=== PATIENT | male | born 1955 | race Caucasian/White ===

== ENCOUNTER → 2018-01-12 10:00 | Outpatient (CLI) | payer SELFPAY ==
--- NOTE | 2018-01-12 10:00 | DT_ITS ---
This patient was seen during an EMR downtime January 08, 2018 - January 15, 2018. This patient may have a combination of paper and electronic documentation or all paper documentation. All documentation is viewable within the e-chart portion of [employer] for each patient visit.
[2018-01-12 14:29] LABS: AST(SGOT) 22 U/L (15-37); Alanine Aminotransfer ALT/SGPT 31 U/L (16-61); Albumin, Serum 3.7 g/dL (3.2-5.0); Alkaline Phosphatase 56 U/L (45-117); Bilirubin, Direct 0.15 mg/dL (0.00-0.30); Cholesterol 136 mg/dL (200); Globulin 3.2 g/dL (2.2-4.2); High Density Lipoprotein 41 mg/dL; Protein, Total 6.9 g/dL (6.4-8.2); Triglycerides 69 mg/dL; Very Low Density Lipoprotein 14 mg/dL (5-40)
== END ==
PROVIDERS: Family Provider Family Medicine; PCP Family Medicine; Visit Provider Nurse Practitioner Family
DX: E78.5 Hyperlipidemia, unspecified (principal); Z79.899 Other long term (current) drug therapy
CPT/HCPCS: 36415; 80061; 80076

== ENCOUNTER → 2018-06-15 10:20 | Outpatient (CLI) | payer OTHER, SELFPAY ==
[2018-06-15 11:35] LABS: AST(SGOT) 24 U/L (15-37); Alanine Aminotransfer ALT/SGPT 34 U/L (16-61); Albumin, Serum 3.9 g/dL (3.2-5.0); Alkaline Phosphatase 57 U/L (45-117); Bilirubin, Direct 0.17 mg/dL (0.00-0.30); Cholesterol 148 mg/dL (200); Globulin 3.2 g/dL (2.2-4.2); High Density Lipoprotein 46 mg/dL; PSA,Total- Diagnostic < 0.01 ng/mL (0.0-4.0); Protein, Total 7.1 g/dL (6.4-8.2); Triglycerides 86 mg/dL; Very Low Density Lipoprotein 17 mg/dL (5-40)
== END ==
PROVIDERS: Physician Assistant Medical; Family Provider Family Medicine; PCP Family Medicine; Referring Provider Urology; Visit Provider Urology
DX: I25.10 Atherosclerotic heart disease of native coronary artery without angina pectoris (principal); E78.5 Hyperlipidemia, unspecified; C61 Malignant neoplasm of prostate
CPT/HCPCS: 36415; 80061; 80076; 84153

== ENCOUNTER → 2019-02-01 09:42 | Outpatient (CLI) | payer OTHER, SELFPAY ==
[2019-02-01 10:44] LABS: AST(SGOT) 27 U/L (15-37); Alanine Aminotransfer ALT/SGPT 39 U/L (16-61); Albumin, Serum 3.8 g/dL (3.2-5.0); Alkaline Phosphatase 58 U/L (45-117); Cholesterol 136 mg/dL (200); Globulin 2.9 g/dL (2.2-4.2); High Density Lipoprotein 41 mg/dL; Protein, Total 6.7 g/dL (6.4-8.2); Triglycerides 85 mg/dL; Very Low Density Lipoprotein 17 mg/dL (5-40)
== END ==
PROVIDERS: Family Provider Family Medicine; PCP Family Medicine; Referring Provider Physician Assistant Medical; Visit Provider Physician Assistant Medical
DX: E78.5 Hyperlipidemia, unspecified (principal)
CPT/HCPCS: 36415; 80061; 80076

== ENCOUNTER → 2019-06-20 14:30 | Outpatient (CLI) | payer OTHER, SELFPAY ==
[2019-02-11 15:11] VITALS: BMI 27.1
[2019-06-20 15:50] LABS: PSA,Total- Diagnostic < 0.01 ng/mL (0.0-4.0)
== END ==
PROVIDERS: Family Provider Family Medicine; PCP Family Medicine; Referring Provider Urology; Visit Provider Urology
DX: C61 Malignant neoplasm of prostate (principal)
CPT/HCPCS: 36415; 84153

== ENCOUNTER → 2019-07-24 10:02 | Outpatient (CLI) | payer OTHER, SELFPAY ==
[2019-07-24 11:55] LABS: AST(SGOT) 23 U/L (15-37); Alanine Aminotransfer ALT/SGPT 39 U/L (16-61); Albumin, Serum 3.9 g/dL (3.2-5.0); Alkaline Phosphatase 55 U/L (45-117); Bilirubin, Direct 0.19 mg/dL (0.00-0.30); Cholesterol 134 mg/dL (200); Globulin 2.9 g/dL (2.2-4.2); High Density Lipoprotein 41 mg/dL; Protein, Total 6.8 g/dL (6.4-8.2); Triglycerides 82 mg/dL; Very Low Density Lipoprotein 16 mg/dL (5-40)
== END ==
PROVIDERS: Family Provider Family Medicine; PCP Family Medicine; Referring Provider Physician Assistant Medical; Visit Provider Physician Assistant Medical
DX: E78.5 Hyperlipidemia, unspecified (principal)
CPT/HCPCS: 36415; 80061; 80076

== ENCOUNTER → 2020-01-14 15:41 | Outpatient (CLI) | payer OTHER, SELFPAY ==
[2019-08-22 15:47] VITALS: BMI 26.8
[2020-01-15 07:22] LABS: SARS-COV-2 TOTAL ABS Nonreactive (Nonreactive)
== END ==
PROVIDERS: PCP Family Medicine; Visit Provider Family Medicine
DX: Z20.828 Contact with and (suspected) exposure to other viral communicable diseases (principal)
CPT/HCPCS: 86769; G2023

== ENCOUNTER → 2020-02-10 10:39 | Outpatient (CLI) | payer OTHER, SELFPAY ==
[2019-08-22 15:47] VITALS: BMI 26.8
[2020-02-10 12:32] LABS: AST(SGOT) 20 U/L (15-37); Alanine Aminotransfer ALT/SGPT 28 U/L (16-61); Albumin, Serum 3.8 g/dL (3.2-5.0); Alkaline Phosphatase 58 U/L (45-117); Bilirubin, Direct 0.19 mg/dL (0.00-0.30); Cholesterol 132 mg/dL (200); Globulin 3.1 g/dL (2.2-4.2); High Density Lipoprotein 42 mg/dL; Protein, Total 6.9 g/dL (6.4-8.2); Triglycerides 81 mg/dL; Very Low Density Lipoprotein 16 mg/dL (5-40)
== END ==
PROVIDERS: PCP Family Medicine; Referring Provider Internal Medicine Cardiovascular Disease; Visit Provider Internal Medicine Cardiovascular Disease
DX: E78.00 Pure hypercholesterolemia, unspecified (principal); E78.5 Hyperlipidemia, unspecified
CPT/HCPCS: 36415; 80061; 80076

== ENCOUNTER 2020-02-20 08:39 | Day surgery (SDC) | payer OTHER, SELFPAY ==
--- NOTE | 2020-02-17 02:50 | HP_ITS ---
HPI HPI History of Present Illness Surgical H&P: Yes Details: OLESYA LANDON, is a 64 year old white male who presents to the office today for a cardiovascular follow-up with a history of coronary artery disease with a non-Q-wave myocardial infarction, s/p PCI (RCA), cardiomyopathy, VT, ICD placement, and hyperlipidemia. He does not have any chest discomfort/heaviness/tightness. His exercise tolerance is stable for his age. He does not have any worsening symptoms of shortness of breath. He denies any PND. He does not have any orthopnea. He does not have any symptoms of congestive heart failure. He does not have any palpitations that he is aware of. He does not have any lightheadedness or dizziness. He does not have any near-syncope or syncope. He does not have any lower extremity edema. He does not have any symptoms of claudication. He denies any ICD discharges. His ICD was interrogated today. He appears to now be in need of upcoming ICD generator change. Otherwise he had no VT or VF findings. His lipids were checked recently. His total cholesterol was 132 with an LDL of 74 and an HDL of 42. His triglycerides were 81. 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 Accompanied by: Self Allergies adhesive Allergy (Verified 02/17/20 14:13) Rash amoxicillin trihydrate [From Augmentin] Allergy (Verified 02/17/20 14:13) Hives potassium clavulanate [From Augmentin] Allergy (Verified 02/17/20 14:13) Hives sulfamethoxazole [From Bactrim] Allergy (Verified 02/17/20 14:13) Hives trimethoprim [From Bactrim] Allergy (Verified 02/17/20 14:13) Hives Medications Aspirin 325 mg PO QHS 07/18/13 [History Confirmed 02/17/20] Folic Acid 0.8 mg PO DAILY@0800 07/18/13 [History Confirmed 02/17/20] Lorazepam 1 mg PO QHS 05/14/14 [History Confirmed 02/17/20] boasajzj-tzt-vnneg acid 300 mcg-lycopene 600 mcg-lutein 300 mcg tablet tab PO 07/12/17 [History Confirmed 02/17/20] enalapril maleate 20 mg tablet 20 mg PO QHS #90 tab 05/23/19 [Rx Confirmed 02/17/20] metoprolol tartrate 50 mg tablet 50 mg PO BID #180 tab 06/25/19 [Rx Confirmed 02/17/20] nitroglycerin 0.4 mg sublingual tablet 0.4 mg SUBLINGUAL Q5M PRN #25 tab 06/28/19 [Rx Confirmed 02/17/20] pravastatin 40 mg tablet 40 mg PO DAILY #90 tab 06/28/19 [Rx Confirmed 02/17/20] verapamil 360 mg 24 hr capsule,extended release 360 mg PO DAILY #90 cap 07/12/19 [Rx Confirmed 02/17/20] citalopram 40 mg tablet 40 mg PO DAILY tab 08/22/19 [History Confirmed 02/17/20] [facility] Medical History Premature ventricular contraction (Acute) Essential hypertension (Chronic) Hyperlipidemia (Chronic) Subsequent ST elevation (STEMI) myocardial infarction of inferior wall (Chronic) Old myocardial infarction (Chronic) Atherosclerotic heart disease of [place] coronary artery without angina pectoris (Chronic) Ventricular tachycardia (Chronic) Palpitations (Chronic) Prostate cancer (Chronic) Surgical History History of coronary artery stent placement (Chronic ~12/2001) H/O cardiac radiofrequency ablation (Chronic ~04/2002) Presence of automatic (implantable) cardiac defibrillator (Chronic) Presence of coronary angioplasty implant and graft (Chronic) History of basal cell carcinoma excision (Resolved) History of hernia repair (Resolved) History of prostatectomy (Resolved) History of tonsillectomy (Resolved) Social History (Updated 02/17/20 @ 14:[address] Abdi Reyna MD) Smoking Status: Former smoker Electronic Cigarette Use: not used second hand exposure: No alcohol intake: current alcohol intake frequency: holidays/special occasions only Alcohol type: hard liquor substance use type: does not use what type of physical activity do you participate in: other details: [employer] frequency: 3-4 times per week duration: > 90 minutes/day seatbelt use: always do you feel safe at home: Yes ROS Const Const: Negative for fatigue, weakness, frequent falls, excessive sweating, weight gain or weight loss Eyes Eyes: Negative for transient loss of vision, blurry vision or change in vision ENT ENT: Negative for dizziness or balance problems Cardio Chest Pain: No Palpitations: Yes (occasional) feels like its: irregular Edema: None Muscle aches with walking: None Resp Respiratory: Negative for SOB with activity or SOB at rest GI GI: Negative vomiting or vomiting blood/hematemesis : Negative for hematuria Musc Musc: Negative for muscle aches/ myalgia, muscle weakness, joint pain or balance problems Skin Skin: Negative non-healing lesions or rash Neuro Neuro: Negative for dizziness, lightheadedness, orthostatic symptoms, frequent falls, weakness or blurry vision Fady Hematologic/Lymphatic: Negative for easy bleeding Endo Endo: Negative for fatigue or excessive sweating Psych Psych: Negative for anxiety or depression Allergy Allergy/Immunology: Negative for hives, Negative for rash Cardiology Exam Const Appearance: cooperative, healthy appearing, comfortable, no acute distress, well developed and well groomed Nutritional Appearance: average body habitus and well nourished Orientation: alert, awake and oriented x3 Head Head: normal to inspection, normocephalic and atraumatic Ears: hearing grossly normal bilaterally Nose: external nose normal Face and Sinus: face symmetric Eyes Eyelids: eyelids normal Conjunctivae: conjunctivae normal Pupils: PERRL EOM: EOM intact bilaterally Neck Neck: normal visual inspection, full ROM and no JVD Carotids: normal carotid upstroke; negative bruit Neck Mass: Negative Neck mass Chest Chest inspection: normal inspection of the chest, symmetric chest movement, Pacemaker/ICD Yes left pectoral incision and normal respiratory effort Auscultation: Bilateral: Clear to Auscultation Cardio Palpation: normal PMI Rate: regular rate Rhythm: regular rhythm Heart sounds: S1 normal, S2 normal and positive S4; negative rub, gallop or murmur GI GI: normal to inspection, soft and bowel sounds present; negative tender Neuro General: alert, awake, oriented x3 and moves all extremities Skin Skin: no rashes or lesions noted Extremities Pulses: Normal: Right Posterior Tibial Pulse, Left Posterior Tibial Pulse, Right Radial Pulse, Left Radial Pulse Lower Extremity Edema: None: Bilateral Psych Psychological: normal affect Assessment & Plan 1. Atherosclerosis of [place] coronary artery of [place] heart without angina pectoris I25.10 Plan At the present time he denies any ongoing symptoms of classic angina pectoris. He will continue medical management and follow-up. Orders Orders: 12 Lead EKG performed by [facility] Today 2. H/O heart artery stent Z95.5 PTCA/stent of the RCA Plan He does have a history of remote PCI. He has been doing well with no acute symptoms or adverse events. He will continue medical therapy and follow-up. Orders Orders: 12 Lead EKG performed by [facility] Today 3. Ventricular tachycardia I47.2 Plan He has not had any recurrent VT. He will continue medical management and follow-up. 4. History of cardiac radiofrequency ablation (RFA) Z98.890 Plan He has a history of previous RFA. Again he appears to be doing well with his rate and his rhythm. He will continue medical therapy and follow-up. 5. ICD (implantable cardioverter-defibrillator) in place Z95.810 Plan He has an ICD. Per his report today there was no VT or VF. However his ICD is now in need of generator change. Orders Orders: 12 Lead EKG performed by BMS Today 6. Hyperlipidemia, unspecified hyperlipidemia type E78.5 Plan His lipid labs were reviewed as noted above. He will continue medical management. 7. Essential hypertension I10 Plan His blood pressure appears to be well controlled. He will continue medical therapy. Plan Detail Other Orders Orders: 12 Lead EKG performed by [facility] Today I22.1 Additional Comments Thank you for allowing me to participate in the care of your patient. Please don't hesitate to call if any issues arise. This note was generated using a voice recognition system and there may be incorrect words, spelling or punctuation that were not noted when reviewing the office note prior to saving. Follow Up 6 Months (+/- with PFM) Coding Level of Care Code Off vis,est,level 4 Diagnoses Atherosclerosis of [place] coronary artery of [place] heart without angina pectoris I25.10 ??[place] vs. transplanted heart: [place] heart H/O heart artery stent Z95.5 Ventricular tachycardia I47.2 History of cardiac radiofrequency ablation (RFA) Z98.890 ICD (implantable cardioverter-defibrillator) in place Z95.810 Hyperlipidemia, unspecified hyperlipidemia type E78.5 ??Hyperlipidemia type: unspecified Essential hypertension I10 Coding Level of Care Code Off vis,est,level 4 Diagnoses Atherosclerosis of [place] coronary artery of [place] heart without angina pectoris I25.10 ??[place] vs. transplanted heart: [place] heart H/O heart artery stent Z95.5 Ventricular tachycardia I47.2 History of cardiac radiofrequency ablation (RFA) Z98.890 ICD (implantable cardioverter-defibrillator) in place Z95.810 Hyperlipidemia, unspecified hyperlipidemia type E78.5 ??Hyperlipidemia type: unspecified Essential hypertension I10 Supplemental Info Supplemental Information Transthoracic echocardiogram: 05/09/2014 Interpretation Summary The study was technically difficult. Mild segmental systolic dysfunction (see wall motion). The estimated ejection fraction is 45 %. Mild (1+) mitral valve insufficiency. Trivial tricuspid valve insufficiency. ICD or pacer leads identified within the right atrium ICD or pacer leads identified within the right ventricle. Labs LDL Cholesterol 74 mg/dL (0-130) 02/10/20 HDL Cholesterol 42 mg/dL (40-) 02/10/20 Triglycerides 81 mg/dL (-199) 02/10/20 VLDL Cholesterol 16 mg/dL (5-40) 02/10/20 Diagnostics Electrocardiogram 02/17/20 Echocardiogram 05/09/14 Pacemaker Check 08/22/19 Chest X-Ray 06/23/17 02/17/20 1451 <Electronically signed by Abdi hudson MD> Date _ Abdi Reyna MD Addendum: Date: 02-20-2020 The surgeon/proceduralist and patient have discussed in detail the risk of exposure to and/or potential harm posed by the COVID-19 virus with having a surgery/procedure at this time versus the risk of delaying the surgery/procedure. It is not possible to know either the risk of delaying the surgery or procedure or chance of getting an infection with perfect accuracy, but a joint decision was made between the patient and the surgeon/proceduralist to proceed at this time with the scheduled surgery/procedure as indicated on the consent form. I have re-examined the patient. There are no clinical changes since date of exam.
[2020-02-17 14:08] VITALS: BMI 26.3
[2020-02-18 10:43] LABS: Bacteria 0 SEEN /hpf (None Seen); Mucous, Urine 0 SEEN /hpf (<or=2+); White Blood Cells 0 SEEN /hpf (0-5)
[2020-02-18 11:06] LABS: Hematocrit 44.8 % (40-54); Mean Corp Hgb Conc 33.5 g/dL (32-36); Mean Corpuscular Hgb 30.5 pg (27.0-32.0); Mean Corpuscular Volume 91.1 fL (80-94); Mean Platelet Vol. 10.1 fl (6.2-12.0); Platelet Count 155 K/mm3 (150-450); RBC Distribution Width CV 12.4 % (11.6-14.6); RBC Distribution Width SD 41.3 fl (35.1-43.9); Red Blood Count 4.92 M/mm3 (4.6-6.2); White Blood Count 6.4 K/mm3 (4.4-11.0)
[2020-02-18 11:09] LABS: Color, Urine Yellow (Yellow); Glucose, Dipstick Normal (Normal); Ketone-Dipstick Negative (Negative); Leukocyte Esterase-Dipstick Negative /ul (Negative); Nitrite-Dipstick Negative (Negative); Occult Blood-Urine 10 /ul (Negative); Protein-Dipstick Negative (Negative); Urine Bilirubin Dipstick Negative (Negative); Urine Clarity Sl. Cloudy (Clear); Urine Urobilinogen Normal (Normal)
[2020-02-18 11:14] LABS: International Normalized Ratio 1.1; Prothrombin Time (Protime)PT. 13.4 SECONDS (11.7-14.9)
[2020-02-18 11:17] LABS: Red Blood Cells-Urine 0-5 SEEN /hpf (0-5); Squamous Epithelial Cells - UA 0-5 SEEN /hpf (0-5)
[2020-02-18 11:50] LABS: Anion Gap 4 (5-15); BUN 15 mg/dL (7-18); BUN/Creat Ratio 12.3 RATIO (10-20); Calcium,Total 8.6 mg/dL (8.5-10.1); Chloride 106 mmol/L (98-107); Creatinine, Serum 1.22 mg/dL (0.70-1.30); EST Glomerular Filtration Rate 63 mL/min (>60); Est Glom Filt Rate - Afr Amer 76 mL/min (>60); Glucose 123 mg/dL (74-106); Potassium 3.8 mmol/L (3.5-5.1); Sodium Level 141 mmol/L (136-145)
[2020-02-19 07:56] VITALS: BMI 26.3
--- NOTE | 2020-02-19 08:50 | HP.PCM_ITS ---
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 He has a history of coronary artery disease with a non-Q-wave myocardial infarction, s/p PCI (RCA), cardiomyopathy, VT, ICD placement, and hyperlipidemia. He does not have any chest discomfort/heaviness/tightness. His exercise tolerance is stable for his age. He does not have any worsening symptoms of shortness of breath. He denies any PND. He does not have any orthopnea. He does not have any symptoms of congestive heart failure. He does not have any palpitations that he is aware of. He does not have any lightheadedness or dizziness. He does not have any near-syncope or syncope. He does not have any lower extremity edema. He does not have any symptoms of claudication. He denies any ICD discharges. His ICD was interrogated on 02/17/2020. It showed he is in need of a ICD generator change. Otherwise he had no VT or VF findings. His lipids were checked recently. His total cholesterol was 132 with an LDL of 74 and an HDL of 42. His triglycerides were 81. 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 Accompanied by: Self Allergies adhesive Allergy (Verified 02/17/20 14:13) Rash amoxicillin trihydrate [From Augmentin] Allergy (Verified 02/17/20 14:13) Hives potassium clavulanate [From Augmentin] Allergy (Verified 02/17/20 14:13) Hives sulfamethoxazole [From Bactrim] Allergy (Verified 02/17/20 14:13) Hives trimethoprim [From Bactrim] Allergy (Verified 02/17/20 14:13) Hives Medications on 02/17/2020 Aspirin 325 mg PO QHS 07/18/13 [History Confirmed 02/17/20] Folic Acid 0.8 mg PO DAILY@0800 07/18/13 [History Confirmed 02/17/20] Lorazepam 1 mg PO QHS 05/14/14 [History Confirmed 02/17/20] nozjtspc-pic-ycckr acid 300 mcg-lycopene 600 mcg-lutein 300 mcg tablet tab PO 07/12/17 [History Confirmed 02/17/20] enalapril maleate 20 mg tablet 20 mg PO QHS #90 tab 05/23/19 [Rx Confirmed 02/17/20] metoprolol tartrate 50 mg tablet 50 mg PO BID #180 tab 06/25/19 [Rx Confirmed 02/17/20] nitroglycerin 0.4 mg sublingual tablet 0.4 mg SUBLINGUAL Q5M PRN #25 tab 06/28/19 [Rx Confirmed 02/17/20] pravastatin 40 mg tablet 40 mg PO DAILY #90 tab 06/28/19 [Rx Confirmed 02/17/20] verapamil 360 mg 24 hr capsule,extended release 360 mg PO DAILY #90 cap 07/12/19 [Rx Confirmed 02/17/20] citalopram 40 mg tablet 40 mg PO DAILY tab 08/22/19 [History Confirmed 02/17/20] [facility] Medical History Premature ventricular contraction (Acute) Essential hypertension (Chronic) Hyperlipidemia (Chronic) Subsequent ST elevation (STEMI) myocardial infarction of inferior wall (Chronic) Old myocardial infarction (Chronic) Atherosclerotic heart disease of [place] coronary artery without angina pectoris (Chronic) Ventricular tachycardia (Chronic) Palpitations (Chronic) Prostate cancer (Chronic) Surgical History History of coronary artery stent placement (Chronic ~12/2001) H/O cardiac radiofrequency ablation (Chronic ~04/2002) Presence of automatic (implantable) cardiac defibrillator (Chronic) Presence of coronary angioplasty implant and graft (Chronic) History of basal cell carcinoma excision (Resolved) History of hernia repair (Resolved) History of prostatectomy (Resolved) History of tonsillectomy (Resolved) Social History (Updated 02/17/20 @ 14:[address] 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 duration: > 90 minutes/day seatbelt use: always do you feel safe at home: Yes ROS Const Const: Negative for fatigue, weakness, frequent falls, excessive sweating, weight gain or weight loss Eyes Eyes: Negative for transient loss of vision, blurry vision or change in vision ENT ENT: Negative for dizziness or balance problems Cardio Chest Pain: No Palpitations: Yes (occasional) feels like its: irregular Edema: None Muscle aches with walking: None Resp Respiratory: Negative for SOB with activity or SOB at rest GI GI: Negative vomiting or vomiting blood/hematemesis : Negative for hematuria Musc Musc: Negative for muscle aches/ myalgia, muscle weakness, joint pain or balance problems Skin Skin: Negative non-healing lesions or rash Neuro Neuro: Negative for dizziness, lightheadedness, orthostatic symptoms, frequent falls, weakness or blurry vision Fady Hematologic/Lymphatic: Negative for easy bleeding Endo Endo: Negative for fatigue or excessive sweating Psych Psych: Negative for anxiety or depression Allergy Allergy/Immunology: Negative for hives, Negative for rash Cardiology Exam Const Appearance: cooperative, healthy appearing, comfortable, no acute distress, well developed and well groomed Nutritional Appearance: average body habitus and well nourished Orientation: alert, awake and oriented x3 Head Head: normal to inspection, normocephalic and atraumatic Ears: hearing grossly normal bilaterally Nose: external nose normal Face and Sinus: face symmetric Eyes Eyelids: eyelids normal Conjunctivae: conjunctivae normal Pupils: PERRL EOM: EOM intact bilaterally Neck Neck: normal visual inspection, full ROM and no JVD Carotids: normal carotid upstroke; negative bruit Neck Mass: Negative Neck mass Chest Chest inspection: normal inspection of the chest, symmetric chest movement, Pacemaker/ICD Yes left pectoral incision and normal respiratory effort Auscultation: Bilateral: Clear to Auscultation Cardio Palpation: normal PMI Rate: regular rate Rhythm: regular rhythm Heart sounds: S1 normal, S2 normal and positive S4; negative rub, gallop or murmur GI GI: normal to inspection, soft and bowel sounds present; negative tender Neuro General: alert, awake, oriented x3 and moves all extremities Skin Skin: no rashes or lesions noted Extremities Pulses: Normal: Right Posterior Tibial Pulse, Left Posterior Tibial Pulse, Right Radial Pulse, Left Radial Pulse Lower Extremity Edema: None: Bilateral Psych Psychological: normal affect Assessment & Plan 1. Atherosclerosis of [place] coronary artery of [place] heart without angina pectoris I25.10 Plan At the present time he denies any ongoing symptoms of classic angina pectoris. He will continue medical management and follow-up. 2. H/O heart artery stent Z95.5 PTCA/stent of the RCA Plan He does have a history of remote PCI. He has been doing well with no acute symptoms or adverse events. He will continue medical therapy and follow-up. 3. Ventricular tachycardia I47.2 Plan He has not had any recurrent VT. He will continue medical management and follow-up. 4. History of cardiac radiofrequency ablation (RFA) Z98.890 Plan He has a history of previous RFA. Again he appears to be doing well with his rate and his rhythm. He will continue medical therapy and follow-up. 5. ICD (implantable cardioverter-defibrillator) in place Z95.810 Plan He has an ICD. Per his report on 02/17/2020 there was no VT or VF. However his ICD is now in need of generator change. He will proceed with generator change 6. Hyperlipidemia, unspecified hyperlipidemia type E78.5 Plan His lipid labs were reviewed as noted above. He will continue medical management. 7. Essential hypertension I10 Plan His blood pressure appears to be well controlled. He will continue medical therapy. Plan Detail Additional Comments Thank you for allowing me to participate in the care of your patient. Please don't hesitate to call if any issues arise. This note was generated using a voice recognition system and there may be incorrect words, spelling or punctuation that were not noted when reviewing the office note prior to saving. Supplemental Info Supplemental Information Transthoracic echocardiogram: 05/09/2014 Interpretation Summary The study was technically difficult. Mild segmental systolic dysfunction (see wall motion). The estimated ejection fraction is 45 %. Mild (1+) mitral valve insufficiency. Trivial tricuspid valve insufficiency. ICD or pacer leads identified within the right atrium ICD or pacer leads identified within the right ventricle. Single-chamber ICD evaluation from 02/17/2020: Interrogation shows no VT/VF episodes since 08/22/2019. Interrogation shows battery performance notification on 02/17/2020. CT 9.8 seconds. Mckenna Rep, Chadwick Henriquez, notified and instructed to have generator change within 30-days of notification. Left pectoral pocket/incision without signs and symptoms of infection or erosion. Patient offers no cardiac complaints at present time. Presenting rhythm shows sinus bradycardia 55 bpm. Lead impedance, sensing, pacing/sensing threshold remained stable. No parameter changes made. Counters cleared. Patient scheduled for ICD generator change on 02/20/2020. Written and verbal instructions given including post implant wound check appointment. Patient has office visit today with Dr. Reyna for further cardiac evaluation. Patient's lab work will be done in a.m. Labs LDL Cholesterol 74 mg/dL (0-130) 02/10/20 HDL Cholesterol 42 mg/dL (40-) 02/10/20 Triglycerides 81 mg/dL (-199) 02/10/20 VLDL Cholesterol 16 mg/dL (5-40) 02/10/20 Diagnostics Electrocardiogram 02/17/20 Echocardiogram 05/09/14 Pacemaker Check 08/22/19 Chest X-Ray 06/23/17 Procedure Criteria Procedure Type: Elective COVID Risk Discussion: The surgeon/proceduralist and patient have discussed in detail the risk of exposure to and/or potential harm posed by the COVID-19 virus with having a surgery/procedure at this time versus the risk of delaying the surgery/procedure. It is not possible to know either the risk of delaying the surgery or procedure or chance of getting an infection with perfect accuracy, but a joint decision was made between the patient and the surgeon/proceduralist to proceed at this time with the scheduled surgery/procedure as indicated on the consent form.
--- NOTE | 2020-02-20 11:06 | OP.PCM_ITS ---
Report of Operation Date of Procedure: 02/20/20 Description of Surgical Findings:: Diagnosis: Cardiomyopathy with NYHA Class ii. ICD for SECONDARY prevention. Device generator replacement for normal battery depletion Preoperative diagnosis is device at end of life for normal battery depletion. Postoperative diagnosis same as above. After informed consent and IV antibiotics the patient was brought to the [facility] catheterization laboratory and the skin over the device was prepped and draped in the usual sterile manner. Intermittent boluses of Versed, and fentanyl were used for sedation and analgesia as well as 1% subcutaneous lidocaine. An incision was made over the pre-existing device. Using blunt and Bovie dissection the pocket was opened and the device was removed. Careful attention was paid not to injure the pre-existing leads. The leads were removed from the device header and they were interrogated. There is normal lead function. Hemostasis was obtained. The pocket was flushed with antibiotic solution. The sponge and needle count were correct. The new device was brought to the field. The leaD WAS placed in the appropriate position in the header and secured by the set screw. The lead and the device were then placed in the pocket. The pocket was closed with a deep layer of running 2-0 Vicryl, a superficial layer of running 4-0 Vicryl, skin with Steri-Strips which were covered with a rolled 4 x 4 and Tegaderm. Patient left the room with the device programmed to proper parameters and there were no complications. The device is a vvi chamber posey generator. All lead parameters were tested and found to be functionally normal. Lead and device serial and model numbers are available in the chart documents provided by the device company client service representative procedure summary.
== END 2020-02-20 12:50 | disposition home or self-care (01) ==
LOC: CLSP 08:39
PROVIDERS: Internal Medicine Cardiovascular Disease; PCP Family Medicine; Referring Provider Internal Medicine Cardiovascular Disease; Visit Provider Internal Medicine Cardiovascular Disease
DX: Z45.010 Encounter for checking and testing of cardiac pacemaker pulse generator [battery] (principal); I42.9 Cardiomyopathy, unspecified; I25.2 Old myocardial infarction; E78.5 Hyperlipidemia, unspecified; I25.10 Atherosclerotic heart disease of native coronary artery without angina pectoris; Z79.899 Other long term (current) drug therapy; Z79.82 Long term (current) use of aspirin; I47.2 Ventricular tachycardia; I10 Essential (primary) hypertension; Z87.891 Personal history of nicotine dependence
CPT/HCPCS: 33262; 36415; 80048; 81001; 85027; 85610; 87635; 93641; 99152; 99153; G2023; J7040; J7050; U0003

== ENCOUNTER → 2020-05-22 13:34 | Outpatient (CLI) | payer OTHER, SELFPAY ==
[2020-02-19 07:56] VITALS: BMI 26.3
[2020-05-22 15:53] LABS: PSA,Total- Diagnostic < 0.01 ng/mL (0.0-4.0)
== END ==
PROVIDERS: PCP Family Medicine; Referring Provider Urology; Visit Provider Urology
DX: C61 Malignant neoplasm of prostate (principal)
CPT/HCPCS: 36415; 84153

== ENCOUNTER → 2020-10-08 10:06 | Outpatient (CLI) | payer OTHER, SELFPAY ==
[2020-02-19 07:56] VITALS: BMI 26.3
[2020-10-08 11:05] LABS: AST(SGOT) 19 U/L (15-37); Alanine Aminotransfer ALT/SGPT 25 U/L (16-61); Albumin, Serum 3.8 g/dL (3.2-5.0); Alkaline Phosphatase 64 U/L (45-117); Bilirubin, Direct 0.17 mg/dL (0.00-0.30); Cholesterol 149 mg/dL (200); Globulin 2.9 g/dL (2.2-4.2); High Density Lipoprotein 47 mg/dL; Protein, Total 6.7 g/dL (6.4-8.2); Triglycerides 77 mg/dL; Very Low Density Lipoprotein 15 mg/dL (5-40)
== END ==
PROVIDERS: PCP Family Medicine; Referring Provider Internal Medicine Cardiovascular Disease; Visit Provider Internal Medicine Cardiovascular Disease
DX: E78.00 Pure hypercholesterolemia, unspecified (principal); E78.5 Hyperlipidemia, unspecified
CPT/HCPCS: 36415; 80061; 80076

== ENCOUNTER → 2021-04-08 10:31 | Outpatient (CLI) | payer OTHER, SELFPAY ==
[2021-04-08 11:54] LABS: AST(SGOT) 20 U/L (15-37); Alanine Aminotransfer ALT/SGPT 27 U/L (16-61); Albumin, Serum 3.9 g/dL (3.2-5.0); Alkaline Phosphatase 58 U/L (45-117); Bilirubin, Direct 0.16 mg/dL (0.00-0.30); Cholesterol 135 mg/dL (200); Globulin 3.1 g/dL (2.2-4.2); High Density Lipoprotein 44 mg/dL; Triglycerides 66 mg/dL; Very Low Density Lipoprotein 13 mg/dL (5-40)
== END ==
PROVIDERS: PCP Family Medicine; Referring Provider Internal Medicine Cardiovascular Disease; Visit Provider Internal Medicine Cardiovascular Disease
DX: E78.00 Pure hypercholesterolemia, unspecified (principal); E78.5 Hyperlipidemia, unspecified
CPT/HCPCS: 36415; 80061; 80076

== ENCOUNTER → 2021-06-03 16:31 | Outpatient (CLI) | payer OTHER, SELFPAY ==
[2020-10-12 14:43] VITALS: BMI 26.4
[2021-06-03 17:56] LABS: PSA,Total- Diagnostic < 0.01 ng/mL (0.0-4.0)
== END ==
PROVIDERS: PCP Family Medicine; Visit Provider Urology
DX: C61 Malignant neoplasm of prostate (principal)
CPT/HCPCS: 36415; 84153

== ENCOUNTER 2021-10-19 09:57 | Outpatient (CLI) | payer MEDICARE, OTHER, SELFPAY ==
[2021-10-19 11:55] LABS: AST(SGOT) 21 U/L (15-37); Alanine Aminotransfer ALT/SGPT 27 U/L (16-61); Albumin, Serum 3.8 g/dL (3.2-5.0); Alkaline Phosphatase 57 U/L (45-117); Bilirubin, Direct 0.11 mg/dL (0.00-0.30); Cholesterol 144 mg/dL (200); High Density Lipoprotein 45 mg/dL; Protein, Total 6.8 g/dL (6.4-8.2); Triglycerides 101 mg/dL; Very Low Density Lipoprotein 20 mg/dL (5-40)
== END 2021-10-19 23:59 | disposition home or self-care (01) ==
PROVIDERS: PCP Family Medicine; Referring Provider Internal Medicine Cardiovascular Disease; Visit Provider Internal Medicine Cardiovascular Disease
DX: E78.00 Pure hypercholesterolemia, unspecified (principal)
CPT/HCPCS: 36415; 80061; 80076

== ENCOUNTER → 2022-04-25 | Outpatient (CLI) | payer MEDICARE, OTHER, SELFPAY ==
[2022-04-25 12:54] LABS: AST(SGOT) 21 U/L (15-37); Alanine Aminotransfer ALT/SGPT 25 U/L (16-61); Albumin, Serum 3.8 g/dL (3.2-5.0); Alkaline Phosphatase 55 U/L (45-117); Bilirubin, Direct 0.14 mg/dL (0.00-0.30); Cholesterol 138 mg/dL (200); Globulin 3.1 g/dL (2.2-4.2); High Density Lipoprotein 41 mg/dL; Protein, Total 6.9 g/dL (6.4-8.2); Triglycerides 103 mg/dL; Very Low Density Lipoprotein 21 mg/dL (5-40)
== END | disposition home or self-care (01) ==
PROVIDERS: PCP Family Medicine; Visit Provider Internal Medicine Cardiovascular Disease
DX: E78.00 Pure hypercholesterolemia, unspecified (principal)
CPT/HCPCS: 36415; 80061; 80076

== ENCOUNTER → 2022-06-07 | Outpatient (CLI) | payer MEDICARE, OTHER, SELFPAY ==
[2022-06-07 17:42] LABS: PSA,Total- Diagnostic < 0.01 ng/mL (0.0-4.0)
== END | disposition home or self-care (01) ==
LOC: LAB 16:07
PROVIDERS: PCP Family Medicine; Visit Provider Urology
DX: C61 Malignant neoplasm of prostate (principal)
CPT/HCPCS: 36415; 84153

== ENCOUNTER → 2022-06-13 | Outpatient (CLI) | payer MEDICARE, OTHER, SELFPAY ==
--- NOTE | 2022-06-13 | CYSPIN_PTH ---
PATIENT: OLESYA LANDON LOC: [facility] U#:[id number] AGE/SX: 66/M ROOM: RE06/13/[address]: Dr. Corona Webstre MD : 1955 BED: DIS: 06/13/2022 SPEC #: [id number] RECD: 06/14/22 08:22 STATUS: STEPHANIE REAlissa #: [id number] DULCE: 06/13/22 00:[address]: Corona Webster DEPT: CYTOLOGY RECD BY: Blaine Nelson ENTERED: 06/14/22 08:25 SP TYPE: CYSPIN FL OTHR DR: Dr. 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, DO Tissues: Urine Procedures: Pap Stain (control) Special Stain Group II Cytospin Fluid HEADER OPERATION: Not noted PRE-OP DIAGNOSIS: Microscopic hematuria TISSUE SUBMITTED: Urine for cytology DIAGNOSIS CYTOLOGY Urine for cytology (cytospin): Atypical urothelial cells are present ([place] Category III). See comment. AM:janine 06/14/2022 COMMENT The [place] System for urine cytology diagnostic categorization was used in the evaluation of this case. CYTOLOGY STUDY Slides are reviewed. CYTOLOGY GROSS Received is 30 ml of yellow cloudy fluid labeled with the patient's name and and designated per the requisition as urine. Submitted for cytology preparation. / janine 06/13/2022 TC:? CPT: 87537
[2022-06-13 16:00] LABS: Cytology, Body Fluid / CSF SEE PATHOLOGY REPORT
== END | disposition home or self-care (01) ==
LOC: LABSPEC 15:36
PROVIDERS: PCP Family Medicine; Visit Provider Urology
DX: R31.29 Other microscopic hematuria (principal)
CPT/HCPCS: 88108; 88313

== ENCOUNTER → 2022-11-25 | Outpatient (CLI) | payer MEDICARE, OTHER, SELFPAY ==
[2022-11-25 11:11] LABS: AST(SGOT) 28 U/L (15-37); Alanine Aminotransfer ALT/SGPT 52 U/L (16-61); Albumin, Serum 3.7 g/dL (3.2-5.0); Alkaline Phosphatase 57 U/L (45-117); Bilirubin, Direct 0.16 mg/dL (0.00-0.30); Cholesterol 136 mg/dL (200); Globulin 3.1 g/dL (2.2-4.2); High Density Lipoprotein 43 mg/dL; Protein, Total 6.8 g/dL (6.4-8.2); Triglycerides 94 mg/dL; Very Low Density Lipoprotein 19 mg/dL (5-40)
== END | disposition home or self-care (01) ==
LOC: LAB 10:28
PROVIDERS: PCP Family Medicine; Referring Provider Nurse Practitioner Family; Visit Provider Nurse Practitioner Family
DX: E78.00 Pure hypercholesterolemia, unspecified (principal)
CPT/HCPCS: 36415; 80061; 80076

== ENCOUNTER → 2023-05-29 | Outpatient (CLI) | payer MEDICARE, OTHER, SELFPAY ==
[2023-05-29 11:34] LABS: AST(SGOT) 19 U/L (15-37); Alanine Aminotransfer ALT/SGPT 32 U/L (16-61); Albumin, Serum 3.6 g/dL (3.2-5.0); Alkaline Phosphatase 59 U/L (45-117); Bilirubin, Direct 0.13 mg/dL (0.00-0.30); Cholesterol 142 mg/dL (200); Globulin 3.4 g/dL (2.2-4.2); High Density Lipoprotein 38 mg/dL; Triglycerides 80 mg/dL; Very Low Density Lipoprotein 16 mg/dL (5-40)
== END | disposition home or self-care (01) ==
LOC: LAB 10:25
PROVIDERS: PCP Family Medicine; Referring Provider Nurse Practitioner Family; Visit Provider Nurse Practitioner Family
DX: E78.00 Pure hypercholesterolemia, unspecified (principal)
CPT/HCPCS: 36415; 80061; 80076

== ENCOUNTER → 2023-06-13 | Outpatient (CLI) | payer MEDICARE, OTHER, SELFPAY ==
[2023-06-13 16:50] LABS: PSA,Total- Diagnostic < 0.01 ng/mL (0.0-4.0)
== END | disposition home or self-care (01) ==
LOC: LAB 16:09
PROVIDERS: PCP Family Medicine; Referring Provider Urology; Visit Provider Urology
DX: R31.21 Asymptomatic microscopic hematuria (principal)
CPT/HCPCS: 36415; 84153

== ENCOUNTER → 2023-06-19 | Outpatient (CLI) | payer MEDICARE, OTHER, SELFPAY ==
[2023-06-19 16:35] LABS: Bacteria 0 SEEN /hpf (None Seen); Mucous, Urine 0 SEEN /hpf (<or=2+); Red Blood Cells-Urine 0 SEEN /hpf (0-5); Squamous Epithelial Cells - UA 0 SEEN /hpf (0-5); White Blood Cells 0 SEEN /hpf (0-5)
[2023-06-19 16:58] LABS: Color, Urine Yellow (Yellow); Glucose, Dipstick Normal (Normal); Ketone-Dipstick Negative (Negative); Leukocyte Esterase-Dipstick Negative /ul (Negative); Nitrite-Dipstick Negative (Negative); Occult Blood-Urine Negative /ul (Negative); Protein-Dipstick Negative (Negative); Specific Gravity, Urine 1.005 (1.002-1.030); Urine Bilirubin Dipstick Negative (Negative); Urine Clarity Clear (Clear); Urine Urobilinogen Normal (Normal); Urine pH 6.5 (5.0 - 8.0)
== END | disposition home or self-care (01) ==
LOC: LABSPEC 16:22
PROVIDERS: PCP Family Medicine; Visit Provider Urology
DX: R31.21 Asymptomatic microscopic hematuria (principal)
CPT/HCPCS: 81001

== ENCOUNTER → 2024-01-18 | Outpatient (CLI) | payer MEDICARE, OTHER, SELFPAY ==
[2024-01-18 17:28] LABS: AST(SGOT) 35 U/L (15-37); Alanine Aminotransfer ALT/SGPT 39 U/L (16-61); Albumin, Serum 3.8 g/dL (3.2-5.0); Alkaline Phosphatase 64 U/L (45-117); Bilirubin, Direct 0.16 mg/dL (0.00-0.30); Cholesterol 138 mg/dL (200); Globulin 3.4 g/dL (2.2-4.2); High Density Lipoprotein 46 mg/dL; Protein, Total 7.2 g/dL (6.4-8.2); Triglycerides 89 mg/dL; Very Low Density Lipoprotein 18 mg/dL (5-40)
== END | disposition home or self-care (01) ==
LOC: LAB 10:22
PROVIDERS: PCP Family Medicine; Referring Provider Nurse Practitioner Family; Visit Provider Nurse Practitioner Family
DX: E78.00 Pure hypercholesterolemia, unspecified (principal)
CPT/HCPCS: 36415; 80061; 80076

== ENCOUNTER → 2024-02-20 | Outpatient (CLI) | payer MEDICARE, OTHER, SELFPAY ==
--- NOTE | 2024-02-20 06:57 | ECHOCS_ITS ---
Reason For Study: ASHD/CAD Procedure This was a 2D Doppler, Color Flow transthoracic echocardiogram. The study was technically difficult. Contrast injection was performed. Exam performed in department. Left Ventricle Normal LV size. Left ventricular systolic function is normal. The left ventricular ejection fraction is 55 %. Stage 1 diastolic dysfunction. No regional wall motion abnormalities noted. Right Ventricle Normal right ventricle. Normal systolic function. Atria Normal left atrium. Normal right atrium. Mitral Valve Normal mitral valve. Tricuspid Valve Normal tricuspid valve. Aortic Valve The aortic valve is not well visualized. Pulmonic Valve The pulmonic valve is not well visualized. Great Vessels Normal aortic root. The pulmonary artery is normal size. Normal inferior vena cava. Pericardium/Pleural No pericardial effusion. Medication 22 gauge I.V. with prn adaptor inserted into right arm. Diluted definity 1.5ml given slow IV push to enhance endocardial definition. MMode/2D Measurements & Calculations LVIDd: 4.4 cm IVSd: 0.89 cm Ao root diam: 3.3 cm LVIDs: 3.4 cm LVPWd: 0.93 cm LA dimension: 3.4 cm RVDd: 3.3 cm FS: 22.9 % LAV(MOD-bp): 53.6 ml LVAd ap4: 25.6 cm2 SV(MOD-sp4): 38.4 ml LAV(MOD-bp) Indexed: 26.3 ml/m2 LVLd ap4: 6.8 cm LAV(MOD-sp2): 50.2 ml EDV(MOD-sp4): 77.3 ml LAV(MOD-sp4): 48.8 ml EDV(sp4-el): 81.8 ml LVAs ap4: 16.7 cm2 LVLs ap4: 6.0 cm ESV(MOD-sp4): 38.9 ml ESV(sp4-el): 39.5 ml EF(MOD-sp4): 49.7 % EF(sp4-el): 51.7 % SV(sp4-el): 42.3 ml LA A4 area: 18.2 cm2 RA A4 area: 15.6 cm2 Time Measurements MV dec time: 0.31 sec Doppler Measurements & Calculations MV E max dimitris: 69.3 cm/sec Lat Peak E' Dimitris: 6.9 cm/sec Med Peak E' Dimitris: 5.1 cm/sec MV A max dimitris: 83.1 cm/sec E/E' lat: 10.0 E/E' med: 13.6 MV E/A: 0.83 MV V2 max: 88.0 cm/sec MV P1/2t max dimitris: 68.9 cm/sec Ao V2 max: 108.7 cm/sec MV max P.1 mmHg MV P1/2t: 91.7 msec Ao max P.7 mmHg MV V2 mean: 44.6 cm/sec Ao V2 mean: 68.0 cm/sec MV mean P.96 mmHg MV dec slope: 219.9 cm/sec2 Ao mean P.2 mmHg MV V2 VTI: 26.4 cm MVA(P1/2t): 2.4 cm2 Ao V2 VTI: 23.2 cm AV (velocity ratio): 0.85 LV V1 max: 84.8 cm/sec PA V2 max: 69.1 cm/sec LV V1 max P.9 mmHg LV V1 mean P.5 mmHg LV V1 mean: 56.0 cm/sec LV V1 VTI: 19.6 cm ECHO/Echo Complete W/ Contrast Interpretation Summary Normal LV size. Left ventricular systolic function is normal. The left ventricular ejection fraction is 55 %. Stage 1 diastolic dysfunction. Contrast injection was performed. Ordering Physician: Vin Doe Referring Physician: 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 Performed By: Onesimo Munoz RCS
--- NOTE | 2024-02-20 13:56 | STRESSREP ---
Stress Test Report Pharmacologic myocardial perfusion stress test. 68-year-old man with a history of coronary disease Resting EKG demonstrates sinus rhythm with a rate of 70 bpm. Resting blood pressure is 126/88 mmHg. 0.4 mg of regadenoson was infused per usual protocol followed by rapid intravenous saline flush injection. Continuous EKG monitoring was performed. The maximum heart rate was 100 bpm which was 66% of max impacted heart rate the maximum workload was 1 metabolic equivalent. At rest there were no ST or T wave changes noted to suggest ischemia and at peak infusion nonspecific ST changes were noted which did not meet the criteria for ischemia. No clinical angina is noted. The final blood pressure was 148/90 mmHg. Myocardial perfusion protocol. 14.3 mCi of technetium 99m sestamibi was injected at rest. 0.4 mg of regadenoson was infused per usual protocol. At peak infusion 44.1 mCi of technetium 99m sestamibi was injected stress images were obtained stress and rest images were reconstructed and compared in the short axis vertical long and horizontal long axis. Gated images were also obtained. Perfusion SPECT analysis: Review of the stress images demonstrate normal uptake of tracer noted in all areas of the myocardium. The resting images similar demonstrated normal uptake of tracer noted in all areas of the myocardium. No areas of reversibility are noted to suggest ischemia and no previous infarct is noted. Gated SPECT analysis: The gated ejection fraction is 58%. Conclusion: Normal pharmacologic myocardial perfusion stress test. Preserved ejection fraction.
== END | disposition home or self-care (01) ==
LOC: CVS 06:57
PROVIDERS: PCP Family Medicine; Referring Provider Internal Medicine Cardiovascular Disease; Visit Provider Internal Medicine Cardiovascular Disease
DX: Z95.5 Presence of coronary angioplasty implant and graft (principal); I25.10 Atherosclerotic heart disease of native coronary artery without angina pectoris
CPT/HCPCS: 78452; 93017; 93306; A9500; Q9957; A4216; C8929; J2785

== ENCOUNTER → 2024-06-18 | Outpatient (CLI) | payer MEDICARE, OTHER, SELFPAY ==
[2024-06-18 14:10] LABS: PSA,Total- Diagnostic 0.02 ng/mL (0.0-4.0)
== END | disposition home or self-care (01) ==
LOC: LAB 13:24
PROVIDERS: PCP Family Medicine; Referring Provider Urology; Visit Provider Urology
DX: C61 Malignant neoplasm of prostate (principal)
CPT/HCPCS: 36415; 84153

== ENCOUNTER → 2024-07-12 | Outpatient (CLI) | payer MEDICARE, OTHER, SELFPAY ==
[2024-07-12 11:35] LABS: AST(SGOT) 31 U/L (15-37); Alanine Aminotransfer ALT/SGPT 43 U/L (16-61); Albumin, Serum 3.8 g/dL (3.2-5.0); Alkaline Phosphatase 75 U/L (45-117); Bilirubin, Direct 0.15 mg/dL (0.00-0.30); Cholesterol 157 mg/dL (200); High Density Lipoprotein 46 mg/dL; Protein, Total 6.8 g/dL (6.4-8.2); Triglycerides 123 mg/dL; Very Low Density Lipoprotein 25 mg/dL (5-40)
== END | disposition home or self-care (01) ==
LOC: LAB 09:37
PROVIDERS: PCP Family Medicine; Referring Provider Nurse Practitioner Family; Visit Provider Nurse Practitioner Family
DX: E78.00 Pure hypercholesterolemia, unspecified (principal)
CPT/HCPCS: 36415; 80061; 80076

== ENCOUNTER → 2024-07-16 | Outpatient (CLI) | payer MEDICARE, OTHER, SELFPAY ==
[2024-07-16 18:14] LABS: Absolute Lymphocyte Count 2.02 X10^3/uL (0.83-4.51); Absolute Neutrophil Count 3.7 X10^3/uL (2.0-7.7); Basophil# 0.07 X10^3/uL; Eosinophil# 0.18 X10^3/uL; Eosinophils% 2.6 % (0-5); Hematocrit 47.8 % (40-54); Hemoglobin 15.4 g/dL (13.0-16.5); Lymphocyte # 2.02 X10^3/ul (0.83-4.51); Mean Corp Hgb Conc 32.2 g/dL (32-36); Mean Corpuscular Hgb 29.6 pg (27.0-32.0); Mean Corpuscular Volume 91.9 fL (80-94); Mean Platelet Vol. 10.2 fl (6.2-12.0); Monocyte# 0.95 X10^3/uL; Monocyte% 13.6 % (0-10); NRBC Flagged by Analyzer 0 % (0-5); Neutrophil # 3.72 X10^3/uL (2.7-7.7); Neutrophil % 53.5 % (47-70); Platelet Count 192 K/mm3 (150-450); RBC Distribution Width SD 44.3 fl (35.1-43.9)
[2024-07-16 18:42] LABS: Color, Urine Yellow (Yellow); Glucose, Dipstick Normal (Normal); Ketone-Dipstick Negative (Negative); Leukocyte Esterase-Dipstick Negative /ul (Negative); Nitrite-Dipstick Negative (Negative); Occult Blood-Urine 25 /ul (Negative); Protein-Dipstick 15 mg/dl (Negative); Specific Gravity, Urine 1.025 (1.002-1.030); Urine Bilirubin Dipstick Negative (Negative); Urine Clarity Clear (Clear); Urine Urobilinogen Normal (Normal)
[2024-07-16 19:00] LABS: Anion Gap 3 (5-15); BUN 18 mg/dL (7-18); BUN/Creat Ratio 14.2 RATIO (10-20); Calcium,Total 9.4 mg/dL (8.5-10.1); Chloride 105 mmol/L (98-107); Creatinine, Serum 1.27 mg/dL (0.70-1.30); EST Glomerular Filtration Rate 60 mL/min (>60); Est Glom Filt Rate - Afr Amer 72 mL/min (>60); Glucose 93 mg/dL (74-106); PSA,Total- Diagnostic < 0.01 ng/mL (0.0-4.0); Sodium Level 139 mmol/L (136-145)
== END | disposition home or self-care (01) ==
LOC: BFHLAB 14:30
PROVIDERS: PCP Family Medicine; Referring Provider Family Medicine; Visit Provider Family Medicine
DX: R31.29 Other microscopic hematuria (principal); I10 Essential (primary) hypertension; Z85.46 Personal history of malignant neoplasm of prostate
CPT/HCPCS: 36415; 80048; 81002; 84153; 85025

== ENCOUNTER → 2025-01-13 | Outpatient (CLI) | payer MEDICARE, OTHER, SELFPAY ==
[2025-01-13 13:52] LABS: Cholesterol 146 mg/dL (<=200); High Density Lipoprotein 45 mg/dL; Low Density Lipoprotein Calc. 88 mg/dL; Triglycerides 66 mg/dL; Very Low Density Lipoprotein 13 mg/dL (5-40); cholesterol:hdl ratio screen 3.23
[2025-01-13 13:53] LABS: AST(SGOT) 37 U/L (<=37); Alanine Aminotransfer ALT/SGPT 39 U/L (<=46); Albumin, Serum 4.2 g/dL (3.4-4.8); Alkaline Phosphatase 77 U/L (40-129); Bilirubin, Direct 0.13 mg/dL (0.00-0.30); Globulin 2.6 g/dL (2.2-4.2); Protein, Total 6.8 g/dL (5.9-8.4); Total Bilirubin 0.36 mg/dL (0.00-1.30)
== END | disposition home or self-care (01) ==
LOC: LAB 10:24
PROVIDERS: PCP Family Medicine; Referring Provider Physician Assistant Medical; Visit Provider Physician Assistant Medical
DX: E78.00 Pure hypercholesterolemia, unspecified (principal)
CPT/HCPCS: 36415; 80061; 80076

== ENCOUNTER → 2025-02-17 | Outpatient (CLI) | payer MEDICARE, OTHER, SELFPAY ==
--- NOTE | 2025-02-17 16:44 | RAD_ITS ---
PROCEDURE: KNEE 4 OR MORE VIEWS 02/17/2025 REASON FOR EXAM: PAIN IN RIGHT KNEE TECHNIQUE: KNEE 4 OR MORE VIEWS COMPARISON: No FINDINGS: Tiny osteophytes. No significant osteoarthritis. No acute bone or soft tissue pathology. RAD/Knee 4 or More Views IMPRESSION: Near normal examination Reading Location: [place] [id number]
== END | disposition home or self-care (01) ==
LOC: RAD 16:36
PROVIDERS: PCP Family Medicine; Referring Provider Family Medicine; Visit Provider Family Medicine
DX: M25.561 Pain in right knee (principal)
CPT/HCPCS: 73564

== ENCOUNTER → 2025-06-16 | Outpatient (CLI) | payer MEDICARE, OTHER, SELFPAY ==
[2025-06-16 15:51] LABS: PSA,Total- Diagnostic < 0.02 ng/mL (0.00-4.00)
--- OUTSIDE RECORDS SUMMARY | 2025-06-16 18:18 | XMS RPT_ITS | CCD ---
Author Organization [facility] Care Team Providers Care Dogger Name Role Phone LESLEY Nur, Blanca Marrero Unavailable Unavailable DeFinis, Harumi Y Unavailable Unavailable Boom, RN, Blanca M Unavailable Unavailable Boom, RN, Blanca M Unavailable Unavailable Boom RN, Blanca M Unavailable Unavailable Abdi Reyna MD Unavailable DeFinis, Harumi Y Unavailable Unavailable LESLEY Nur, Blanca M Unavailable Unavailable Inocenciais, Harumi Y Unavailable Unavailable Dr. 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 Primary Care Provider [phone] Dr. 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 Referring Provider Nuris Nur Attending Provider Unavailable Dr. 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 Primary Care Provider [phone] Dr. 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 Referring Provider Roof POT OPERATOR, POT OPERATOR-C Tres Grimes Attending Provider Dr. 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 Primary Care Provider [phone] Dr. 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 Referring Provider Nuris Nur Attending Provider Unavailable Roof POT OPERATOR, POT OPERATOR-C Tres Grimes Attending Provider Dr. 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 DO Primary Care Provider Terri Moore Attending Provider [phone] Terri Moore Referring Provider [phone] Dr. 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 DO Referring Provider Nuris Nur Attending Provider Unavailable Roof POT OPERATOR-C, Tres Grimes Attending Provider [phone] Dr. Vin Doe MD Attending Provider [phone] Dr. Vin Doe MD Referring Provider Dr. 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 DO Referring Provider [phone] 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 DO Attending Provider [phone] Roof POT OPERATOR, Tres Grimes Attending Unavailable Gasper, Jackson Referring Unavailable Gasper, Jackson Primary Care Unavailable Gasper, Jackson Attending Unavailable Gasper, Jackson Referring Unavailable Gasepr, Jackson Primary Care Unavailable Darin, Corona Elmore Attending Unavailable Darin, Harvey Referring Unavailable Gasper, Jackson Primary Care Unavailable Gasper, Jackson Primary Care Unavailable Roof POT OPERATOR, Tres H Attending Unavailable Roof POT OPERATOR, Tres H Referring Unavailable Gasper, Jackson Primary Care Unavailable Gasper, Jackson Attending Unavailable Gasper, Jackson Referring Unavailable Gasper, Jackson Primary Care Unavailable Lowe PA, Terri M Attending Unavail able Lowe PA, Terri M Referring Unavail able Darin, Corona Elmore Attending Unavailable Gasper, Jackson Primary Care Unavailable Nader, Hodge Attending Unavailable Gasper, Jackson Primary Care Unavailable Gasper, Jackson Primary Care Unavailable Roof POT OPERATOR, Tres Grimes Attending Unavailable Gasper, Jackson Referring Unavailable Nader, Hodge Attending Unavailable Nader, Hodge Referring Unavailable Gasper, Jackson Primary Care Unavailable Gasper, Jackson Primary Care Unavailable Nader, Hodge Attending Unavailable Gasper, Jackson Primary Care Unavailable Nader, Hodge Referring Unavailable Nader, Hodge Attending Unavailable Allergies Allergy Classification Reported Allergen(s) Allergy Type Date of Onset Reaction(s) Facility (9 sources) Adhesive Tape; Translations: [ADHESIVE BANDAGES] allergy to substance 01-11-20 11 welts [place] [facility] Work Phone: (9 sources) amoxicillin / clavulanate drug allergy 03-14-20 12 hives all over (was taking bactrim DS Two tablets by mouth twice daily at the same time) [facility] behaview Work Phone: (9 sources) sulfamethoxazole / trimethoprim drug allergy 03-14-20 12 taking bactrim DS Two tablets by mouth twice daily, had severe hives all over. He was taking augementin 875 One tablet by mouth twice daily at the same time for MRSA infection per Dr. Mantilla, patient had no previous PCN allergy. [facility] Work Phone: (11 sources) Adhesive agent; Translations: [adhesive] Allergy to substance 04-28-20 [facility] (11 sources) Amoxicillin; Translations: [amoxicillin trihydrate] Drug Allergy 04-28-20 [facility] (10 sources) Sulfamethoxazole Drug Allergy 04-28-20 [facility] (10 sources) Trimethoprim Drug Allergy 04-28-20 [facility] (11 sources) potassium clavulanate; Translations: [potassium clavulanate] Allergy to substance 04-28-20 [facility] (1 source) Sulfamethoxazole Drug Allergy 01-16-20 [facility] (1 source) Trimethoprim Drug Allergy 01-16-20 [facility] Medications Current Medications Medication Drug Class(es) Dates Sig (Normalized) Sig (Original) aspirin 81 mg delayed release oral tablet (20 sources) Nonsteroidal Anti-inflammatory Drug Start: 07-17-2024 take 1 tablet by mouth once daily Aspirin (Adult Aspirin Regimen) 81 mg tablet,delayed release (DR/EC) Active 81 mg PO daily July 17, 2024 1:00am Start: 01-10-2011 End: 01-23-2024 take 1 tablet by mouth at bedtime Aspirin 325 MG tablet Discontinued 325 mg PO AT BEDTIME July 18, 2013 1:00am January 23, 2024 10:23am 24 hr dilTIAZem hydrochloride 360 mg extended release oral capsule (20 sources) Calcium Channel Mona Start: 08-28-2024 End: 10-18-2024 take 1 capsule by mouth once daily Diltiazem Hcl 360 mg capsule,extended release 24hr Active 360 mg PO DAILY 90 October 18, 2024 10:06am Start: 11-29-2022 End: 08-28-2024 take 1 capsule by mouth once daily Diltiazem Hcl 180 mg capsule,extended release 24hr Discontinued 360 mg PO DAILY 180 October 13, 2023 12:43pm August 28, 2024 2:40pm Start: 11-29-2022 take 360 mg by mouth once daily Diltiazem Hcl Active 360 MG PO DAILY 180 November 29, 2022 10:27am Start: 10-14-2022 End: 11-29-2022 take 1 capsule by mouth twice daily Diltiazem Hcl 180 mg capsule,extended release 24hr Discontinued 180 mg PO TWICE A DAY 180 3 October 14, 2022 1:00am November 29, 2022 11:28am med changed due to cost Start: 10-13-2022 End: 10-14-2022 take 1 capsule by mouth once daily Diltiazem Hcl 360 mg capsule,extended release 24hr Discontinued 360 mg PO DAILY 90 3 October 13, 2022 1:00am October 14, 2022 4:48pm folic acid 0.8 mg oral tablet (17 sources) Start: 07-18-2013 take 1 tablet by mouth once daily Folic Acid 0.8 MG tablet Active 0.8 mg PO DAILY@0800 July 18, 2013 1:00am Start: 01-10-2011 take 1 tablet by kinjal th once daily B-6 FOLIC ACID CAPS One tablet by mouth daily COBALAMIN COMBINATIONS CAPS [id number] Lacie Luque Start: 01-10-2011 take 1 tablet by kinjal th once daily B-6 FOLIC ACID CAPS One tablet by mouth daily COBALAMIN COMBINATIONS CAPS [id number] Lacie Luque LORazepam 2 mg oral tablet (20 sources) Benzodiazepine Start: 11-29-2022 take 1 tablet by mouth at bedtime Lorazepam 2 mg tablet Active 2 mg PO AT BEDTIME November 29, 2022 12:00am Start: 08-08-2013 End: 11-29-2022 take 1 tablet by mouth at bedtime Lorazepam 1 MG tablet Discontinued 1 mg PO AT BEDTIME May 14, 2014 12:00am November 29, 2022 11:04am Start: 01-31-2013 take 1 tablet by kinjal th once daily as needed LORAZEPAM 0.5 MG TABS One tablet by mouth daily every night as needed insomnia LORAZEPAM [id number] Tony Blandon MD metoprolol tartrate 25 mg oral tablet (20 sources) beta-Adrenergic Mona Start: 01-15-2025 take 1 tablet by mouth twice daily Metoprolol Tartrate 25 mg tablet Active 25 mg PO TWICE A DAY 180 January 15, 2025 11:39am Start: 01-10-2011 End: 01-15-2025 take 1 tablet by mouth twice daily Metoprolol Tartrate 50 mg tablet Discontinued 50 mg PO TWICE A DAY 180 3 June 14, 2023 9:03am January 23, 2024 10:09am Completed/Discontinued Medications Medication Drug Class(es) Dates Sig (Normalized) Sig (Original) azithromycin 250 mg oral tablet (18 sources) Macrolide Antimicrobial Start: 09-24-2014 End: 12-05-2014 take 2 tablets by mouth once daily, then take 1 tablet by mouth once daily, then take 2-5 tablets by mouth AZITHROMYCIN 250 MG TABS two tablets by mouth on day one, and one tablets daily one day 2-5 AZITHROMYCIN [id number] Tony Blandon MD benzonatate 100 mg oral capsule (10 sources) Non-narcotic Antitussive Start: 05-14-2017 End: 07-11-2017 take 2 capsules by mouth three times daily as needed for cough Benzonatate 100 MG capsule Discontinued 200 mg PO 3 TIMES DAILY NEEDED as needed for Cough May 14, 2017 12:00am July 11, 2017 7:18pm Start: 05-14-2017 End: 07-11-2017 take 200 mg by mouth three times daily as needed Benzonatate Discontinued 200 MG PO 3 TIMES DAILY NEEDED May 13, 2017 11:00pm July 11, 2017 6:18pm betaine hydrochloride 25 mg / folic acid 5 mg / mecobalamin 1 mg / pyridoxine 100 mg oral capsule (2 sources) Methylating Agent Start: 01-10-2011 take 1 tablet by mouth once daily B-6 FOLIC ACID CAPS One tablet by mouth daily COBALAMIN COMBINATIONS CAPS [id number] Lacie Luque citalopram 40 mg oral tablet (20 sources) Serotonin Reuptake Inhibitor Start: 01-10-2011 End: 08-22-2019 take 1 tablet by mouth at bedtime Citalopram 40 MG tablet Discontinued 40 mg PO AT BEDTIME July 18, 2013 1:00am August 22, 2019 4:50pm clonazePAM 2 mg oral tablet (20 sources) Benzodiazepine Start: 01-10-2011 End: 12-27-2012 take 1 tablet by mouth once daily at bedtime CLONAZEPAM 2 MG TABS One tablet by mouth daily at bedtime CLONAZEPAM [id number] Tony Blandon MD codeine / guaiFENesin (14 sources) Opioid Agonist Start: 09-24-2014 End: 12-05-2014 take 5 mL by mouth every four to six hours as needed for cough CHERATUSSIN AC 100-10 MG/5ML SOLN 5ml by mouth every 4-6 hr as needed cough, avoid driving or operating machine under the influence of medication. GUAIFENESIN-CODEI NE [id number] Abdi Reyna MD Start: 09-24-2014 take 5 mL by mouth e very four to six hours as needed for cough CHERATUSSIN AC 100-10 MG/5ML SOLN 5ml by mouth every 4-6 hr as needed cough, avoid driving or operating machine under the influence of medication. GUAIFENESIN-CODEINE [id number] Tony Blandon MD Start: 09-24-2014 take 5 mL by mouth e very four to six hours as needed for cough CHERATUSSIN AC 100-10 MG/5ML SOLN 5ml by mouth every 4-6 hr as needed cough, avoid driving or operating machine under the influence of medication. GUAIFENESIN-CODEINE [id number] Tony Blandon MD Start: 09-24-2014 End: 12-05-2014 take 5 mL by mouth every four to six hours as needed for cough CHERATUSSIN AC 100-10 MG/5ML SOLN 5ml by mouth every 4-6 hr as needed cough, avoid driving or operating machine under the influence of medication. GUAIFENESIN-CODEINE [id number] Abdi Reyna MD doxycycline hyclate 100 mg oral tablet (18 sources) Tetracycline-class Drug Start: 02-20-2012 End: 02-29-2012 take 1 tablet by mouth twice daily DOXYCYCLINE HYCLATE 100 MG TABS One tablet by mouth twice daily DOXYCYCLINE HYCLATE [id number] Suki Mantilla MD dutasteride 0.5 mg oral capsule (18 sources) 5-alpha Reductase Inhibitor Start: 08-08-2013 End: 12-05-2014 take 1 tablet by mouth once daily AVODART 0.5 MG CAPS One tablet by mouth daily DUTASTERIDE [id number] Abdi Reyna MD enalapril maleate 20 mg oral tablet (20 sources) Angiotensin Converting Enzyme Inhibitor Start: 01-10-2011 End: 01-24-2025 take 1 tablet by mouth at bedtime Enalapril Maleate 20 mg tablet Discontinued 20 mg PO AT BEDTIME 90 3 January 24, 2025 10:33am January 24, 2025 11:22am erythromycin 0.005 mg/mg ophthalmic ointment (18 sources) Macrolide, Macrolide Antimicrobial Start: 06-15-2011 End: 09-16-2011 ERYTHROMYCIN 5 MG/GM OINT apply to affected eye three times daily ERYTHROMYCIN [id number] Tony Blandon MD fish oil (20 sources) Start: 01-10-2011 End: 06-12-2015 take 1 tablet by mouth once daily FISH OIL 1200 MG CAPS One tablet by mouth daily OMEGA-3 FATTY ACIDS [id number] Abdi Reyna MD Start: 01-10-2011 take 1 tablet by kinjal th twice daily FISH OIL 1200 MG CAPS One tablet by mouth twice daily OMEGA-3 FATTY ACIDS [id number] Lacie Luque Start: 01-10-2011 take 1 tablet by kinjal th once daily FISH OIL 1200 MG CAPS One tablet by mouth daily OMEGA-3 FATTY ACIDS [id number] Abdi Reyna MD Start: 01-10-2011 End: 06-12-2015 take 1 tablet by mouth once daily FISH OIL 1200 MG CAPS One tablet by mouth daily OMEGA-3 FATTY ACIDS [id number] Abdi Reyna MD Start: 01-10-2011 take 1 tablet by kinjal th once daily FISH OIL 1200 MG CAPS One tablet by mouth daily OMEGA-3 FATTY ACIDS [id number] Abdi Reyna MD Start: 01-10-2011 take 1 tablet by kinjal th twice daily FISH OIL 1200 MG CAPS One tablet by mouth twice daily OMEGA-3 FATTY ACIDS [id number] Lacie Luque GUAIFENESIN-CODEINE (4 sources) Start: 09-24-2014 End: 12-05-2014 take 5 mL by mouth every four to six hours as needed for cough CHERATUSSIN AC 100-10 MG/5ML SOLN 5ml by mouth every 4-6 hr as needed cough, avoid driving or operating machine under the influence of medication. GUAIFENESIN-CODEINE [id number] Abdi Reyna MD Start: 09-24-2014 take 5 mL by mouth e very four to six hours as needed for cough CHERATUSSIN AC 100-10 MG/5ML SOLN 5ml by mouth every 4-6 hr as needed cough, avoid driving or operating machine under the influence of medication. GUAIFENESIN-CODEINE [id number] Tony Blandon MD levoFLOXacin 750 mg oral tablet (10 sources) Quinolone Antimicrobial Start: 05-14-2017 End: 07-11-2017 take 1 tablet by mouth once daily Levofloxacin 750 MG tablet Discontinued 750 mg PO DAILY May 14, 2017 12:00am July 11, 2017 7:18pm MULTIPLE VITAMINS-MINERALS (6 sources) Start: 01-10-2011 take 1 tablet by mouth once daily CENTRUM SILVER TABS One tablet by mouth daily MULTIPLE VITAMINS-MINERALS [id number] Lacie Luque MULTIPLE VITAMINS-MINERALS (1 source) Start: 01-10-2011 take 1 tablet by mouth once daily CENTRUM SILVER TABS One tablet by mouth daily MULTIPLE VITAMINS-MINERALS [id number] Lacie Luque MULTIPLE VITAMINS-MINERALS (2 sources) Start: 01-10-2011 take 1 tablet by mouth once daily CENTRUM SILVER TABS One tablet by mouth daily MULTIPLE VITAMINS-MINERALS [id number] Lacie Luque Fdhfbijl-Uns-Pc-Lyc open-Lutein (5 sources) Start: 05-14-2014 End: 07-11-2017 Fbimetqi-Gpf-Cw-Ly copen-Lutein Discontinued 1 EACH PO DAILY May 14, 2014 12:00am July 11, 2017 7:17pm Start: 05-14-2014 End: 07-11-2017 Tchclbzt-Bvu-Jr-Lycopen-Lute in Discontinued 1 EACH PO DAILY May 13, 2014 11:00pm July 11, 2017 6:17pm Xtfdnrxd-Kyc-Ed-Lycopen-Lute in (Centrum Silver Men) 300-600-300 mcg tablet (2 sources) Start: 07-12-2017 End: 04-28-2022 take 300-600 tablets by mouth once daily Alqdbknv-Qdh-Xq-Lycopen-Lutein (Centrum Silver Men) 300-600-300 mcg tablet Discontinued 1 TABLET PO DAILY July 12, 2017 1:00am April 28, 2022 4:13pm Start: 07-12-2017 End: 04-28-2022 take 300-600 tablets by mouth once daily Gnbbxwfe-Msh-Nd-Lycopen-Lutein (Centrum Silver Men) 300-600-300 mcg tablet Discontinued 1 TABLET PO DAILY July 12, 2017 12:00am April 28, 2022 3:13pm Wnklaskj-Lml-Tc-Lycopen-Lute in 1 EACH tablet (5 sources) Start: 05-14-2014 End: 07-11-2017 Vseoqozp-Gfk-Pw-Lycopen-Lute in 1 EACH tablet Discontinued 1 NMA PO DAILY May 14, 2014 12:00am July 11, 2017 7:17pm Mx-Sax-Dumyc-P3-Goniudl-Chyf in (Centrum Silver Men) 300-600-300 mcg tablet (8 sources) Start: 07-12-2017 End: 04-28-2022 Ez-Vaj-Nxcvj-V0-Voydqtd-Wutg in (Centrum Silver Men) 300-600-300 mcg tablet Discontinued 1 {tbl} PO DAILY 0 July 12, 2017 1:00am April 28, 2022 4:13pm Start: 07-12-2017 End: 04-28-2022 Vs-Dne-Oyfvp-U5-Yipbpbu-Yyty in (Centrum Silver Men) 300-600-300 mcg tablet Discontinued 1 {tbl} PO DAILY July 12, 2017 1:00am April 28, 2022 4:13pm Start: 07-12-2017 End: 04-28-2022 take 300-600 tablets by mouth once daily Qf-Mfn-Gvcgi-X6-Frioxrs-Avoqee (Centrum Silver Men) 300-600-300 mcg tablet Discontinued 1 TABLET PO DAILY July 12, 2017 12:00am April 28, 2022 3:13pm Start: 07-12-2017 End: 04-28-2022 take 300-600 tablets by mouth once daily Kr-Ygj-Sftme-I4-Irwttye-Ylxycc (Centrum Silver Men) 300-600-300 mcg tablet Discontinued 1 TABLET PO DAILY July 12, 2017 1:00am April 28, 2022 4:13pm nitroglycerin 0.4 mg sublingual tablet (20 sources) Nitrate Vasodilator Start: 05-14-2014 End: 01-15-2025 Nitroglycerin 0.4 mg tablet, sublingual Discontinued 0.4 mg SL Q5M as needed for Chest Pain 29 10December 24, 2020 8:08am January 15, 2025 11:39am Start: 05-14-2014 End: 12-24-2020 Nitroglycerin Discontinued 0 .4 MG SL Q5M June 28, 2019 1:42pm December 24, 2020 7:09am Start: 11-25-2011 NITROSTAT 0.4 MG SUBL 1 tablet under tongue every 5 min up to 3 X NITROGLYCERIN [id number] Abdi Reyna MD Start: 01-10-2011 take 1 tablet by kinjal th every hour as needed NITROGLYCERIN 0.4 MG/HR PT24 one tablet by mouth as needed NITROGLYCERIN [id number] Lacie Luque OMEGA-3 FATTY ACIDS (2 sources) Start: 01-10-2011 take 1 tablet by mouth twice daily FISH OIL 1200 MG CAPS One tablet by mouth twice daily OMEGA-3 FATTY ACIDS [id number] Lacie Luque OMEGA-3 FATTY ACIDS (4 sources) Start: 01-10-2011 End: 06-12-2015 take 1 tablet by mouth once daily FISH OIL 1200 MG CAPS One tablet by mouth daily OMEGA-3 FATTY ACIDS [id number] Abdi Reyna MD Start: 01-10-2011 take 1 tablet by kinjal th once daily FISH OIL 1200 MG CAPS One tablet by mouth daily OMEGA-3 FATTY ACIDS [id number] Abdi Reyna MD pravastatin sodium 40 mg oral tablet (20 sources) HMG-CoA Reductase Inhibitor Start: 07-05-2018 End: 07-17-2024 take 1 tablet by mouth once daily Pravastatin 40 mg tablet Discontinued 0 .ROUTE .COMPLEX 90 June 09, 2023 10:39am January 23, 2024 10:09am TAKE ONE TABLET BY MOUTH EVERY DAY Start: 07-18-2013 End: 07-05-2018 take 2 tablets by mouth at bedtime Pravastatin 20 MG tablet Discontinued 40 mg PO AT BEDTIME July 18, 2013 1:00am July 05, 2018 6:53pm Start: 07-18-2013 End: 07-05-2018 take 40 mg by mouth at bedtime Pravastatin Discontinue d 40 MG PO AT BEDTIME July 18, 2013 12:00am July 05, 2018 5:53pm Start: 06-05-2012 take 1 tablet by kinjal th at bedtime PRAVASTATIN SODIUM 40 MG TABS One tablet by mouth at bedtime. PRAVASTATIN SODIUM [id number] Abdi Reyna MD Start: 11-25-2011 take 1 tablet by kinjal th once daily at bedtime PRAVASTATIN SODIUM 20 MG TABS One tablet by mouth daily at bedtime PRAVASTATIN SODIUM [id number] Abdi Reyna MD simvastatin 20 mg oral tablet (9 sources) HMG-CoA Reductase Inhibitor Start: 01-10-2011 take 1 tablet by mouth once daily SIMVASTATIN 20 MG TABS One tablet by mouth daily SIMVASTATIN [id number] Lacie Luque tamsulosin hydrochloride 0.4 mg oral capsule (18 sources) alpha-Adrenergic Mona Start: 08-08-2013 End: 12-05-2014 take 2 tablets by mouth once daily FLOMAX 0.4 MG CAPS Two tablets by mouth daily TAMSULOSIN HCL [id number] Abdi Reyna MD 24 hr verapamil hydrochloride 360 mg extended release oral capsule (20 sources) Calcium Channel Mona Start: 07-05-2018 End: 10-13-2022 take 1 capsule by mouth once daily Verapamil 360 mg capsule,ext rel. pellets 24 hr Discontinued 360 mg PO DAILY July 04, 2022 9:31am October 13, 2022 10:46am Start: 07-18-2013 End: 07-05-2018 Verapamil 240 mg tablet exte nded release Discontinued 360 mg PO DAILY July 05, 2018 6:55pm July 05, 2018 6:56pm Start: 07-18-2013 End: 07-05-2018 take 360 mg by mouth once daily Verapamil Discontinued 360 MG PO DAILY July 05, 2018 5:55pm July 05, 2018 5:56pm Start: 01-10-2011 take 1 tablet by kinjal th once daily VERAPAMIL HCL ER 360 MG [id number] One tablet by mouth daily VERAPAMIL HCL [id number] Abdi Reyna MD Problems Active Problems Problem Classification Problem Date Documented Date Episodic/Chronic Acute myocardial infarction (19 sources) Subsequent ST elevation (STEMI) myocardial infarction of inferior wall; Translations: [Subsequent ST segment elevation myocardial infarction of inferior wall] Onset: 04-04-2011 04-04-2011 Chronic Anxiety disorders (15 sources) Posttraumatic stress disorder; Translations: [Mixed anxiety and depressive disorder] Resolved: 12-18-2014 01-10-2011 Chronic Cancer of prostate (2 sources) Malignant neoplasm of prostate; Translations: [Malignant neoplasm of prostate] Onset: 07-17-2024 Chronic Cardiac dysrhythmias (20 sources) Ventricular tachycardia; Translations: [Multiple premature ventricular complexes] Onset: 04-04-2011 04-04-2011 Chronic Cardiac dysrhythmias (19 sources) Palpitations; Translations: [Palpitations] Onset: 04-04-2011 04-04-2011 Episodic Conduction disorders (20 sources) Automatic implantable cardiac defibrillator in situ; Translations: [Presence of automatic (implantable) cardiac defibrillator] Onset: 01-31-2025 Chronic Coronary atherosclerosis and other heart disease (20 sources) Atherosclerotic heart disease 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 pectoris; Translations: [Coronary atherosclerosis] Onset: 01-10-2011 06-28-2016 Chronic Comment on above: PTCA/stent of the RC A 12/2001; Disorders of lipid metabolism (20 sources) Hyperlipidemia; Translations: [Hyperlipidemia, unspecified] Onset: 04-04-2011 04-04-2011 Chronic Essential hypertension (20 sources) Benign essential hypertension; Translations: [Hypertensive disorder] Onset: 01-10-2011 Resolved: 12-18-2014 01-10-2011 Chronic Hyperplasia of prostate (9 sources) Benign prostatic hypertrophy with outflow obstruction; Translations: [Benign prostatic hyperplasia with lower urinary tract symptoms] 08-08-2013 Chronic Malaise and fatigue (10 sources) Fatigue; Translations: [Other fatigue] 11-29-2022 Episodic Mood disorders (12 sources) Mixed anxiety and depressive disorder; Translations: [Other specified anxiety disorders] Resolved: 12-18-2014 01-10-2011 Chronic Other non-traumatic joint disorders (1 source) Pain in right knee; Translations: [Pain in right knee] Onset: 02-21-2025 Episodic Unclassified (7 sources) Implantation of automatic cardiac defibrillator ; Translations: [Presence of automatic (implantable) cardiac defibrillator] Onset: 04-04-2011 04-04-2011 Unclassified (3 sources) Long-term drug therapy; 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] Onset: 04-04-2011 04-04-2011 Viral infection (10 sources) Viral disease; Translations: [Viral infection, unspecified] 11-04-2014 Episodic Past or Other Problems Problem Classification Problem Date Documented Da te Episodic/Chronic Cancer of prostate (9 sources) History of malignant neoplasm of prostate; Translations: [Personal history of malignant neoplasm of prostate] Onset: 12-18-2014 12-18-2014 Episodic Conditions associated with dizziness or vertigo (18 sources) Dizziness; Translations: [Dizziness and giddiness] Onset: 01-31-2013 Resolved: 12-18-2014 12-18-2014 Episodic Coronary atherosclerosis and other heart disease (13 sources) Coronary angioplasty status; Translations: [History of myocardial infarction] Onset: 08-07-2001 04-04-2011 Episodic Genitourinary symptoms and ill-defined conditions (1 source) Other microscopic hematuria; Translations: [Other microscopic hematuria] Onset: 08-15-2024 Episodic Inflammation, infection of eye (18 sources) Acute conjunctivitis; Translations: [Unspecified acute conjunctivitis, unspecified eye] Onset: 06-15-2011 Resolved: 09-16-2011 09-16-2011 Episodic Neoplasms of unspecified nature or uncertain behavior (20 sources) Neoplasm of unspecified behavior of bone, soft tissue, and skin; Translations: [Neoplasm of uncertain behavior of skin] Onset: 01-31-2013 02-15-2013 Episodic Other aftercare (6 sources) Other senior living (current) drug therapy; Translations: [Other senior living (current) drug therapy] Onset: 04-04-2011 04-04-2011 Episodic Other circulatory disease (20 sources) Abnormal result of cardiovascular function study, unspecified; Translations: [History of myocardial infarction] Onset: 04-04-2011 Resolved: 07-22-2015 04-04-2011 Episodic Other gastrointestinal disorders (18 sources) Groin mass; Translations: [Other intra-abdominal and pelvic swelling, mass and lump] Onset: 01-16-2012 Resolved: 12-18-2014 01-16-2012 Episodic Other non-epithelial cancer of skin (9 sources) Personal history of other malignant neoplasm of skin; Translations: [Personal history of other malignant neoplasm of skin] Onset: 02-12-2013 02-15-2013 Episodic Other nutritional; endocrine; and metabolic disorders (9 sources) Body mass index (BMI) 28.0-28.9, adult; Translations: [Body mass index (BMI) 28.0-28.9, adult] Onset: 06-07-2013 06-07-2013 Episodic Other skin disorders (16 sources) Actinic keratosis; Translations: [Senile hyperkeratosis] Onset: 11-08-2013 11-08-2013 Episodic Other skin disorders (2 sources) Senile hyperkeratosis; Translations: [Other seborrheic keratosis] Onset: 07-22-2015 07-22-2015 Episodic Other upper respiratory disease (18 sources) Hoarse; Translations: [Dysphonia] Resolved: 12-18-2014 08-08-2013 Episodic Other upper respiratory infections (18 sources) Acute sinusitis; Translations: [Acute sinusitis, unspecified] Onset: 09-24-2014 Resolved: 12-18-2014 12-18-2014 Episodic Residual codes; unclassified (19 sources) History of radiofrequency ablation operation for arrhythmia; Translations: [Other specified postprocedural states] Onset: 08-07-2001 02-08-2019 Episodic Residual codes; unclassified (8 sources) Other specified postprocedural states; Translations: [Personal history of surgery to heart and great vessels, presenting hazards to health] Onset: 08-07-2001 Episodic Skin and subcutaneous tissue infections (20 sources) Cellulitis; Translations: [Abscess] Onset: 02-19-2012 Resolved: 08-08-2013 08-08-2013 Episodic Unclassified (9 sources) Insomnia; Translations: [Insomnia, unspecified] Onset: 01-31-2013 01-31-2013 Episodic Unclassified (7 sources) Adult health examination ; Translations: [Encounter for general adult medical examination without abnormal findings] Onset: 07-22-2015 Resolved: 07-25-2015 07-22-2015 Unclassified (14 sources) Screening for malignant neoplasm of colon ; Translations: [Encounter for screening for malignant neoplasm of colon] Onset: 09-25-2014 Resolved: 07-22-2015 07-22-2015 Unclassified (14 sources) Preoperative cardiovascular examination ; Translations: [Encounter for preprocedural cardiovascular examination] Onset: 05-07-2014 Resolved: 07-22-2015 07-22-2015 Results Test Name Value Interpretation Reference Range Facility Knee 4 or More Viewson 02-17 Knee 4 or More Views [facility] Imaging Services [address] [place] [address] Knee 4 or More Views MR#: [id number] Acct: [id number] Name: CASS LANDONN MATT Rep #: [id number] : 1955 M 69 From: Iain Byrne MD PCP: Dr. 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 DO Status: REG CLI Study: Knee 4 or More Views Date of Exam: 02/17/25 Exam# [id number] Ordering Dr: 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 DO PROCEDURE: KNEE 4 OR MORE VIEWS 02/17/2025 REASON FOR EXAM: PAIN IN RIGHT KNEE TECHNIQUE: KNEE 4 OR MORE VIEWS COMPARISON: No FINDINGS: Tiny osteophytes. No significant osteoarthritis. No acute bone or soft tissue pathology. RAD/Knee 4 or More Views IMPRESSION: Near normal examination Reading Location: [place] [address] CC: Dr. 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 [place] [address] OFFICE VISIT Date of Service: 01/15/25 MR#: [id number] Acct: [id number] Name: CASS LANDONN MATT Rep #: [id number] : 1955 Provider: OWEN vegas Age/Sex: 69/M Location: [facility] [place] Status: Signed HPI HPI History of Present Illness Details: This is a 69-year-old white male who presents today for outpatient cardiovascular follow-up of his history of CAD, non-ST segment elevation IN, status post RCA PCI-remote, cardiomyopathy, VT, status post EPS/RFA, status post ICD placement, and hyperlipidemia. He denies chest, arm, jaw, or neck discomfort. He states occasional palpitations. He denies bilateral lower extremity edema. He denies claudication. He denies shortness of breath with activity, shortness of breath at rest, orthopnea, or PND. He denies chronic cough. He denies significant, sudden weight gain. He states lightheadedness. He denies dizziness, near syncope, or syncope. He denies blood in urine, blood in stool, or epistaxis. He denies fever with chills. He denies myalgia. He denies fatigue. His exercise level has remained stable. He had his defibrillator interrogated today. Intake Vital Signs 07/17/24 11:47 01/15/25 11:01 Height 6 ft 6 ft Weight: 195 lb 192 lb BMI 26.4 26.0 BP 107/62 135/73 H Blood Pressure Location Lt brachial Lt brachial Position Sitting Sitting Respiration 16 16 Pulse 56 L 73 Pulse Source NIBP NIBP Intake Visit Reasons: 6 M FU/ Sees Blanca @ 11 Visual Journalist Required: No Is patient in pain?: No Allergies adhesive Allergy (Verified 01/15/25 11:14) Rash amoxicillin trihydrate (From Augmentin) Allergy (Verified 01/15/25 11:14) Hives potassium clavulanate (From Augmentin) Allergy (Verified 01/15/25 11:14) Hives sulfamethoxazole (From Bactrim) Allergy (Verified 01/15/25 11:14) Hives trimethoprim (From Bactrim) Allergy (Verified 01/15/25 11:14) Hives Medications ???Medication ???Instructions ???Recorded ???Confirmed ???Type folic acid 800 mcg tablet 0.8 mg PO DAILY@0800 07/18/1301/05 History citalopram 40 mg tablet 40 mg PO DAILY 08/22/19 01/15/25 H istory lorazepam 2 mg tablet 2 mg PO QHS 11/29/22 01/15/25 Hist ory enalapril maleate 20 mg tablet 20 mg PO QHS #90 tabs 01/23/2407/01 Rx aspirin 81 mg tablet,delayed 81 mg PO QDAY 12/11/24 06/11/25 Hi story release (Adult Aspirin Regimen) pravastatin 40 mg tablet 40 mg PO QDAY #90 tabs 07/17/24 Rx diltiazem HCl 360 mg 360 mg PO DAILY #90 caps 10/18/24 01/15/25 Rx capsule,extended release 24 hr metoprolol tartrate 25 mg tablet 25 mg PO BID #180 tabs 01/15/25 Rx nitroglycerin 0.4 mg sublingual 0.4 mg sublingual Q5M PRN Chest 01/15/25 Rx tablet Pain #25 tabs Ejection fraction %: 55 Have you fallen in the past year?: Yes Nurse's Note: Needs new Rx for nitroglycerin. PFSH Medical History Premature ventricular contraction Essential hypertension Hyperlipidemia Subsequent ST elevation (STEMI) myocardial infarction of inferior wall Old myocardial infarction Atherosclerotic heart disease 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 pectoris Ventricular tachycardia Palpitations Prostate cancer Surgical History Presence of coronary angioplasty implant and graft History of hernia repair History of basal cell carcinoma excision History of prostatectomy History of tonsillectomy H/O cardiac radiofrequency ablation ( 04/2002) History of coronary artery stent placement ( 12/2001) Presence of automatic (implantable) cardiac defibrillator Social History Smoking Status: Former smoker Electronic Cigarette Use: not used second hand exposure: No alcohol intake: current alcohol intake frequency: holidays/special occasions only Alcohol type: hard liquor substance use type: does not use what type of physical activity do you participate in: other details: [employer] arts frequency: 3-4 times per week duration: > 90 minutes/day seatbelt use: always do you feel safe at home: Yes ROS Const Const: Negative for fatigue or weakness Eyes Eyes: Negative for change in vision ENT ENT: Negative for dizziness or balance problems Cardio Chest Pain: No Palpitations: Yes (Occasionally-uncha nged from previous) feels like its: fast Edema: None Muscle aches with walking: None Resp Respiratory: Negative for SOB with activity, SOB at rest or SOB orthopnea SOB lying down GI GI: Negative nausea or heartburn : Negative for hematuria or frequent nighttime urination/ nocturia Musc Musc: Negative for balance problems (more content not included)... [facility] Pacemaker Checkon 01-15-2025 Pacemaker Check [facility] [address] [place] [address] Pacemaker Check Date of Service: 01/15/25 1458 MR#: [id number] Acct: [id number] Name: OLESYA LANDON Rep #: [id number] : 1955 From: Nuris Nur Age/Sex: 69/M Location: [facility] – [place] Status: Signed Billing Codes ICD Device Billin ICD Dev Prog Eval, Single Assessment and Plan Assessment and Plan (1) H/O cardiac radiofrequency ablation: Status: Chronic (2) Presence of automatic (implantable) cardiac defibrillator: Status: Chronic (3) Ventricular tachycardia: Status: Chronic 01/15/25 1502 Date Nuris Hatfieldignkorey Signature: Date (if applicable) CC: Normal [facility] Bilirubin directOrdered By: Terri Lowe on 01-13-2025 Bilirubin.direct [Mass/Vol] 0.13 mg/dL 0.00-0.30 [facility] Comment on above: Hemolysis present, R esults could be affected. Bilirubin, totalOrdered By: Terri Lowe on 01-13-2025 Bilirubin [Mass/Vol] 0.36 mg/dL 0.00-1.30 [facility] Calculated very low density lipoprotein (VLDL) cholesterol measurementOrdered By: Terri Lowe on 01-13-2025 Calculated very low density lipoprotein (VLDL) cholesterol measurement 13 mg/dL 5-40 [facility] LDL calc ser/plasOrdered By: Terri Lowe on 01-13-2025 Cholesterol in LDL [Mass/Vol] 88 mg/dL [facility] Comment on above: Kfffcdqdud=052-069 m g/dL & Higher Knrw=863 mg/dL or greater Laboratory - Chemistry and C hemistry - challengeOrdered By: Terri Lowe on 01-13-2025 AST [Catalytic activity/Vol] 37 U/L <38 [facility] Comment on above: Hemolysis present, R esults could be affected. Lipid Profileon 01-13-2025 CHOL:HDL 3.23 Normal [facility] Comment on above: Performed By: #### L 500.3400, L500.4100 #### [facility] [address] [place], [address] Cholesterol [Mass/Vol] 146 mg/dL Normal <=200 [facility] Comment on above: Result Comment: Chol esterol level, Desirable <200 mg/dL Borderline high cholesterol 200-239 mg/dL High cholesterol >=240 mg/dL Recommendations of the NCEP Adult Treatment Panel for the following risk-cutoff thresholds for the [place] population. Performed By: #### L 500.3400, L500.4100 #### [facility] [address] [place], [address] Cholesterol in HDL [Mass/Vol] 45 mg/dL Normal [facility] Comment on above: Result Comment: [place] onal Cholesterol Education Program (NCEP) guidelines: <40 mg/dL: Low HDL-cholesterol (major risk factor for CHD) >= 60 mg/dL: High HDL-cholesterol (negative risk factor for CHD) HDL-cholesterol is affected by a number of factors, e.g. smoking, exercise, hormones, sex and age. Performed By: #### L 500.3400, L500.4100 #### [facility] [address] [place], [address] Cholesterol in LDL [Mass/Vol] 88 mg/dL [facility] Comment on above: Result Comment: Bord uutcen=506-836 mg/dL Higher Itza=348 mg/dL or greater Performed By: #### L 500.3400, L500.4100 #### [facility] [address] [place], [address] Cholesterol in VLDL [Mass/Vol] 13 mg/dL Normal 5-40 [facility] Comment on above: Performed By: #### L 500.3400, L500.4100 #### [facility] [address] [place], [address] Triglyceride [Mass/Vol] 66 mg/dL Normal [facility] Comment on above: Result Comment: The drugs N-Acetylcysteine and Metamizole may falsely depress this assay. Normal range: <150 mg/dL Borderline High: 150-199 mg/dL High: 200-499 mg/dL Very High: >500 mg/dL Performed By: #### L 500.3400, L500.4100 #### [facility] [address] [place], [address] Liver Profileon 01-13-2025 Albumin [Mass/Vol] 4.2 g/dL Normal 3.4-4.8 [facility] Comment on above: Performed By: #### L 500.3400, L500.4100 #### [facility] [address] [place], [address] ALK PHOS 77 U/L Normal 40-129 [facility] Comment on above: Performed By: #### L 500.3400, L500.4100 #### [facility] [address] [place], [address] ALT [Catalytic activity/Vol] 39 U/L Normal <=46 [facility] Comment on above: Performed By: #### L 500.3400, L500.4100 #### [facility] [address] [place], [address] AST [Catalytic activity/Vol] 37 U/L Normal <=37 [facility] Comment on above: Result Comment: Hemo lysis present, Results??could be affected. ?? Performed By: #### L 500.3400, L500.4100 #### [facility] [address] [place], [address] Bilirubin [Mass/Vol] 0.36 mg/dL Normal 0.00-1.30 [facility] Comment on above: Performed By: #### L 500.3400, L500.4100 #### [facility] [address] [place], [address] Bilirubin.direct [Mass/Vol] 0.13 mg/dL Normal 0.00-0.30 [facility] Comment on above: Result Comment: Hemo lysis present, Results??could be affected. ?? Performed By: #### L 500.3400, L500.4100 #### [facility] [address] [place], [address] Globulin (S) [Mass/Vol] 2.6 g/dL Normal 2.2-4.2 [facility] Comment on above: Performed By: #### L 500.3400, L500.4100 #### [facility] [address] [place], [address] T PROT 6.8 g/dL Normal 5.9-8.4 [facility] Comment on above: Performed By: #### L 500.3400, L500.4100 #### [facility] [address] [place], [address] Screening total cholesterol/ high density lipoprotein (HDL) cholesterol ratioOrdered By: Terri Lowe on 01-13-2025 Cholesterol.total/Choles terol in HDL [Mass ratio] 3.23 {ratio} [facility] Serum globulin measurementOr dered By: Terri Lowe on 01-13-2025 Globulin (S) [Mass/Vol] 2.6 g/dL 2.2-4.2 [facility] Serum or plasma alanine lamar otransferase (ALT) measurementOrdered By: Terri Lowe on 01-13-2025 ALT [Catalytic activity/Vol] 39 U/L <47 [facility] Serum or plasma albumin ernesto urement (mass/volume)Ordered By: Terri Lowe on 01-13-2025 Albumin [Mass/Vol] 4.2 g/dL 3.4-4.8 [facility] Serum or plasma alkaline cassi sphatase measurementOrdered By: Terri Lowe on 01-13-2025 ALP [Catalytic activity/Vol] 77 U/L 40-129 [facility] Serum or plasma cholesterol in HDL measurement (mass/volume)Ordered By: Terri Lowe on 01-13-2025 Cholesterol in HDL [Mass/Vol] 45 mg/dL >40 [facility] Comment on above: National Cholesterol Education Program (NCEP) guidelines:<40 mg/dL: Low HDL-cholesterol (major risk factor for CHD)>= 60 mg/dL: High HDL-cholesterol (negative risk factor for CHD)HDL-cholesterol is affected by a number of factors, e.g. smoking, exercise, hormones, sex and age. Serum or plasma cholesterol measurement (mass/volume)Ordered By: Terri Lowe on 01-13-2025 Cholesterol [Mass/Vol] 146 mg/dL <201 [facility] Comment on above: Cholesterol level, D esirable <200 mg/dLBorderline high cholesterol 200-239 mg/dLHigh cholesterol >=240 mg/dLRecommendations of the NCEP Adult Treatment Panel for the following risk-cutoff thresholds for the [place] population. Total proteinOrdered By: Casey Lowe on 01-13-2025 Protein [Mass/Vol] 6.8 g/dL 5.9-8.4 [facility] Triglycerides measurementOrd ered By: Terri Lowe on 01-13-2025 Triglyceride [Mass/Vol] 66 mg/dL <199 [facility] Comment on above: The drugs N-Acetylcy steine and Metamizole may falsely depress this assay. Normal range: <150 mg/dLBorderline High: 150-199 mg/dLHigh: 200-499 mg/dLVery High: >500 mg/dL Cardiology Visit Reporton Cardiology Visit Report [facility] [address] [place] [address] OFFICE VISIT Date of Service: 07/17/24 MR#: [id number] Acct: [id number] Name: OLESYA LANDON Rep #: [id number] : 1955 Provider: OWEN vegas Age/Sex: 68/M Location: [facility] Status: Signed HPI HPI History of Present Illness Details: This is a 68-year-old white male who presents today for outpatient cardiovascular follow-up of his history of CAD, non-ST segment elevation IN, status post RCA PCI-remote, cardiomyopathy, VT, status post EPS/RFA, status post ICD placement, and hyperlipidemia. He denies chest, arm, jaw, or neck discomfort. He states palpitations. He denies bilateral lower extremity edema. He denies claudication. He denies shortness of breath with activity, shortness of breath at rest, orthopnea, or PND. He denies chronic cough. He denies significant, sudden weight gain. He states dizziness, lightheadedness, and near-syncope. He denies syncope. He denies blood in urine, blood in stool, or epistaxis. He denies fever with chills. He denies myalgia. He denies fatigue. His exercise level has remained stable. He had his defibrillator interrogated today. Intake Vital Signs 01/23/24 10:00 07/17/24 10:19 07/17/24 11:47 Height 6 ft 6 ft Weight: 195 lb BMI 26.4 BP 107/62 Blood Pressure Location Lt brachial Position Sitting Respiration 16 Pulse 56 L Pulse Source NIBP Intake Visit Reasons: 6 M FU/BLANCA @ 11 Visual Journalist Required: No Accompanied by: Self Is patient in pain?: No Allergies adhesive Allergy (Verified 07/17/24 11:18) Rash amoxicillin trihydrate (From Augmentin) Allergy (Verified 07/17/24 11:18) Hives potassium clavulanate (From Augmentin) Allergy (Verified 07/17/24 11:18) Hives sulfamethoxazole (From Bactrim) Allergy (Verified 07/17/24 11:18) Hives trimethoprim (From Bactrim) Allergy (Verified 07/17/24 11:18) Hives Medications ???Medication ???Instructions ???Recorded ???Confirmed ???Type folic acid 800 mcg tablet 0.8 mg PO DAILY@0800 07/18/13 07/17/24 History citalopram 40 mg tablet 40 mg PO DAILY 08/22/19 07/17/24 History nitroglycerin 0.4 mg sublingual 0.4 mg sublingual Q5M PRN Chest 12/24/20 07/17/24 Rx tablet Pain #25 tabs lorazepam 2 mg tablet 2 mg PO QHS 11/29/22 07/17/24 History diltiazem HCl 180 mg 360 mg (2 x 180 mg) PO DAILY #180 10/13/23 07/17/24 Rx capsule,extended release 24 hr caps enalapril maleate 20 mg tablet 20 mg PO QHS #90 tabs 01/23/24 07/17/24 Rx metoprolol tartrate 50 mg tablet 50 mg PO BID #180 tabs 01/23/24 07/17/24 Rx aspirin 81 mg tablet,delayed 81 mg PO QDAY 07/17/24 07/17/24 History release (Adult Aspirin Regimen) pravastatin 40 mg tablet 40 mg PO QDAY #90 tabs 07/17/24 07/17/24 Rx Ejection fraction %: 55 Have you fallen in the past year?: No PFSH Medical History Premature ventricular contraction Essential hypertension Hyperlipidemia Subsequent ST elevation (STEMI) myocardial infarction of inferior wall Old myocardial infarction Atherosclerotic heart disease 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 pectoris Ventricular tachycardia Palpitations Prostate cancer Surgical History Presence of coronary angioplasty implant and graft History of hernia repair History of basal cell carcinoma excision History of prostatectomy History of tonsillectomy H/O cardiac radiofrequency ablation ( 04/2002) History of coronary artery stent placement ( 12/2001) Presence of automatic (implantable) cardiac defibrillator Social History Smoking Status: Former smoker Electronic Cigarette Use: not used second hand exposure: No alcohol intake: current alcohol intake frequency: holidays/special occasions only Alcohol type: hard liquor substance use type: does not use what type of physical activity do you participate in: other details: [employer] frequency: 3-4 times per week duration: > 90 minutes/day seatbelt use: always do you feel safe at home: Yes ROS Const Const: Negative for fatigue, weakness, headache(s) or weight gain ENT ENT: Positive for dizziness and balance problems; Negative for headache(s) or Nosebleed/epistaxis Cardio Chest Pain: No Palpitations: Yes Edema: None Muscle aches with walking: None Resp Respiratory: Negative for SOB with activity, SOB at rest or SOB orthopnea SOB lying down GI GI: Positive for heartburn; Negative nausea or vomiting Musc Musc: Positive for balance problems; Negative for muscle aches/ myalgia, muscle weakness or joint pain Neuro Neuro: Positive for dizziness, lightheadedness and near syncope; Negative for syncope, headache(s (more content not included)... Normal [facility] Pacemaker Checkon 07-17-2024 Pacemaker Check [facility] [address] [place] [address] Pacemaker Check Date of Service: 07/17/24 1400 MR#: [id number] Acct: [id number] Name: BARBIOLESYAAlysa GUTIERREZ Rep #: [id number] : 1955 From: Nuris Nur Age/Sex: 68/M Location: [facility] – [place] Status: Signed Billing Codes ICD Device Billin ICD Dev Prog Eval, Single Assessment and Plan Assessment and Plan (1) Presence of automatic (implantable) cardiac defibrillator: Status: Chronic (2) Ventricular tachycardia: Status: Chronic (3) H/O cardiac radiofrequency ablation: Status: Chronic (4) Premature ventricular contraction: Status: Acute 07/17/24 1401 Date Nuris Fitzpatrick Signature: Date (if applicable) CC: Normal [facility] Basic Metabolic Profile (BMP )on 07-16-2024 BUN/CRE 14.2 RATIO Normal 10-20 [facility] Comment on above: Performed By: #### L 100.0100, L500.2499, , L501.9940 ####[facility] [address] [place], [address] CA,Total 9.4 mg/dL Normal 8.5-10.1 [facility] Comment on above: Performed By: #### L 100.0100, L500.2499, , L501.9940 ####[facility] [address] [place], [address] Chloride [Moles/Vol] 105 mmol/L Normal 98-107 [facility] Comment on above: Performed By: #### L 100.0100, L500.2499, , L501.9940 ####[facility] [address] [place], [address] CO2 [Moles/Vol] 31.0 mmol/L Normal 21.0-32.0 [facility] Comment on above: Performed By: #### L 100.0100, L500.2499, , L501.9940 ####[facility] [address] [place], [address] Creatinine [Mass/Vol] 1.27 mg/dL Normal 0.70-1.30 [facility] Comment on above: Result Comment: The validity of the calculated GFR GFRAA in patients over 70 years has not been determined. Clinical correlation is essential. Performed By: #### L 100.0100, L500.2499, L4, L501.9940 ####[facility] [address] [place], [address] EST GFR - AA 72 mL/min Normal >60 [facility] Comment on above: Result Comment: Afri can [place] GFR Calc Performed By: #### L 100.0100, L500.2499, , L501.9940 ####[facility] [address] [place], [address] GAP 3 Low 5-15 [facility] Comment on above: Performed By: #### L 100.0100, L500.2500, , L501.9940 ####[facility] [address] [place], [address] GFR/1.73 sq M.predicted among non-blacks MDRD (S/P/Bld) [Vol rate/Area] 60 mL/min/{1.73_m2} Normal >60 [facility] Comment on above: Result Comment: Non- GFR Calc Performed By: #### L 100.0100, L500.2499, , L501.9940 ####[facility] [address] [place], [address] Glucose [Mass/Vol] 93 mg/dL Normal 74-106 [facility] Comment on above: Performed By: #### L 100.0100, L500.2499, , L501.9940 ####[facility] [address] [place], [address] Potassium [Moles/Vol] 5.0 mmol/L Normal 3.5-5.1 [facility] Comment on above: Performed By: #### L 100.0100, L500.2499, , L501.9940 ####[facility] [address] [place], [address] Sodium [Moles/Vol] 139 mmol/L Normal 136-145 [facility] Comment on above: Performed By: #### L 100.0100, L500.2500, , L501.9940 ####[facility] [address] [place], [address] Urea nitrogen [Mass/Vol] 18 mg/dL Normal 7-18 [facility] Comment on above: Performed By: #### L 100.0100, L500.2500, L4, L501.9940 ####[facility] [address] [place], [address] CBC W/Diff, Automatedon 12-1 0-2024 Absolute Lymph 2.02 X10 3/uL Normal 0.83-4.51 [facility] Comment on above: Performed By: #### L 100.0100, L500.2500, L4.2010, L501.9940 #### [facility] [address] [place], [address] Absolute Neut 3.7 X10 3/uL Normal 2.0-7.7 [facility] Comment on above: Performed By: #### L 100.0100, L500.2500, L4, L501.9940 #### [facility] [address] [place], [address] Basophils/100 WBC (Bld) 1.0 % Normal 0-1 [facility] Comment on above: Performed By: #### L 100.0100, L500.2500, L4, L501.9940 #### [facility] [address] [place], [address] Eosinophils/100 WBC (Bld) 2.6 % Normal 0-5 [facility] Comment on above: Performed By: #### L 100.0100, L500.2500, L4.2010, L501.9940 #### [facility] [address] [place], [address] Erythrocyte distribution width (RBC) [Ratio] 13.0 % Normal 11.6-14.6 [facility] Comment on above: Performed By: #### L 100.0100, L500.2500, L4, L501.9940 #### [facility] [address] [place], [address] Hematocrit (Bld) [Volume fraction] 47.8 % Normal 40-54 [facility] Comment on above: Performed By: #### L 100.0100, L500.2500, L4, L501.9940 #### [facility] [address] [place], [address] Hemoglobin (Bld) [Mass/Vol] 15.4 g/dL Normal 13.0-16.5 [facility] Comment on above: Performed By: #### L 100.0100, L500.2500, L4, L501.9940 #### [facility] [address] [place], [address] IG% 0.300 Normal 0.0-0.9 [facility] Comment on above: Result Comment: IG% - Immature Granulocytes (promyelocytes, myelocytes and metamyelocytes) > 1% indicates that a LEFT SHIFT is Present. Performed By: #### L 100.0100, L500.2500, L4, L501.9940 #### [facility] [address] [place], [address] Lymphocytes/100 WBC (Bld) 29.0 % Normal 19-41 [facility] Comment on above: Performed By: #### L 100.0100, L500.2500, L4, L501.9940 #### [facility] [address] [place], [address] MCH (RBC) [Entitic mass] 29.6 pg Normal 27.0-32.0 [facility] Comment on above: Performed By: #### L 100.0100, L500.2500, L4, L501.9940 #### [facility] [address] [place], [address] MCHC (RBC) [Mass/Vol] 32.2 g/dL Normal 32-36 [facility] Comment on above: Performed By: #### L 100.0100, L500.2500, L4, L501.9940 #### [facility] [address] [place], [address] MCV (RBC) [Entitic vol] 91.9 fL Normal 80-94 [facility] Comment on above: Performed By: #### L 100.0100, L500.2500, L4, L501.9940 #### [facility] [address] [place], [address] Monocytes/100 WBC (Bld) 13.6 % High 0-10 [facility] Comment on above: Performed By: #### L 100.0100, L500.2499, L4, L501.9940 #### [facility] [address] [place], [address] Neutrophils/100 WBC (Bld) 53.5 % Normal 47-70 [facility] Comment on above: Performed By: #### L 100.0100, L500.2500, L4, L501.9940 #### [facility] [address] [place], [address] Nucleated RBC (Bld) [#/Vol] 0 10*3/uL Normal 0-5 [facility] Comment on above: Performed By: #### L 100.0100, L500.2499, L4, L501.9940 #### [facility] [address] [place], [address] Platelet mean volume (Bld) [Entitic vol] 10.2 fL Normal 6.2-12.0 [facility] Comment on above: Performed By: #### L 100.0100, L500.2500, L4, L501.9940 #### [facility] [address] [place], [address] Platelets (Bld) [#/Vol] 192 10*3/uL Normal 150-450 [facility] Comment on above: Performed By: #### L 100.0100, L500.2500, L4, L501.9940 #### [facility] [address] [place], [address] RBC (Bld) [#/Vol] 5.20 10*6/uL Normal 4.6-6.2 [facility] Comment on above: Performed By: #### L 100.0100, L500.2500, L4, L501.9940 #### [facility] [address] [place], [address] RDW SD 44.3 fl High 35.1-43.9 [facility] Comment on above: Performed By: #### L 100.0100, L500.2500, L4, L501.9940 #### [facility] [address] [place], [address] WBC (Bld) [#/Vol] 7.0 10*3/uL Normal 4.4-11.0 [facility] Comment on above: Performed By: #### L 100.0100, L500.2499, L4, L501.9940 #### [facility] [address] [place], [address] PSA,Total- Diagnosticon 12-1 0-2023 PSA, DIAGNOSTIC < 0.01 Normal 0.0-4.0 [facility] Comment on above: Result Comment: This test was performed using the TPSA assay method for the [employer] chemistry system. Values obtained with different assay methods cannot be used interchangably. When changing PSA assays in the course of monitoring a patient, additional sequential testing should be carried out to confirm baseline values. Performed By: #### L 100.0100, L500.2500, L4, L501.9940 ####[facility] [address] [place], [address] Urinalysis, Routine (Dipstic k)on 07-16-2024 BILIRUBIN URINE Negative Normal Negative [facility] Comment on above: Order Comment: Urine , Random Performed By: #### L 100.0100, L500.2499, L4.2010, L501.9940 #### [facility] [address] [place], [address] Clarity (U) Clear Normal Clear [facility] Comment on above: Order Comment: Urine , Random Performed By: #### L 100.0100, L500.2499, L4, L501.9940 #### [facility] [address] [place], [address] Color (U) Yellow Normal Yellow [facility] Comment on above: Order Comment: Urine , Random Performed By: #### L 100.0100, L500.2499, L4, L501.9940 #### [facility] [address] [place], [address] GLUCOSE, UR Normal Normal Normal [facility] Comment on above: Order Comment: Urine , Random Performed By: #### L 100.0100, L500.2499, L4.2010, L501.9940 #### [facility] [address] [place], [address] KETONE UR Negative Normal Negative [facility] Comment on above: Order Comment: Urine , Random Performed By: #### L 100.0100, L500.2499, L4.2010, L501.9940 #### [facility] [address] [place], [address] LEUK ESTERASE Negative Normal Negative [facility] Comment on above: Order Comment: Urine , Random Performed By: #### L 100.0100, L500.2500, L4.2010, L501.9940 #### [facility] [address] [place], [address] Nitrite Ql (U) Negative Normal Negative [facility] Comment on above: Order Comment: Urine , Random Performed By: #### L 100.0100, L500.2500, L4, L501.9940 #### [facility] [address] [place], [address] OCCULT BLOOD-UR 25 /ul Abnormal Negative [facility] Comment on above: Order Comment: Urine , Random Performed By: #### L 100.0100, L500.2499, L4, L501.9940 #### [facility] [address] [place], [address] pH UR 5.0 Normal 5.0 - 8.0 [facility] Comment on above: Order Comment: Urine , Random Performed By: #### L 100.0100, L500.2500, L4, L501.9940 #### [facility] [address] [place], [address] PROT DIPSTX 15 mg/dl Abnormal Negative [facility] Comment on above: Order Comment: Urine , Random Performed By: #### L 100.0100, L500.2499, L4, L501.9940 #### [facility] [address] [place], [address] SP.GR. DIPSTX 1.025 Normal 1.002-1.030 [facility] Comment on above: Order Comment: Urine , Random Performed By: #### L 100.0100, L500.2499, L4, L501.9940 #### [facility] [address] [place], [address] UROBILI Normal Normal Normal [facility] Comment on above: Order Comment: Urine , Random Performed By: #### L 100.0100, L500.2500, L4, L501.9940 #### [facility] [address] [place], [address] Lipid Profileon 07-12-2024 Cholesterol [Mass/Vol] 157 mg/dL Normal 200 [facility] Comment on above: Result Comment: <200 mg/dL Desirable 200-240 mg/dL Borderline >240 mg/dL High Risk Performed By: #### L 500.3400, L500.4100 #### [facility] [address] [place], [address] Cholesterol in HDL [Mass/Vol] 46 mg/dL Normal [facility] Comment on above: Result Comment: The drugs N-Acetylcysteine and Metamizole may falsely depress this assay. Reference Range HDL <40 mg/dL Low HDL Cholesterol HDL >or= 60 mg/dL High HDL Cholesterol Performed By: #### L 500.3400, L500.4100 #### [facility] [address] [place], [address] Cholesterol in LDL [Mass/Vol] 86 mg/dL Normal 0-130 [facility] Comment on above: Performed By: #### L 500.3400, L500.4100 #### [facility] [address] [place], [address] Cholesterol in VLDL [Mass/Vol] 25 mg/dL Normal 5-40 [facility] Comment on above: Performed By: #### L 500.3400, L500.4100 #### [facility] [address] [place], [address] Triglyceride [Mass/Vol] 123 mg/dL Normal [facility] Comment on above: Result Comment: The drugs N-Acetylcysteine and Metamizole may falsely depress this assay. Serum Triglycerides Reference Interval Normal <150 mg/dL Borderline high 150 - 199 mg/dL High 200 - 499 mg/dL Very High > or = 500 mg/dL Performed By: #### L 500.3400, L500.4100 #### [facility] [address] [place], [address] Liver Profileon 07-12-2024 Albumin [Mass/Vol] 3.8 g/dL Normal 3.2-5.0 [facility] Comment on above: Performed By: #### L 500.3400, L500.4100 #### [facility] [address] [place], [address] ALK P 75 U/L Normal 45-117 [facility] Comment on above: Performed By: #### L 500.3400, L500.4100 #### [facility] [address] [place], [address] ALT [Catalytic activity/Vol] 43 U/L Normal 16-61 [facility] Comment on above: Performed By: #### L 500.3400, L500.4100 #### [facility] [address] [place], [address] AST [Catalytic activity/Vol] 31 U/L Normal 15-37 [facility] Comment on above: Performed By: #### L 500.3400, L500.4100 #### [facility] [address] [place], [address] Bilirubin [Mass/Vol] 0.50 mg/dL Normal 0.20-1.00 [facility] Comment on above: Result Comment: For patients on eltrombopag therapy, use of Dimension [place]eller TBIL is not recommended. Performed By: #### L 500.3400, L500.4100 #### [facility] [address] [place], [address] Bilirubin.direct [Mass/Vol] 0.15 mg/dL Normal 0.00-0.30 [facility] Comment on above: Performed By: #### L 500.3400, L500.4100 #### [facility] [address] [place], [address] Globulin (S) [Mass/Vol] 3.0 g/dL Normal 2.2-4.2 [facility] Comment on above: Performed By: #### L 500.3400, L500.4100 #### [facility] [address] [place], [place], [address] T PROT 6.8 g/dL Normal 6.4-8.2 [facility] Comment on above: Performed By: #### L 500.3400, L500.4100 #### [facility] [address] [place], [address] PSA,Total- Diagnosticon 06-07 PSA, DIAGNOSTIC 0.02 ng/mL Normal 0.0-4.0 [facility] Comment on above: Result Comment: This test was performed using the TPSA assay method for the [employer] chemistry system. Values obtained with different assay methods cannot be used interchangably. When changing PSA assays in the course of monitoring a patient, additional sequential testing should be carried out to confirm baseline values. Performed By: #### L 501.9940 ####[facility] [address] [place], [place], [address] Basophil percentageOrdered B y: Corona Webster on 06-19-2023 Basophil percentage 0 SEEN /hpf 0-5 [facility] Bilirubin Test strip Ql (U)O rdered By: Corona Webster on 06-19-2023 Bilirubin Ql (U) Negative Negative [facility] Ketones Test strip Ql (U)Ord ered By: Corona Webster on 06-19-2023 Ketones Ql (U) Negative Negative [facility] Mucus LM Ql (Urine sed)Order ed By: Corona Webster on 06-19-2023 Mucus Ql (Urine sed) 0 SEEN /hpf [facility] Nitrite Test strip Ql (U)Ord ered By: Corona Webster on 06-19-2023 Nitrite Ql (U) Negative Negative [facility] Protein Test strip Ql (U)Ord ered By: Corona Webster on 06-19-2023 Protein Ql (U) Negative Negative [facility] Squamous epithelial cells de tection in urine sediment by light microscopyOrdered By: Corona Webster on 06-19-2023 Epithelial cells.squamous LM Ql (Urine sed) 0 SEEN /hpf 0-5 [facility] Urine blood detectionOrdered By: Corona Webster on 06-19-2023 RBC Ql (U) Negative Negative [facility] RBC Ql (U) 0 SEEN /hpf 0-5 [facility] Urine clarityOrdered By: Freddy [place] on 06-19-2023 Clarity (U) Clear Clear [facility] Urine color determinationOrd ered By: Corona Webster on 06-19-2023 Color (U) Yellow Yellow [facility] Urine glucose detectionOrder ed By: Corona Webster on 06-19-2023 Glucose Ql (U) Normal mg/dl Normal [facility] Urine leukocyte esterase det ection by dipstickOrdered By: Corona Webster on 06-19-2023 Leukocyte esterase Test strip Ql (U) Negative Negative [facility] Urine pHOrdered By: Corona mckeon on 06-19-2023 pH (U) 6.5 [pH] 5.0 - 8.0 [facility] Urine sediment bacteria coun t by microscopy (number/high power field)Ordered By: Corona Webster on 06-19-2023 Bacteria LM.HPF (Urine sed) [#/Area] 0 /[HPF] None Seen [facility] Urine specific gravity measu rementOrdered By: Corona Webster on 06-19-2023 Specific gravity (U) [Rel density] 1.005 1.002-1.030 [facility] Urobilinogen Auto test strip Ql (U)Ordered By: Corona Webster on 06-19-2023 Urobilinogen Ql (U) Normal mg/dl Normal [facility] No Panel InformationOrdered By: Corona Webster on 06-13-2023 Prostate Specific Antigen Total < 0.01 ng/mL 0.0-4.0 [facility] Comment on above: This test was perfor med using the TPSA assay method for theDimension chemistry system. Values obtained with differentassay methods cannot be used interchangably.When changing PSA assays in the course of monitoring apatient, additional sequential testing should be carriedout to confirm baseline values. Basophil percentageOrdered B y: Tres Anayeli on 05-29-2023 Bilirubin [Mass/Vol] 0.50 mg/dL 0.20-1.00 [facility] Comment on above: For patients on eltr ombopag therapy, use of Dimension [place] TBIL is not recommended. Cholesterol [Mass/Vol] 142 mg/dL <200 [facility] Comment on above: <200 mg/dL Desirable 200-240 mg/dL Borderline >240 mg/dL High Risk Protein [Mass/Vol] 7.0 g/dL 6.4-8.2 [facility] Triglyceride [Mass/Vol] 80 mg/dL <199 [facility] Comment on above: The drugs N-Acetylcy steine and Metamizole may falsely depress this assay.Serum Triglycerides Reference Interval Normal <150 mg/dL Borderline high 150 - 199 mg/dL High 200 - 499 mg/dL Very High > or = 500 mg/dL Direct bilirubinOrdered By: Tres Guadalupe on 05-29-2023 Bilirubin.direct [Mass/Vol] 0.13 mg/dL 0.00-0.30 [facility] - Chemistry and C hemistry - challengeOrdered By: Tres Guadalupe on 05-29-2023 ALP [Catalytic activity/Vol] 59 U/L 45-117 [facility] ALT [Catalytic activity/Vol] 32 U/L 16-61 [facility] Globulin (S) [Mass/Vol] 3.4 g/dL 2.2-4.2 [facility] Serum or plasma albumin ernesto urement (mass/volume)Ordered By: Tres Guadalupe on 05-29-2023 Albumin [Mass/Vol] 3.6 g/dL 3.2-5.0 [facility] Serum or plasma cholesterol in HDL measurement (mass/volume)Ordered By: Tres Guadalupe on 05-29-2023 Cholesterol in HDL [Mass/Vol] 38 mg/dL >40 [facility] Comment on above: The drugs N-Acetylcy steine and Metamizole may falsely depress this assay. Reference Range HDL <40 mg/dL Low HDL Cholesterol HDL >or= 60 mg/dL High HDL Cholesterol Serum or plasma cholesterol in VLDL measurement (mass/volume)Ordered By: Tres Guadalupe on 05-29-2023 Cholesterol in VLDL [Mass/Vol] 16 mg/dL 5-40 [facility] Serum or plasma low density lipoprotein (LDL) cholesterol measurement (mass/volume)Ordered By: Tres Guadalupe on 05-29-2023 Cholesterol in LDL [Mass/Vol] 88 mg/dL 0-130 [facility] Thin prep Papanicolaou smear with manual screeningOrdered By: Tres Guadalupe on 05-29-2023 Thin prep Papanicolaou smear with manual screening 19 U/L 15-37 [facility] Basophil percentageOrdered B y: Tres Guadalupe on 11-25-2022 Bilirubin [Mass/Vol] 0.40 mg/dL 0.20-1.00 [facility] Comment on above: For patients on eltr ombopag therapy, use of Dimension [place]eller TBIL is not recommended. Cholesterol [Mass/Vol] 136 mg/dL <200 [facility] Comment on above: <200 mg/dL Desirable 200-240 mg/dL Borderline >240 mg/dL High Risk Protein [Mass/Vol] 6.8 g/dL 6.4-8.2 [facility] Triglyceride [Mass/Vol] 94 mg/dL <199 [facility] Comment on above: The drugs N-Acetylcy steine and Metamizole may falsely depress this assay.Serum Triglycerides Reference Interval Normal <150 mg/dL Borderline high 150 - 199 mg/dL High 200 - 499 mg/dL Very High > or = 500 mg/dL Direct bilirubinOrdered By: Tres Guadalupe on 11-25-2022 Bilirubin.direct [Mass/Vol] 0.16 mg/dL 0.00-0.30 [facility] - Chemistry and C hemistry - challengeOrdered By: Tres Guadalupe on 11-25-2022 ALP [Catalytic activity/Vol] 57 U/L 45-117 [facility] ALT [Catalytic activity/Vol] 52 U/L 16-61 [facility] Globulin (S) [Mass/Vol] 3.1 g/dL 2.2-4.2 [facility] Serum or plasma albumin ernesto urement (mass/volume)Ordered By: Tres Guadalupe on 11-25-2022 Albumin [Mass/Vol] 3.7 g/dL 3.2-5.0 [facility] Serum or plasma cholesterol in HDL measurement (mass/volume)Ordered By: Tres Guadalupe on 11-25-2022 Cholesterol in HDL [Mass/Vol] 43 mg/dL >40 [facility] Comment on above: The drugs N-Acetylcy steine and Metamizole may falsely depress this assay. Reference Range HDL <40 mg/dL Low HDL Cholesterol HDL >or= 60 mg/dL High HDL Cholesterol Serum or plasma cholesterol in VLDL measurement (mass/volume)Ordered By: Tres Guadalupe on 11-25-2022 Cholesterol in VLDL [Mass/Vol] 19 mg/dL 5-40 [facility] Serum or plasma low density lipoprotein (LDL) cholesterol measurement (mass/volume)Ordered By: Tres Guadalupe on 11-25-2022 Cholesterol in LDL [Mass/Vol] 74 mg/dL 0-130 [facility] Thin prep Papanicolaou smear with manual screeningOrdered By: Tres Guadalupe on 11-25-2022 Thin prep Papanicolaou smear with manual screening 28 U/L 15-37 [facility] Cytology report of Body flui d Cyto stainon 06-13-2022 Cytology report Cyto stain Doc (Body fld) SEE PATHOLOGY REPORT [facility] Work Phone: Comment on above: Specimen submitted t o Anatomical Pathology Department for testing. No Panel Informationon 06-07 Prostate Specific Antigen Total < 0.01 ng/mL 0.0-4.0 [facility] Work Phone: Comment on above: This test was perfor med using the TPSA assay method for the[employer] chemistry system. Values obtained with differentassay methods cannot be used interchangably.When changing PSA assays in the course of monitoring apatient, additional sequential testing should be carriedout to confirm baseline values. Basophil percentageon 2021 Bilirubin [Mass/Vol] 0.60 mg/dL 0.20-1.00 [facility] Work Phone: Comment on above: For patients on eltr ombopag therapy, use of Dimension [place]eller TBIL is not recommended. Cholesterol [Mass/Vol] 138 mg/dL <200 [facility] Work Phone: Comment on above: <200 mg/dL Desirable 200-240 mg/dL Borderline >240 mg/dL High Risk Protein [Mass/Vol] 6.9 g/dL 6.4-8.2 [facility] Work Phone: Triglyceride [Mass/Vol] 103 mg/dL <199 [facility] Work Phone: Comment on above: The drugs N-Acetylcy steine and Metamizole may falsely depress this assay.Serum Triglycerides Reference Interval Normal <150 mg/dL Borderline high 150 - 199 mg/dL High 200 - 499 mg/dL Very High > or = 500 mg/dL Direct bilirubinon Bilirubin.direct [Mass/Vol] 0.14 mg/dL 0.00-0.30 [facility] Work Phone: Laboratory - Chemistry and C hemistry - challengeon 04-25-2022 ALP [Catalytic activity/Vol] 55 U/L 45-117 [facility] Work Phone: ALT [Catalytic activity/Vol] 25 U/L 16-61 [facility] Work Phone: Globulin (S) [Mass/Vol] 3.1 g/dL 2.2-4.2 [facility] Work Phone: Serum or plasma albumin ernesto urement (mass/volume)on 04-25-2022 Albumin [Mass/Vol] 3.8 g/dL 3.2-5.0 [facility] Work Phone: Serum or plasma cholesterol in HDL measurement (mass/volume)on 04-25-2022 Cholesterol in HDL [Mass/Vol] 41 mg/dL >40 [facility] Work Phone: Comment on above: The drugs N-Acetylcy steine and Metamizole may falsely depress this assay. Reference Range HDL <40 mg/dL Low HDL Cholesterol HDL >or= 60 mg/dL High HDL Cholesterol Serum or plasma cholesterol in VLDL measurement (mass/volume)on 04-25-2022 Cholesterol in VLDL [Mass/Vol] 21 mg/dL 5-40 [facility] Work Phone: Serum or plasma low density lipoprotein (LDL) cholesterol measurement (mass/volume)on 04-25-2022 Cholesterol in LDL [Mass/Vol] 76 mg/dL 0-130 [facility] Work Phone: Thin prep Papanicolaou smear with manual screeningon 04-25-2022 Thin prep Papanicolaou smear with manual screening 21 U/L 15-37 [facility] Work Phone: Lab Report: Lipid Profileon 06-23-2017 Cholesterol 147 mg/dL Invalid Interpretation Code 200 [facility] Work Phone: [phone] HDL Cholesterol 47 mg/dL Invalid Interpretation Code [facility] Work Phone: [phone] LDL Cholesterol 83 mg/dL Invalid Interpretation Code 0-130 [facility] Work Phone: [phone] Triglyceride 87 mg/dL Invalid Interpretation Code [facility] [employer] Work Phone: [phone] very low density lipoproteins 17 mg/dL Invalid Interpretation Code 5-40 [facility] Work Phone: [phone] Lab Report: Liver Profileon 06-23-2017 Alanine aminotransferase (ALT) 37 U/L Invalid Interpretation Code 12-78 [facility] Work Phone: [phone] Albumin 3.8 g/dL Invalid Interpretation Code 3.4-5.0 [facility] Work Phone: [phone] Alkaline phosphatase (ALP) 57 U/L Invalid Interpretation Code 45-117 [facility] Work Phone: [phone] Aspartate aminotransferase (AST) 26 U/L Invalid Interpretation Code 15-37 [facility] [employer] Work Phone: [phone] Bilirubin (direct) 0.17 mg/dL Invalid Interpretation Code 0.00-0.30 [employer] Phone: [phone] Bilirubin (total) 0.60 mg/dL Invalid Interpretation Code 0.20-1.00 [facility] [employer] Work Phone: [phone] Globulin 3.4 g/dL Invalid Interpretation Code 2.2-4.2 [facility] Work Phone: [phone] Protein 7.2 g/dL Invalid Interpretation Code 6.4-8.2 [employer] Phone: [phone] Office Visiton 01-05-2017 Dietary management education, guidance, and counseling (procedure) yes Invalid Interpretation Code [employer] Phone: [phone] Documentation of current medications (procedure) Done Invalid Interpretation Code [employer] Phone: [phone] Protein mass conc Done [employer] [facility] Work Phone: [phone]) Pacemaker: Pacemaker/ICD [facility]kon 01-05-2017 lead advisory Device Advisory for premature battery depletion. Make sure vibratory notifier is on for AMBAR and see if can do remote checks utilizing direct alerts feature, Advise pt if receives vebratory notivication to contact offfice promptly. Invalid Interpretation Code [facility] Work Phone: [phone] Lab Report: Lipid Profileon 12-26-2016 Cholesterol 145 mg/dL 200 [place] [facility] Work Phone: [phone] HDL Cholesterol 41 mg/dL [facility] [employer] Work Phone: [phone] LDL Cholesterol 83 mg/dL 0-130 [place] [employer] Work Phone: [phone] Triglyceride 107 mg/dL [facility] Work Phone: [phone] very low density lipoproteins 21 mg/dL 5-40 [facility] [employer] Work Phone: [phone] Lab Report: Liver Profileon 12-26-2016 Alanine aminotransferase (ALT) 30 U/L 12-78 [facility] Work Phone: [phone] Albumin 3.7 g/dL 3.4-5.0 [place] [employer] Work Phone: [phone] Alkaline phosphatase (ALP) 58 U/L Invalid Interpretation Code 45-117 [place] [facility] Work Phone: [phone] ALP (Bld) [Catalytic activity/Vol] 58 U/L 45-117 [place] [facility] Work Phone: [phone] Aspartate aminotransferase (AST) 21 U/L 15-37 [place] [facility] Work Phone: [phone] Bilirubin (direct) 0.12 mg/dL 0.00-0.30 [facility] Work Phone: [phone] Bilirubin (total) 0.50 mg/dL 0.20-1.00 [place] [facility] Work Phone: [phone] Globulin 3.2 g/dL Invalid Interpretation Code 2.3-3.5 [place] [facility] Work Phone: [phone] Globulin (S) [Mass/Vol] 3.2 g/dL 2.3-3.5 [facility] Work Phone: [phone] Protein 6.9 g/dL 6.4-8.2 [employer] Phone: [phone] Office Visiton 07-04-2016 Dietary management education, guidance, and counseling (procedure) yes Invalid Interpretation Code [employer] Phone: [phone] Documentation of current medications (procedure) Done Invalid Interpretation Code [employer] Phone: [phone] [facility] lead advisory Device Advisory for premature battery depletion. Make sure vibratory notifier is on for [facility] and see if can do remote checks utilizing direct alerts feature, Advise pt if receives vebratory notivication to contact offfice promptly. 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 Left ventricular Ejection fraction 45 % Invalid Interpretation Code [employer] Phone: [phone]) Lab Report: PSA,Total- Diagn osticon 11-20-2015 prostate specific antigen, total < 0.01 ng/mL Invalid Interpretation Code 0.0-4.0 [facility] Phone: [phone] Protein mass conc < 0.01 ng/mL 0.0-4.0 [facility] Work Phone: [phone] PSA, DIAGNOSTIC < 0.01 ng/mL Invalid Interpretation Code 0.0-4.0 [facility] Phone: [phone] Office Visit: 6 month routin e F/Uon 07-22-2015 Tobacco smoking status NHIS Former smoker [employer] Work Phone: [phone] Tobacco use CPHS Former smoker Invalid Interpretation Code [facility] Phone: [phone] Office Visiton 12-05-2014 cardiac risk group C Invalid Interpretation Code [facility] Phone: [phone] General cardiovascular disease 10Y risk [#] [place] N/A Invalid Interpretation Code [facility] Phone: [phone] Lab Report: PSA,Total- Diagn osticon 11-10-2014 GE use only - for [employer] import when terms are not otherwise specified < 0.01 ng/ml Invalid Interpretation Code 0.0-4.0 [facility] Work Phone: [phone] PSA, DIAGNOSTIC < 0.01 ng/ml Invalid Interpretation Code 0.0-4.0 [facility] Work Phone: [phone] Lab Report: Aaron 05-14-2014 Anion gap 4 mmol/L Low 5-15 [facility] Work Phone: [phone] Anion gap [Moles/Vol] 4 mmol/L Low 5-15 [facility] Work Phone: [phone] BUN/Creatinine Ratio 14.2 RATIO Normal 10-[address] [facility] Work Phone: [phone] Calcium 9.0 mg/dL Normal 8.5-10.1 [facility] Work Phone: [phone] Chloride 104 mmol/L Normal 98-107 [facility] Work Phone: [phone] CO2 29.0 mmol/L Normal 21.0-32.0 [facility] Work Phone: [phone] CO2 (BldV) [Partial pressure] 29.0 mmol/L Normal 21.0-32.0 [facility] Work Phone: [phone] Creatinine 1.2 mg/dL Normal 0.8-1.3 [facility] Work Phone: [phone] eGFR (non-black) 66 mL/min/{1.73_m2} Normal >60 [facility] Work Phone: [phone] eGFR (non-black) 80 mL/min/{1.73_m2} Normal >60 [facility] Work Phone: [phone] GFR/1.73 sq M.predicted MDRD (S/P/Bld) [Vol rate/Area] 66 mL/min/{1.73_m2} Normal >60 [facility] Work Phone: [phone] GFRAA 80 mL/min Normal >60 [facility] Work Phone: [phone] Glucose 81 mg/dL Normal 70-110 [facility] Work Phone: [phone] Glucose [Mass/Vol] 81 mg/dL Normal 70-110 [facility] Work Phone: [phone] Potassium 4.3 mmol/L Normal 3.5-5.1 [facility] Work Phone: [phone] Sodium 137 mmol/L Normal 136-145 [facility] Work Phone: [phone] Urea nitrogen 17 mg/dL Normal 7-18 [facility] Work Phone: [phone] Lab Report: CBCDon 4 Absolute Neutrophil count 3.4 X10 3/UL Normal 2.0-7.7 [facility] Work Phone: [phone] ANC 3.4 X10 3/UL Normal 2.0-7.7 [facility] Work Phone: [phone] Basophils/100 leukocytes 0.6 % Normal 0-1 [facility] Work Phone: [phone] Basophils/100 WBC (Bld) 0.6 % Normal 0-1 [facility] Work Phone: [phone] Eosinophils/100 leukocytes 2.8 % Normal 0-5 [facility] Work Phone: [phone] Eosinophils/100 WBC (Bld) 2.8 % Normal 0-5 [facility] Work Phone: [phone] Erythrocytes (RBC) 4.79 10*6/uL Normal 4.6-6.[address] [facility] [address] [facility] Work Phone: [phone] Hematocrit (Bld) [Volume fraction] 42.3 % Normal 40-54 [facility] Work Phone: [phone] Hematocrit (HCT) 42.3 % Normal 40-54 [facility] Work Phone: [phone] Hemoglobin (HGB) 14.5 g/dL Normal 13.0-16.5 [facility] Work Phone: [phone] Lymphocytes/100 leukocytes 35.6 % Normal 19-41 [facility] Work Phone: [phone] Lymphocytes/100 WBC (Bld) 35.6 % Normal 19-41 [facility] Work Phone: [phone] MCH 30.3 pg Normal 27.0-32.0 [facility] Work Phone: MCH (RBC) [Entitic mass] 30.3 pg Normal 27.0-32.0 [facility] Work Phone: [phone] MCHC 34.3 G/GL Normal 32-36 [facility] Work Phone: [phone] MCHC (RBC) [Mass/Vol] 34.3 G/GL Normal 32-36 [facility] Work Phone: [phone] MCV 88.3 fL Normal 80-94 [facility] Work Phone: [phone] MCV (RBC) [Entitic vol] 88.3 fL Normal 80-94 [facility] Work Phone: [phone] Monocytes/100 leukocytes 13.6 % High 0-10 [facility] Work Phone: [phone] Monocytes/100 WBC (Bld) 13.6 % High 0-10 [facility] Work Phone: [phone] Neutrophils/100 leukocytes 47.1 % Normal 47-70 [facility] Work Phone: [phone] Neutrophils/100 WBC (Bld) 47.1 % Normal 47-70 [facility] Work Phone: [phone] Platelet mean volume (Bld) [Entitic vol] 9.9 fL Normal 6.2-12.0 [facility] Work Phone: [phone] Platelets 179 10*3/mm3 Normal 150-450 [facility] Work Phone: [phone] Platelets (Bld) [#/Vol] 179 10*3/mm3 Normal 150-450 [facility] Work Phone: [phone] PMV by Awa 9.9 fL Normal 6.2-12.0 [facility] Work Phone: [phone] RBC (Bld) [#/Vol] 4.79 10*6/uL Normal 4.6-6.2 [facility] Work Phone: [phone] WBC (Bld) [#/Vol] 7.3 10*3/uL Normal 4.4-11.0 [facility] Work Phone: [phone] WBC (Leukocytes) 7.3 10*3/uL Normal 4.4-11.0 [facility] Work Phone: Replaced Document: Maurice Edgeon 05-07-2014 EKG QRS axis 38 deg Invalid Interpretation Code [facility] Work Phone: electrocardiogram interpretation Sinus Bradycardia WITHIN NORMAL LIMITS Invalid Interpretation Code [employer] [facility] Work Phone: Interpretation Sinus Bradycardia WITHIN NORMAL LIMITS Invalid Interpretation Code [employer] [facility] Work Phone: P [place] 40 deg Invalid Interpretation Code [employer] [facility] Work Phone: P wave axis, electrocardiogram 40 deg Invalid Interpretation Code [employer] [facility] Work Phone: MI Interval 174 ms Invalid Interpretation Code [employer] [facility] Work Phone: MI interval, electrocardiogram 174 ms Invalid Interpretation Code [employer] [facility] Work Phone: Pulse (Heart Rate) 53 /min Invalid Interpretation Code [employer] [facility] Work Phone: Pulse (Heart Rate) 436 ms Invalid Interpretation Code [employer] [facility] Work Phone: QRS axis, electrocardiogram 38 deg Invalid Interpretation Code [employer] [facility] Work Phone: QRS Duration 100 ms Invalid Interpretation Code [employer] [facility] Work Phone: QRS duration, electrocardiogram 100 ms Invalid Interpretation Code [employer] [facility] Work Phone: QT Interval new path ms Invalid Interpretation Code [employer] [facility] Work Phone: QT interval, electrocardiogram new path ms Invalid Interpretation Code [employer] [facility] Work Phone: T [place] 44 deg Invalid Interpretation Code [employer] [facility] Work Phone: T wave axis, electrocardiogram 44 deg Invalid Interpretation Code [employer] [facility] Work Phone: Lab Report: TSHon 01-31-2013 Thyroid stimulating hormone (TSH) 0.69 u[iU]/mL Normal 0.358-3.74 [employer] [facility] Work Phone: Lab Report: T4on 12-19-2011 Thyroxine (T4) 8.5 ug/dL Normal 4.5-12.1 [facility] Work Phone: Vital Signs Date Time Vital Sign Value Performing Clinician Gage tate 01-15-2025 11:01-0400 Body height 182.[address] 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 DO Work Phone: [facility] 01-15-2025 11:01-0400 Body mass index (BMI) [Ratio] 26 kg/m2 Dr. 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 DO Work Phone: [facility] 01-15-2025 11:01-0400 Body weight 87.[address] Jackosn Jackman DO Work Phone: [facility] 01-15-2025 11:01-0400 Diastolic blood pressure 73 mm[Hg] Dr. 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 DO Work Phone: [facility] 01-15-2025 11:01-0400 Heart rate 73 /min Dr. 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 DO Work Phone: [facility] 01-15-2025 11:01-0400 Respiratory rate 16 /min Dr. 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 DO Work Phone: [facility] 01-15-2025 11:01-0400 Systolic blood pressure 135 mm[Hg] Dr. 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 DO Work Phone: [facility] 06-05-2023 09:57-0400 Body height 182.[address] 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 Work Phone: [facility] 06-05-2023 09:57-0400 Body mass index (BMI) [Ratio] 26.3 kg/m2 Dr. 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 Work Phone: [facility] 06-05-2023 09:57-0400 Body weight 87.[address] 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 Work Phone: [facility] 06-05-2023 09:57-0400 Diastolic blood pressure 81 mm[Hg] Dr. 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 Work Phone: [facility] 06-05-2023 09:57-0400 Heart rate 53 /min Dr. 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 Work Phone: [facility] 06-05-2023 09:57-0400 Respiratory rate 16 /min Dr. 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 Work Phone: [facility] 06-05-2023 09:57-0400 Systolic blood pressure 134 mm[Hg] Dr. 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 Work Phone: [facility] 11-29-2022 11:03-0400 Body height 182.[address] 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 Work Phone: [facility] 11-29-2022 11:03-0400 Body mass index (BMI) [Ratio] 26.4 kg/m2 Dr. 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 Work Phone: [facility] 11-29-2022 11:03-0400 Body weight 88.[address] 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 Work Phone: [facility] 11-29-2022 11:03-0400 Diastolic blood pressure 75 mm[Hg] Dr. 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 Work Phone: [facility] 11-29-2022 11:03-0400 Heart rate 53 /min Dr. 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 Work Phone: [facility] 11-29-2022 11:03-0400 Respiratory rate 16 /min Dr. 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 Work Phone: [facility] 11-29-2022 11:03-0400 Systolic blood pressure 132 mm[Hg] Dr. 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 Work Phone: [facility] 04-28-2022 16:12-0400 Body height 182.[address] 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 Work Phone: [facility] Work Phone: 04-28-2022 16:12-0400 Body mass index (BMI) [Ratio] 26 kg/m2 Dr. 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 Work Phone: [facility] Work Phone: 04-28-2022 16:12-0400 Body weight 87.[address] 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 Work Phone: [facility] Work Phone: 04-28-2022 16:12-0400 Diastolic blood pressure 64 mm[Hg] Dr. 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 Work Phone: [facility] Work Phone: 04-28-2022 16:12-0400 Heart rate 52 /min Dr. 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 Work Phone: [facility] Work Phone: 04-28-2022 16:12-0400 Respiratory rate 16 /min Dr. 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 Work Phone: [facility] Work Phone: 04-28-2022 16:12-0400 Systolic blood pressure 108 mm[Hg] Dr. 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 Work Phone: [facility] Work Phone: 01-05-2017 10:28-0400 BMI (Body Mass Index) 27.94 kg/m2 [facility] Work Phone: 01-05-2017 10:28-0400 BP Diastolic 64 mm[Hg] [facility] Work Phone: 01-05-2017 10:28-0400 BP Systolic 128 mm[Hg] [facility] Work Phone: 01-05-2017 10:28-0400 Pulse (Heart Rate) 60 /min [facility] Work Phone: 01-05-2017 10:28-0400 Respiratory Rate 16 /min [facility] Work Phone: 01-05-2017 10:28-0400 Weight 93.44 kg [facility] Work Phone: 07-04-2016 15:04-0500 BMI (Body Mass Index) 28.48 kg/m2 Abdi Reyna MD [facility] Work Phone: 07-04-2016 15:04-0500 Body weight 95.26 kg Harumi DeFinis [facility] Work Phone: 07-04-2016 15:04-0500 BP Diastolic 74 mm[Hg] Abdi Reyna MD [facility] Work Phone: 07-04-2016 15:04-0500 BP Systolic 108 mm[Hg] Abdi Reyna MD [facility] Work Phone: 07-04-2016 15:04-0500 BSA (Body Surface Area) 2.18 m2 Abdi Reyna MD [facility] Work Phone: 07-04-2016 15:04-0500 Pulse (Heart Rate) 60 /min [facility] Work Phone: 07-04-2016 15:04-0500 Respiratory Rate 16 /min Abdi Reyna MD [facility] Work Phone: 07-04-2016 15:04-0500 Weight 95.26 kg Abdi Reyna MD [facility] Work Phone: 07-22-2015 10:45-0500 Body Temperature 98.1 [degF] Abdi Reyna MD [facility] Work Phone: 07-22-2015 10:45-0500 Pulse Oximetry 97 % Abdi Reyna MD [facility] Work Phone: 05-07-2014 15:37-0400 Heart rate 53 /min Harumi DeFinis [facility] Work Phone: 05-07-2014 15:37-0400 Heart rate 436 ms Harumi DeFinis [facility] Work Phone: 06-07-2013 13:49-0400 Height 182.88 cm Abdi Reyna MD [facility] Work Phone: Encounters Encounter Date Encounter Type Care Provider Facility Start: 05-21-2025 ambulatory Corona Webster Faci lity:[facility] Start: 02-17-2025 End: 02-17-[address] 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 DO Work Phone: -Radiology [facility] Start: 02-17-2025 End: 02-17-[address] 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 DO -Radiology [facility] Work Phone: Start: 02-17-2025 End: 02-17-2025 ambulatory 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 Facility:[facility] Start: 01-15-2025 End: 01-15-[address] 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 DO Work Phone: [facility] Work Phone: Start: 01-15-2025 End: 01-15-2025 Patient encounter procedure Tres WEAVER -[facility] Work Phone: Start: 01-13-2025 End: 01-13-[address] 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 DO Work Phone: [facility] Work Phone: Start: 01-13-2025 End: 01-13-2025 Patient encounter procedure Terri Lowe PA -Laboratory Work Phone: Start: 01-13-2025 End: 01-13-2025 ambulatory 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 Facility:[facility] Start: 07-17-2024 End: 07-17-2024 ambulatory Vin Doe Facility:[facility] Start: 07-16-2024 End: 07-16-2024 ambulatory 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 Facility:[facility] Start: 07-12-2024 End: 07-12-2024 ambulatory 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 Facility:[facility] Start: 06-18-2024 End: 06-18-2024 ambulatory Corona Webster Facility:[facility] Start: 06-19-2023 End: 06-19-[address] 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 Work Phone: [facility] Work Phone: Start: 06-19-2023 End: 06-19-[address] 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 Work [facility]: Start: 06-13-2023 End: 06-13-[address] 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 Work Phone: [facility] Work Phone: Start: 06-13-2023 End: 06-13-[address] 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 Start: 06-05-2023 End: 06-05-[address] 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 Work Phone: [facility] Work Phone: Start: 05-29-2023 End: 05-29-2023 ambulatory [facility] Work Phone: Start: 05-29-2023 End: 05-29-2023 [facility] Start: 11-29-2022 End: 11-29-[address] 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 Work Phone: [facility] Start: 11-25-2022 End: 11-25-[address] 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 Work Phone: [facility] Work Phone: Start: 11-25-2022 End: 11-25-[address] 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 Start: 06-13-2022 End: 06-13-[address] 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 Work Phone: [facility] Work Phone: Start: 06-13-2022 End: 06-13-[address] 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 Work Phone: [facility] Start: 06-07-2022 End: 06-07-[address] 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 Work Phone: [facility] Start: 04-28-2022 End: 04-28-[address] 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 Work Phone: [facility] Start: 04-25-2022 End: 04-25-[address] 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 Date Procedure Procedure Detail Performing Clinician Start: 02-17-2025 X-ray of knee, four or more views [address] 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 DO Work Phone: Start: 06-23-2017 End: 06-23-2017 *Hepatic Function Panel Abdi Reyna MD Start: 06-23-2017 End: 06-23-2017 Lipid 1996 panel - Serum or Plasma Abdi Reyna MD Start: 01-05-2017 End: 01-05-2017 Device Interrogation Abdi Reyna MD Start: 01-05-2017 End: 01-05-2017 Follow Up Appt 6 months Abdi Reyna MD Start: 01-05-2017 End: 01-05-2017 MMM Abdi Reyna MD Start: 01-05-2017 End: 01-30-2017 Prgrmg eval implantable in prsn dual lead dfb Abdi Reyna MD Start: 01-05-2017 End: 01-05-2017 Dietary management education, guidance, and counseling Blanca Nur RN Start: 01-05-2017 End: 01-05-2017 Device Interrogation Abdi Reyna MD Start: 01-05-2017 End: 01-05-2017 Follow Up Appt 6 months Abdi Reyna MD Start: 01-05-2017 End: 01-30-2017 Icd device progr eval, dual Abdi Reyna MD Start: 01-05-2017 End: 01-05-2017 MMM Abdi Reyna MD Start: 12-26-2016 End: 12-26-2016 *Hepatic Function Panel Terri Lowe PA-C Work Phone: Start: 12-26-2016 End: 12-26-2016 Lipid 1996 panel - Serum or Plasma Terri Lowe PA-C Work Phone: Start: 12-26-2016 End: 12-26-2016 *Hepatic Function Panel Terri Lowe PA-C Work Phone: Start: 12-26-2016 End: 12-26-2016 Lipid panel [AGGREGATE] Terri Lowe PA-C Work Phone: Start: 07-04-2016 End: 07-04-2016 Dietary management education, guidance, and counseling Swapna Santana Start: 07-04-2016 End: 07-04-2016 Documentation of current medications Swapna Santana Start: 07-04-2016 End: 01-05-2017 Follow Up Appt 6 months Abdi Reyna MD Start: 07-04-2016 End: 01-05-2017 Pacer Clinic Abdi Reyna MD Start: 07-04-2016 End: 07-04-2016 PFM Abdi Reyna MD Start: 07-04-2016 End: 07-04-2016 Prgrmng dev eval implantable in persn 1 ld dfb Abdi Reyna MD Start: 07-04-2016 End: 01-05-2017 Follow Up Appt 6 months Abdi Reyna MD Start: 07-04-2016 End: 07-04-2016 Icd device prog eval, 1 sngl Abdi Reyna MD Start: 07-04-2016 End: 01-05-2017 Pacer Clinic Abdi Reyna MD Start: 07-04-2016 End: 07-04-2016 PFM Abdi Reyna MD Start: 06-16-2016 End: 06-22-2016 *Hepatic Function Panel Abdi Reyna MD Start: 06-16-2016 End: 06-22-2016 Lipid 1996 panel - Serum or Plasma Abdi Reyna MD Start: 06-16-2016 End: 06-22-2016 *Hepatic Function Panel Abdi Reyna MD Start: 06-16-2016 End: 06-22-2016 Lipid panel [AGGREGATE] Abdi Reyna MD Start: 12-18-2015 End: 01-05-2017 *Hepatic Function Panel Abdi Reyna MD Start: 12-18-2015 End: 01-05-2017 Device Interrogation Abdi Reyna MD Start: 12-18-2015 End: 07-04-2016 Follow Up Appt 3 months Abdi Reyna MD Start: 12-18-2015 End: 12-18-2015 Follow Up Appt 6 months Abdi Reyna MD Start: 12-18-2015 End: 01-05-2017 Lipid 1996 panel - Serum or Plasma Abdi Reyna MD Start: 12-18-2015 End: 07-04-2016 Pacer Clinic Abdi Reyna MD Start: 12-18-2015 End: 12-18-2015 PFM Abdi Reyna MD Start: 12-18-2015 End: 12-27-2015 Prgrmng dev eval implantable in persn 1 ld dfb Abdi Reyna MD Start: 12-18-2015 End: 01-05-2017 *Hepatic Function Panel Abdi Reyna MD Start: 12-18-2015 End: 01-05-2017 Device Interrogation Abdi Reyna MD Start: 12-18-2015 End: 07-04-2016 Follow Up Appt 3 months Abdi Reyna MD Start: 12-18-2015 End: 12-18-2015 Follow Up Appt 6 months Abdi Reyna MD Start: 12-18-2015 End: 12-27-2015 Icd device prog eval, 1 sngl Abdi Reyna MD Start: 12-18-2015 End: 01-05-2017 Lipid panel [AGGREGATE] Abdi Reyna MD Start: 12-18-2015 End: 07-04-2016 Pacer Clinic Abdi Reyna MD Start: 12-18-2015 End: 12-18-2015 PFM Abdi Reyna MD Start: 12-08-2015 End: 12-16-2015 *Hepatic Function Panel Abdi Reyna MD Start: 12-08-2015 End: 12-16-2015 Lipid 1996 panel - Serum or Plasma Abdi Reyna MD Start: 12-08-2015 End: 12-16-2015 *Hepatic Function Panel Abdi Reyna MD Start: 12-08-2015 End: 12-16-2015 Lipid panel [AGGREGATE] Abdi Reyna MD Start: 11-26-2015 End: 11-27-2015 Referral to tool and die repairer 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 DO Work Phone: Start: 11-26-2015 End: 01-05-2017 Referral to tool and die repairer 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 DO Work Phone: Start: 07-22-2015 End: 07-25-2015 Adult health examination Well adult exam Swapna Santana Start: 06-12-2015 End: 12-15-2015 *Hepatic Function Panel Abdi Reyna MD Start: 06-12-2015 End: 06-12-2015 Device Interrogation Abdi Reyna MD Start: 06-12-2015 End: 06-13-2015 Documentation of current medications Abdi Reyna MD Start: 06-12-2015 End: 01-05-2017 Follow Up Appt 6 months Abdi Reyna MD Start: 06-12-2015 End: 12-15-2015 Lipid 1996 panel - Serum or Plasma Abdi Reyna MD Start: 06-12-2015 End: 01-05-2017 Pacer Clinic Abdi Reyna MD Start: 06-12-2015 End: 06-12-2015 PFM Abdi Reyna MD Start: 06-12-2015 End: 06-12-2015 Prgrmng dev eval implantable in persn 1 ld dfb Abdi Reyna MD Start: 06-12-2015 End: 12-15-2015 *Hepatic Function Panel Abdi Reyna MD Start: 06-12-2015 End: 06-12-2015 Device Interrogation Abdi Reyna MD Start: 06-12-2015 End: 06-13-2015 Documentation of current medications Abdi Reyna MD Start: 06-12-2015 End: 01-05-2017 Follow Up Appt 6 months Abdi Reyna MD Start: 06-12-2015 End: 06-12-2015 Icd device prog eval, 1 sngl Abdi Reyna MD Start: 06-12-2015 End: 12-15-2015 Lipid panel [AGGREGATE] Abdi Reyna MD Start: 06-12-2015 End: 01-05-2017 Pacer Clinic Abdi Reyna MD Start: 06-12-2015 End: 06-12-2015 PFM Abdi Reyna MD Start: 05-29-2015 End: 06-09-2015 *Hepatic Function Panel Abdi Reyna MD Start: 05-29-2015 End: 06-09-2015 Lipid 1996 panel - Serum or Plasma Abdi Reyna MD Start: 05-29-2015 End: 06-09-2015 *Hepatic Function Panel Abdi Reyna MD Start: 05-29-2015 End: 06-09-2015 Lipid panel [AGGREGATE] Abdi Reyna MD Start: 12-05-2014 End: 12-06-2014 Documentation of current medications Abdi Reyna MD Start: 12-05-2014 End: 12-05-2014 Follow Up Appt 6 months Abdi Reyna MD Start: 12-05-2014 End: 12-05-2014 PFM Abdi Reyna MD Start: 12-05-2014 End: 12-06-2014 Documentation of current medications Abdi Reyna MD Start: 12-05-2014 End: 12-05-2014 Follow Up Appt 6 months Abdi Reyna MD Start: 12-05-2014 End: 12-05-2014 PFM Abdi Reyna MD Start: 10-29-2014 End: 12-05-2014 Follow Up Appt 6 months Abdi Reyna MD Start: 10-29-2014 End: 12-05-2014 Pacer Clinic Abdi Reyna MD Start: 10-29-2014 End: 10-30-2014 Prgrmng dev eval implantable in persn 1 ld dfb Abdi Reyna MD Start: 10-29-2014 End: 12-05-2014 Follow Up Appt 6 months Abdi Reyna MD Start: 10-29-2014 End: 10-30-2014 Icd device prog eval, 1 sngl Abdi Reyna MD Start: 10-29-2014 End: 12-05-2014 Pacer Clinic Abdi Reyna MD Start: 09-25-2014 End: 01-05-2017 Surgery Referral Tony Blandon MD Start: 09-25-2014 End: 07-22-2015 Screening for malignant neoplasm of colon Colon cancer screening Swapna Santana Start: 09-25-2014 End: 01-05-2017 Surgery Referral Tony Blandon MD Start: 05-07-2014 End: 05-07-2014 Ecg routine ecg w/least 12 lds w/i&r Abdi Reyna MD Start: 05-07-2014 End: 01-05-2017 Echocardiography Abdi Reyna MD Start: 05-07-2014 End: 01-05-2017 Follow Up Appt 6 months Abdi Reyna MD Start: 05-07-2014 End: 01-05-2017 PFM Abdi Reyna MD Start: 05-07-2014 End: 01-05-2017 Echocardiography Abdi Reyna MD Start: 05-07-2014 End: 05-07-2014 Electrocardiogram, complete Abdi Reyna MD Start: 05-07-2014 End: 01-05-2017 Follow Up Appt 6 months Abdi Reyna MD Start: 05-07-2014 End: 01-05-2017 PFM Abdi Reyna MD Start: 05-07-2014 End: 07-22-2015 Preoperative cardiovascular examination PRE-OPERATIVE CARDIOVASCULAR EXAMINATION Swapna Santana Start: 12-25-2013 End: 12-25-2013 Device Interrogation Abdi Reyna MD Start: 12-25-2013 End: 12-25-2013 Follow Up Appt 3 months Abdi Reyna MD Start: 12-25-2013 End: 12-25-2013 Follow Up Appt 6 months Abdi Reyna MD Start: 12-25-2013 End: 12-25-2013 Pacer Clinic Abdi Reyna MD Start: 12-25-2013 End: 12-25-2013 PFM Abdi Reyna MD Start: 12-25-2013 End: 12-25-2013 Prgrmng dev eval implantable in persn 1 ld dfb Abdi Reyna MD Start: 12-25-2013 End: 12-25-2013 Device Interrogation Abdi Reyna MD Start: 12-25-2013 End: 12-25-2013 Follow Up Appt 3 months Adbi Reyna MD Start: 12-25-2013 End: 12-25-2013 Follow Up Appt 6 months Abdi Reyna MD Start: 12-25-2013 End: 12-25-2013 Icd device prog eval, 1 sngl Abdi Reyna MD Start: 12-25-2013 End: 12-25-2013 Pacer Clinic Abdi Reyna MD Start: 12-25-2013 End: 12-25-2013 PFM Abdi Reyna MD Start: 12-23-2013 End: 06-25-2014 *Hepatic Function Panel Abdi Reyna MD Start: 12-23-2013 End: 06-25-2014 Lipid 1996 panel - Serum or Plasma Abdi Reyna MD Start: 12-23-2013 End: 06-25-2014 *Hepatic Function Panel Abdi Reyna MD Start: 12-23-2013 End: 06-25-2014 Lipid panel [AGGREGATE] Abdi Reyna MD Start: 11-05-2013 End: 12-23-2013 *Hepatic Function Panel Abdi Reyna MD Start: 11-05-2013 End: 12-23-2013 Lipid 1996 panel - Serum or Plasma Abdi Reyna MD Start: 11-05-2013 End: 12-23-2013 *Hepatic Function Panel Abdi Reyna MD Start: 11-05-2013 End: 12-23-2013 Lipid panel [AGGREGATE] Abdi Reyna MD Start: 08-08-2013 End: 08-08-2014 ENT referral Tony Blandon MD Start: 08-08-2013 End: 08-08-2014 Urology Referral Tony Blandon MD Start: 08-08-2013 End: 08-08-2014 ENT referral Tony Blandon MD Start: 08-08-2013 End: 08-08-2014 Urology Referral Tony Blandon MD Start: 06-07-2013 End: 12-23-2013 *Hepatic Function Panel Abdi Reyna MD Start: 06-07-2013 End: 01-05-2017 Follow Up Appt 3 months Abdi Reyna MD Start: 06-07-2013 End: 01-05-2017 Follow Up Appt 6 months Abdi Reyna MD Start: 06-07-2013 End: 12-23-2013 Lipid 1996 panel - Serum or Plasma Abdi Reyna MD Start: 06-07-2013 End: 01-05-2017 Pacer Clinic Abdi Reyna MD Start: 06-07-2013 End: 01-05-2017 PFM Abdi Reyna MD Start: 06-07-2013 End: 06-07-2013 Prgrmng dev eval implantable in persn 1 ld dfb Abdi Reyna MD Start: 06-07-2013 End: 12-23-2013 *Hepatic Function Panel Abdi Reyna MD Start: 06-07-2013 End: 01-05-2017 Follow Up Appt 3 months Abdi Reyna MD Start: 06-07-2013 End: 01-05-2017 Follow Up Appt 6 months Abdi Reyna MD Start: 06-07-2013 End: 06-07-2013 Icd device prog eval, 1 sngl Abdi Reyna MD Start: 06-07-2013 End: 12-23-2013 Lipid panel [AGGREGATE] Abdi Reyna MD Start: 06-07-2013 End: 01-05-2017 Pacer Clinic Abdi Reyna MD Start: 06-07-2013 End: 01-05-2017 PFM Abdi Reyna MD Start: 05-31-2013 End: 05-31-2014 Cardiac Referral Tony Blandon MD Start: 05-31-2013 End: 05-31-2014 Cardiac Referral Tony Blandon MD Start: 03-07-2013 End: 06-06-2013 *Hepatic Function Panel Abdi Reyna MD Start: 03-07-2013 End: 06-06-2013 Lipid 1996 panel - Serum or Plasma Abdi Reyna MD Start: 03-07-2013 End: 06-06-2013 *Hepatic Function Panel Abdi Reyna MD Start: 03-07-2013 End: 06-06-2013 Lipid panel [AGGREGATE] Abdi Reyna MD Start: 02-13-2013 End: 02-27-2013 Surgery Referral Tony Blandon MD Start: 02-13-2013 End: 02-27-2013 Surgery Referral Tony Blandon MD Start: 01-31-2013 End: 01-31-2013 *ROSALVA Blandon MD Start: 01-31-2013 End: 01-31-2013 CBC W Auto Differential panel - Blood Tony Blandon MD Start: 01-31-2013 End: 02-20-2013 Surgery Referral Tony Blandon MD Start: 01-31-2013 End: 01-31-2013 Thyrotropin [Units/volume] in Serum or Plasma Tony Blandon MD Start: 01-31-2013 End: 01-31-2013 *ROSALVA Blandon MD Start: 01-31-2013 End: 01-31-2013 CBC W Auto Differential panel - Blood Tony Blandon MD Start: 01-31-2013 End: 02-20-2013 Surgery Referral Tony Blandon MD Start: 01-31-2013 End: 01-31-2013 Thyroid stimulating hormone (TSH) Tony Blandon MD Start: 12-27-2012 End: 01-05-2017 Follow Up Appt 3 months Abdi Reyna MD Start: 12-27-2012 End: 12-27-2012 Follow Up Appt 6 months Abdi Reyna MD Start: 12-27-2012 End: 01-05-2017 Pacer Clinic Abdi Reyna MD Start: 12-27-2012 End: 12-27-2012 PFM Abdi Reyna MD Start: 12-27-2012 End: 12-27-2012 Prgrmng dev eval implantable in persn 1 ld dfb Abdi Reyna MD Start: 12-27-2012 End: 01-05-2017 Follow Up Appt 3 months Abdi Reyna MD Start: 12-27-2012 End: 12-27-2012 Follow Up Appt 6 months Abdi Reyna MD Start: 12-27-2012 End: 12-27-2012 Icd device prog eval, 1 sngl Abdi Reyna MD Start: 12-27-2012 End: 01-05-2017 Pacer Clinic Abdi Reyna MD Start: 12-27-2012 End: 12-27-2012 PF Abdi Reyna MD Start: 06-08-2012 End: 01-05-2017 *Hepatic Function Panel Abdi Reyna MD Start: 06-08-2012 End: 06-08-2012 Follow Up Appt 6 months Abdi Reyna MD Start: 06-08-2012 End: 01-05-2017 Lipid 1996 panel - Serum or Plasma Abdi Reyna MD Start: 06-08-2012 End: 06-08-2012 Follow Up Appt 6 months Abdi Reyna MD Start: 06-07-2012 End: 01-05-2017 *Hepatic Function Panel Abdi Reyna MD Start: 06-07-2012 End: 01-05-2017 Lipid panel [AGGREGATE] Abdi Reyna MD Start: 06-07-2012 End: 09-19-2012 *Hepatic Function Panel Abdi Reyna MD Start: 06-07-2012 End: 09-19-2012 Lipid panel [AGGREGATE] Abdi Reyna MD Start: 05-30-2012 End: 05-30-2013 Cardiac Referral Tony Blandon MD Start: 05-30-2012 End: 05-30-2013 Cardiac Referral Tony Blandon MD Start: 02-27-2012 End: 02-26-2013 Infectious Disease Tony Blandon MD Start: 02-27-2012 End: 02-26-2013 Infectious Disease Tony Blandon MD Start: 02-20-2012 End: 02-21-2012 Follow Up as scheduled Tony Blandon MD Start: 02-20-2012 End: 02-21-2012 Follow Up as scheduled Tony Blandon MD Start: 01-16-2012 End: 01-16-2012 Follow Up as scheduled Tony Blandon MD Start: 01-16-2012 End: 04-14-2014 Surgery Referral Tony Blandon MD Start: 01-16-2012 End: 01-16-2012 Follow Up as scheduled Tony Blandon MD Start: 01-16-2012 End: 04-14-2014 Surgery Referral Tony Blandon MD Start: 11-25-2011 End: 01-05-2017 *BMP Abdi Reyna MD Start: 11-25-2011 End: 01-05-2017 *CBC with Differential Abdi Reyna MD Start: 11-25-2011 End: 11-25-2011 Device Interrogation Abdi Reyna MD Start: 11-25-2011 End: 11-25-2011 Ecg routine ecg w/least 12 lds w/i&r Abdi Reyna MD Start: 11-25-2011 End: 01-05-2017 Echocardiography Abdi Reyna MD Start: 11-25-2011 End: 11-25-2011 Follow Up Appt 6 months Abdi Reyna MD Start: 11-25-2011 End: 01-05-2017 Nuclear stress test -adenosine Abdi Reyna MD Start: 11-25-2011 End: 01-05-2017 Thyrotropin [Units/volume] in Serum or Plasma Abdi Reyna MD Start: 11-25-2011 End: 01-05-2017 Thyroxine (T4) [Mass/volume] in Serum or Plasma Abdi Reyna MD Start: 11-25-2011 End: 01-05-2017 *BMP Abdi Reyna MD Start: 11-25-2011 End: 01-05-2017 *CBC with Differential Abdi Reyna MD Start: 11-25-2011 End: 11-25-2011 Device Interrogation Abdi Reyna MD Start: 11-25-2011 End: 01-05-2017 Echocardiography Abdi Reyna MD Start: 11-25-2011 End: 11-25-2011 Electrocardiogram, complete Abdi Reyna MD Start: 11-25-2011 End: 11-25-2011 Follow Up Appt 6 months Abdi Reyna MD Start: 11-25-2011 End: 01-05-2017 Nuclear stress test -adenosine Abdi Reyna MD Start: 11-25-2011 End: 01-05-2017 Thyroid stimulating hormone (TSH) Abdi Reyna MD Start: 11-25-2011 End: 01-05-2017 Thyroxine (T4) Abdi Reyna MD Start: 09-16-2011 End: 09-16-2011 Follow Up Appt 6 months Tony Blandon MD Start: 09-16-2011 End: 09-16-2011 Follow Up Appt 6 months Tony Blandon MD Start: 06-15-2011 End: 06-15-2011 Follow Up Appt 3 months Tony Blandon MD Start: 06-15-2011 End: 06-15-2011 Follow Up Appt 3 months Tony Blandon MD Start: 05-06-2011 End: 05-05-2012 Cardiac Referral Tony Blandon MD Start: 05-06-2011 End: 05-05-2012 Cardiac Referral Tony Blandon MD Start: 04-04-2011 Implantation of auto matic cardiac defibrillator IMPLANTATION OF DEFIBRILLATOR, HX OF Swapna Santana Start: 01-10-2011 End: 06-15-2011 Follow Up Appt 6 months Tony Blandon MD Start: 01-10-2011 End: 06-15-2011 Follow Up Appt 6 months Tony Blandon MD Start: 08-07-2001 History of placement of stent for coronary artery disease History of coronary artery stent placement Dr. 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 Work Phone: Comment on above: PTCA/stent of the RC A 12/2001; Plan of Treatment Date Care Activity Detail Author Start: 12-21-2017 End: 06-23-2017 *Hepatic Function Panel *Hepatic Function Panel [facility] Work Phone: Start: 12-21-2017 End: 06-23-2017 Lipid panel [AGGREGATE] *Lipid Profile CC PCP [facility] Work Phone: Start: 07-12-2017 End: 07-12-2017 Appointment Appointment [facility] Work Phone: Start: 07-12-2017 End: 07-12-2017 Appointment Appointment [facility] Work Phone: Start: 06-28-2017 End: 06-23-2017 *Hepatic Function Panel *Hepatic Function Panel [facility] Work Phone: Start: 06-28-2017 End: 06-23-2017 Lipid panel [AGGREGATE] *Lipid Profile CC PCP [facility] Work Phone: Start: 06-28-2017 End: 01-10-2017 *Hepatic Function Panel *Hepatic Function Panel [facility] Work Phone: Start: 06-28-2017 End: 01-10-2017 Lipid panel [AGGREGATE] *Lipid Profile CC PCP [facility] Work Phone: Start: 01-05-2017 End: 01-05-2017 Device Interrogation Device Interrogation [facility] Work Phone: Start: 01-05-2017 End: 01-30-2017 Follow Up Appt 3 months Follow Up Appt 3 months [facility] Work Phone: Start: 01-05-2017 End: 01-05-2017 Follow Up Appt 6 months Follow Up Appt 6 months [facility] Work Phone: Start: 01-05-2017 End: 01-05-2017 MMM MMM [facility] Work Phone: Start: 01-05-2017 End: 01-30-2017 Pacer Clinic Pacer Clinic [facility] Work Phone: Start: 01-05-2017 End: 01-05-2017 Appointment Appointment [facility] Work Phone: Start: 01-05-2017 End: 01-05-2017 Appointment Appointment [facility] Work Phone: Start: 01-05-2017 End: 01-05-2017 Device Interrogation Device Interrogation [facility] Work Phone: Start: 01-05-2017 End: 01-30-2017 Follow Up Appt 3 months Follow Up Appt 3 months [facility] Work Phone: Start: 01-05-2017 End: 01-05-2017 Follow Up Appt 6 months Follow Up Appt 6 months [facility] Work Phone: Start: 01-05-2017 End: 01-05-2017 MMM MMM [facility] Work Phone: Start: 01-05-2017 End: 01-30-2017 Pacer Clinic Pacer Clinic [facility] Work Phone: Start: 12-26-2016 End: 12-26-2016 *Hepatic Function Panel *Hepatic Function Panel [facility] Work Phone: Start: 12-26-2016 End: 12-26-2016 Lipid panel [AGGREGATE] *Lipid Profile CC PCP [facility] Work Phone: Start: 12-26-2016 End: 12-26-2016 *Hepatic Function Panel *Hepatic Function Panel [facility] Work Phone: Start: 12-26-2016 End: 12-26-2016 Lipid panel [AGGREGATE] *Lipid Profile CC PCP [facility] Work Phone: Start: 07-04-2016 End: 01-05-2017 Follow Up Appt 6 months Follow Up Appt 6 months [facility] Work Phone: Start: 07-04-2016 End: 01-05-2017 Pacer Clinic Pacer Clinic [facility] Work Phone: Start: 07-04-2016 End: 07-04-2016 PFM PFM [facility] Work Phone: Start: 07-04-2016 End: 01-05-2017 Follow Up Appt 6 months Follow Up Appt 6 months [facility] Work Phone: Start: 07-04-2016 End: 01-05-2017 Pacer Clinic Pacer Clinic [facility] Work Phone: Start: 07-04-2016 End: 07-04-2016 PFM PFM [facility] Work Phone: Start: 06-16-2016 End: 06-22-2016 *Hepatic Function Panel *Hepatic Function Panel [facility] Work Phone: Start: 06-16-2016 End: 06-22-2016 Lipid panel [AGGREGATE] *Lipid Profile CC PCP [facility] Work Phone: Start: 06-16-2016 End: 06-22-2016 *Hepatic Function Panel *Hepatic Function Panel [facility] Work Phone: Start: 06-16-2016 End: 06-22-2016 Lipid panel [AGGREGATE] *Lipid Profile CC PCP [facility] Work Phone: Start: 12-18-2015 End: 01-05-2017 *Hepatic Function Panel *Hepatic Function Panel [facility] Work Phone: Start: 12-18-2015 End: 01-05-2017 Device Interrogation Device Interrogation [facility] Work Phone: Start: 12-18-2015 End: 07-04-2016 Follow Up Appt 3 months Follow Up Appt 3 months [facility] Work Phone: Start: 12-18-2015 End: 12-18-2015 Follow Up Appt 6 months Follow Up Appt 6 months [facility] Work Phone: Start: 12-18-2015 End: 01-05-2017 Lipid panel [AGGREGATE] *Lipid Profile CC PCP [facility] Work Phone: Start: 12-18-2015 End: 07-04-2016 Pacer Clinic Pacer Clinic [facility] Work Phone: Start: 12-18-2015 End: 12-18-2015 PFM PFM [facility] Work Phone: Start: 12-18-2015 End: 01-05-2017 *Hepatic Function Panel *Hepatic Function Panel [facility] Work Phone: Start: 12-18-2015 End: 01-05-2017 Device Interrogation Device Interrogation [facility] Work Phone: Start: 12-18-2015 End: 07-04-2016 Follow Up Appt 3 months Follow Up Appt 3 months [facility] Work Phone: Start: 12-18-2015 End: 12-18-2015 Follow Up Appt 6 months Follow Up Appt 6 months [facility] Work Phone: Start: 12-18-2015 End: 01-05-2017 Lipid panel [AGGREGATE] *Lipid Profile CC PCP [facility] Work Phone: Start: 12-18-2015 End: 07-04-2016 Pacer Clinic Pacer Clinic [facility] Work Phone: Start: 12-18-2015 End: 12-18-2015 PFM PFM [facility] Work Phone: Start: 12-08-2015 End: 12-16-2015 *Hepatic Function Panel *Hepatic Function Panel [facility] Work Phone: Start: 12-08-2015 End: 12-16-2015 Lipid panel [AGGREGATE] *Lipid Profile CC PCP [facility] Work Phone: Start: 12-08-2015 End: 12-16-2015 *Hepatic Function Panel *Hepatic Function Panel [facility] Work Phone: Start: 12-08-2015 End: 12-16-2015 Lipid panel [AGGREGATE] *Lipid Profile CC PCP [facility] Work Phone: Start: 11-26-2015 End: 12-02-2015 Ophthalmology Referral Ophthalmology Referral Jacobo Ford, [address] [place] [address], [place], [address] [facility] Work Phone: Start: 11-26-2015 End: 12-02-2015 Ophthalmology Referral Ophthalmology Referral Jacobo Ford, [address] [place], [address] [facility] Work Phone: Start: 06-12-2015 End: 12-15-2015 *Hepatic Function Panel *Hepatic Function Panel [facility] Work Phone: Start: 06-12-2015 End: 06-12-2015 Device Interrogation Device Interrogation [facility] Work Phone: Start: 06-12-2015 End: 01-05-2017 Follow Up Appt 6 months Follow Up Appt 6 months [facility] Work Phone: Start: 06-12-2015 End: 12-15-2015 Lipid panel [AGGREGATE] *Lipid Profile CC PCP [facility] Work Phone: Start: 06-12-2015 End: 01-05-2017 Pacer Clinic Pacer Clinic [facility] Work Phone: Start: 06-12-2015 End: 06-12-2015 PFM PFM [facility] Work Phone: Start: 06-12-2015 End: 12-15-2015 *Hepatic Function Panel *Hepatic Function Panel [facility] Work Phone: Start: 06-12-2015 End: 06-12-2015 Device Interrogation Device Interrogation [facility] Work Phone: Start: 06-12-2015 End: 01-05-2017 Follow Up Appt 6 months Follow Up Appt 6 months [facility] Work Phone: Start: 06-12-2015 End: 12-15-2015 Lipid panel [AGGREGATE] *Lipid Profile CC PCP [facility] Work Phone: Start: 06-12-2015 End: 01-05-2017 Pacer Clinic Pacer Clinic [facility] Work Phone: Start: 06-12-2015 End: 06-12-2015 PFM PFM [facility] Work Phone: Start: 05-29-2015 End: 06-09-2015 *Hepatic Function Panel *Hepatic Function Panel [facility] Work Phone: Start: 05-29-2015 End: 06-09-2015 Lipid panel [AGGREGATE] *Lipid Profile CC PCP [facility] Work Phone: Start: 05-29-2015 End: 06-09-2015 *Hepatic Function Panel *Hepatic Function Panel [facility] Work Phone: Start: 05-29-2015 End: 06-09-2015 Lipid panel [AGGREGATE] *Lipid Profile CC PCP [facility] Work Phone: Start: 12-05-2014 End: 12-05-2014 Follow Up Appt 6 months Follow Up Appt 6 months [facility] Work Phone: Start: 12-05-2014 End: 12-05-2014 PFM PF [facility] Work Phone: Start: 12-05-2014 End: 12-05-2014 Follow Up Appt 6 months Follow Up Appt 6 months [facility] Work Phone: Start: 12-05-2014 End: 12-05-2014 PFM PFM [facility] Work Phone: Start: 10-29-2014 End: 12-05-2014 Follow Up Appt 6 months Follow Up Appt 6 months [facility] Work Phone: Start: 10-29-2014 End: 12-05-2014 Pacer Clinic Pacer Clinic [facility] Work Phone: Start: 10-29-2014 End: 12-05-2014 Follow Up Appt 6 months Follow Up Appt 6 months [facility] Work Phone: Start: 10-29-2014 End: 12-05-2014 Pacer Clinic Pacer Clinic [facility] Work Phone: Start: 09-25-2014 End: 09-25-2014 Surgery Referral Surgery Referral Rakan Lopez [address] [facility], [address], [place], [address] [facility] Work Phone: Start: 09-25-2014 End: 09-25-2014 Surgery Referral Surgery Referral Rakan Lopez, [facility], [address], [place], [address] [facility] Work Phone: Start: 05-07-2014 End: 05-07-2014 Ecg routine ecg w/least 12 lds w/i&r EKG (In office) [facility] Work Phone: Start: 05-07-2014 End: 05-07-2014 Echocardiography Echocardiogram (complete) [facility] Work Phone: Start: 05-07-2014 End: 01-05-2017 Follow Up Appt 6 months Follow Up Appt 6 months [facility] Work Phone: Start: 05-07-2014 End: 01-05-2017 PFM PFM [facility] Work Phone: Start: 05-07-2014 End: 05-07-2014 Echocardiography Echocardiogram (complete) [facility] Work Phone: Start: 05-07-2014 End: 05-07-2014 Electrocardiogram, complete EKG (In office) [facility] Work Phone: Start: 05-07-2014 End: 01-05-2017 Follow Up Appt 6 months Follow Up Appt 6 months [facility] Work Phone: Start: 05-07-2014 End: 01-05-2017 PFM PFM [facility] Work Phone: Start: 12-25-2013 End: 12-25-2013 Device Interrogation Device Interrogation [facility] Work Phone: Start: 12-25-2013 End: 12-25-2013 Follow Up Appt 3 months Follow Up Appt 3 months [facility] Work Phone: Start: 12-25-2013 End: 12-25-2013 Follow Up Appt 6 months Follow Up Appt 6 months [facility] Work Phone: Start: 12-25-2013 End: 12-25-2013 Pacer Clinic Pacer Clinic [facility] Work Phone: Start: 12-25-2013 End: 12-25-2013 PFM PFM [facility] Work Phone: Start: 12-25-2013 End: 12-25-2013 Device Interrogation Device Interrogation [facility] Work Phone: Start: 12-25-2013 End: 12-25-2013 Follow Up Appt 3 months Follow Up Appt 3 months [facility] Work Phone: Start: 12-25-2013 End: 12-25-2013 Follow Up Appt 6 months Follow Up Appt 6 months [facility] Work Phone: Start: 12-25-2013 End: 12-25-2013 Pacer Clinic Pacer Clinic [facility] Work Phone: Start: 12-25-2013 End: 12-25-2013 PFM PFM [facility] Work Phone: Start: 12-23-2013 End: 11-26-2014 *Hepatic Function Panel *Hepatic Function Panel [facility] Work Phone: Start: 12-23-2013 End: 11-26-2014 Lipid panel [AGGREGATE] *Lipid Profile CC PCP [facility] Work Phone: Start: 12-23-2013 End: 11-26-2014 *Hepatic Function Panel *Hepatic Function Panel [facility] Work Phone: Start: 12-23-2013 End: 11-26-2014 Lipid panel [AGGREGATE] *Lipid Profile CC PCP [facility] Work Phone: Start: 11-05-2013 End: 12-23-2013 *Hepatic Function Panel *Hepatic Function Panel [facility] Work Phone: Start: 11-05-2013 End: 12-23-2013 Lipid panel [AGGREGATE] *Lipid Profile CC PCP [facility] Work Phone: Start: 11-05-2013 End: 12-23-2013 *Hepatic Function Panel *Hepatic Function Panel [facility] Work Phone: Start: 11-05-2013 End: 12-23-2013 Lipid panel [AGGREGATE] *Lipid Profile CC PCP [facility] Work Phone: Start: 08-08-2013 End: 04-14-2014 ENT referral ENT referral Dilshad Mackler, [address] [facility], [place], [address] [facility] Work Phone: Start: 08-08-2013 End: 08-21-2013 Urology Referral Urology Referral Corona Webster, [address] [facility], [address], [place], [address] [facility] Work Phone: Start: 08-08-2013 End: 04-14-2014 ENT referral ENT referral Dilshad Winston, [address] [facility], [place], [address] [facility] Work Phone: Start: 08-08-2013 End: 08-21-2013 Urology Referral Urology Referral Corona Webster, [address] [facility], [address], [place], [address] [facility] Work Phone: Start: 06-07-2013 End: 12-23-2013 *Hepatic Function Panel *Hepatic Function Panel [facility] Work Phone: Start: 06-07-2013 End: 01-05-2017 Follow Up Appt 3 months Follow Up Appt 3 months [facility] Work Phone: Start: 06-07-2013 End: 01-05-2017 Follow Up Appt 6 months Follow Up Appt 6 months [facility] Work Phone: Start: 06-07-2013 End: 12-23-2013 Lipid panel [AGGREGATE] *Lipid Profile CC PCP [facility] Work Phone: Start: 06-07-2013 End: 01-05-2017 Pacer Clinic Pacer Clinic [facility] Work Phone: Start: 06-07-2013 End: 01-05-2017 PFM PFM [facility] Work Phone: Start: 06-07-2013 End: 12-23-2013 *Hepatic Function Panel *Hepatic Function Panel [facility] Work Phone: Start: 06-07-2013 End: 01-05-2017 Follow Up Appt 3 months Follow Up Appt 3 months [facility] Work Phone: Start: 06-07-2013 End: 01-05-2017 Follow Up Appt 6 months Follow Up Appt 6 months [facility] Work Phone: Start: 06-07-2013 End: 12-23-2013 Lipid panel [AGGREGATE] *Lipid Profile CC PCP [facility] Work Phone: Start: 06-07-2013 End: 01-05-2017 Pacer Clinic Pacer Clinic [facility] Work Phone: Start: 06-07-2013 End: 01-05-2017 PFM PFM [facility] Work Phone: Start: 05-31-2013 End: 04-14-2014 Cardiac Referral Cardiac Referral [address] [place] [address], [address], [place], [address] [facility] Work Phone: Start: 05-31-2013 End: 04-14-2014 Cardiac Referral Cardiac Referral [address] [place] [address], [address], [place], [address] [facility] Work Phone: Start: 03-07-2013 End: 06-06-2013 *Hepatic Function Panel *Hepatic Function Panel [facility] Work Phone: Start: 03-07-2013 End: 06-06-2013 Lipid panel [AGGREGATE] *Lipid Profile [facility] Work Phone: Start: 03-07-2013 End: 06-06-2013 *Hepatic Function Panel *Hepatic Function Panel [facility] Work Phone: Start: 03-07-2013 End: 06-06-2013 Lipid panel [AGGREGATE] *Lipid Profile [facility] Work Phone: Start: 02-13-2013 End: 02-27-2013 Surgery Referral Surgery Referral Rakan Barronrina, [address] [facility], [address], [place], [address] [facility] Work Phone: Start: 02-13-2013 End: 02-27-2013 Surgery Referral Surgery Referral Rakan Lopez, [facility], [address], [place], [address] [facility] Work Phone: Start: 01-31-2013 End: 01-31-2013 *BMP *BMP [facility] Work Phone: Start: 01-31-2013 End: 01-31-2013 CBC W Auto Differential panel - Blood *CBC without Diff [facility] Work Phone: Start: 01-31-2013 End: 02-20-2013 Surgery Referral Surgery Referral Dilshad Durán MD, [facility], [address] [facility], [address], [place], [address] [facility] Work Phone: Start: 01-31-2013 End: 01-31-2013 Thyroid stimulating hormone (TSH) *TSH [facility] Work Phone: Start: 01-31-2013 End: 01-31-2013 *BMP *BMP [facility] Work Phone: Start: 01-31-2013 End: 01-31-2013 CBC W Auto Differential panel - Blood *CBC without Diff [facility] Work Phone: Start: 01-31-2013 End: 02-20-2013 Surgery Referral Surgery Referral Dilshad Durán MD, [facility], [address] [facility], [address], [place], [address] [facility] Work Phone: Start: 01-31-2013 End: 01-31-2013 Thyroid stimulating hormone (TSH) *TSH [facility] Work Phone: Start: 12-27-2012 End: 01-05-2017 Follow Up Appt 3 months Follow Up Appt 3 months [facility] Work Phone: Start: 12-27-2012 End: 12-27-2012 Follow Up Appt 6 months Follow Up Appt 6 months [facility] Work Phone: Start: 12-27-2012 End: 01-05-2017 Pacer Clinic Pacer Clinic [facility] Work Phone: Start: 12-27-2012 End: 12-27-2012 PFM PFM [facility] Work Phone: Start: 12-27-2012 End: 01-05-2017 Follow Up Appt 3 months Follow Up Appt 3 months [facility] Work Phone: Start: 12-27-2012 End: 12-27-2012 Follow Up Appt 6 months Follow Up Appt 6 months [facility] Work Phone: Start: 12-27-2012 End: 01-05-2017 Pacer Clinic Pacer Clinic [facility] Work Phone: Start: 12-27-2012 End: 12-27-2012 PFM PFM [facility] Work Phone: Start: 06-08-2012 End: 01-05-2017 *Hepatic Function Panel *Hepatic Function Panel [facility] Work Phone: Start: 06-08-2012 End: 06-08-2012 Follow Up Appt 6 months Follow Up Appt 6 months [facility] Work Phone: Start: 06-08-2012 End: 01-05-2017 Lipid panel [AGGREGATE] *Lipid Profile [facility] Work Phone: Start: 06-08-2012 End: 06-08-2012 Follow Up Appt 6 months Follow Up Appt 6 months [facility] Work Phone: Start: 06-07-2012 End: 01-05-2017 *Hepatic Function Panel *Hepatic Function Panel [facility] Work Phone: Start: 06-07-2012 End: 01-05-2017 Lipid panel [AGGREGATE] *Lipid Profile [facility] Work Phone: Start: 06-07-2012 End: 09-19-2012 *Hepatic Function Panel *Hepatic Function Panel [facility] Work Phone: Start: 06-07-2012 End: 09-19-2012 Lipid panel [AGGREGATE] *Lipid Profile [facility] Work Phone: Start: 05-30-2012 End: 04-14-2014 Cardiac Referral Cardiac Referral [address] [place] [address], [address], [place], [address] [facility] Work Phone: Start: 05-30-2012 End: 04-14-2014 Cardiac Referral Cardiac Referral [address] [place] [address], [address], [place], [address] [facility] Work Phone: Start: 02-27-2012 End: 03-13-2012 Infectious Disease Infectious Disease SukiKarthik Garcia MD Infectious Disease, [address] [place], [place] [address]e., [address], [place], [address] [facility] Work Phone: Start: 02-27-2012 End: 03-13-2012 Infectious Disease Infectious Disease SukiK[facility]ik Garcia MD Infectious Disease, [address] [place] [address] Ave[address], [place], [address] [facility] Work Phone: Start: 02-20-2012 End: 02-21-2012 Follow Up as scheduled Follow Up as scheduled [facility] Work Phone: Start: 02-20-2012 End: 02-21-2012 Follow Up as scheduled Follow Up as scheduled [facility] Work Phone: Start: 01-16-2012 End: 01-16-2012 Follow Up as scheduled Follow Up as scheduled [facility] Work Phone: Start: 01-16-2012 End: 04-14-2014 Surgery Referral Surgery Referral Rakan Lopez, [address], [address], [place], [address] [facility] Work Phone: Start: 01-16-2012 End: 01-16-2012 Follow Up as scheduled Follow Up as scheduled [facility] Work Phone: Start: 01-16-2012 End: 04-14-2014 Surgery Referral Surgery Referral Rakan Lopez, [facility], [address] [place], [address] [facility] Work Phone: Start: 11-25-2011 End: 01-05-2017 *BMP *BMP [facility] Work Phone: Start: 11-25-2011 End: 01-05-2017 *CBC with Differential *CBC with Differential [facility] Work Phone: Start: 11-25-2011 End: 11-25-2011 Device Interrogation Device Interrogation [facility] Work Phone: Start: 11-25-2011 End: 11-25-2011 Ecg routine ecg w/least 12 lds w/i&r EKG (In office) [facility] Work Phone: Start: 11-25-2011 End: 11-25-2011 Echocardiography Echocardiogram (complete) [facility] Work Phone: Start: 11-25-2011 End: 11-25-2011 Follow Up Appt 6 months Follow Up Appt 6 months [facility] Work Phone: Start: 11-25-2011 End: 11-25-2011 Nuclear stress test -adenosine Nuclear stress test -adenosine [facility] Work Phone: Start: 11-25-2011 End: 01-05-2017 Thyroid stimulating hormone (TSH) *TSH [facility] Work Phone: Start: 11-25-2011 End: 01-05-2017 Thyroxine (T4) *T4 (Total) [facility] Work Phone: Start: 11-25-2011 End: 01-05-2017 *BMP *BMP [facility] Work Phone: Start: 11-25-2011 End: 01-05-2017 *CBC with Differential *CBC with Differential [facility] Work Phone: Start: 11-25-2011 End: 11-25-2011 Device Interrogation Device Interrogation [facility] Work Phone: Start: 11-25-2011 End: 11-25-2011 Echocardiography Echocardiogram (complete) [facility] Work Phone: Start: 11-25-2011 End: 11-25-2011 Electrocardiogram, complete EKG (In office) [facility] Work Phone: Start: 11-25-2011 End: 11-25-2011 Follow Up Appt 6 months Follow Up Appt 6 months [facility] Work Phone: Start: 11-25-2011 End: 11-25-2011 Nuclear stress test -adenosine Nuclear stress test -adenosine [facility] Work Phone: Start: 11-25-2011 End: 01-05-2017 Thyroid stimulating hormone (TSH) *TSH [facility] Work Phone: Start: 11-25-2011 End: 01-05-2017 Thyroxine (T4) *T4 (Total) [facility] Work Phone: Start: 09-16-2011 End: 09-16-2011 Follow Up Appt 6 months Follow Up Appt 6 months [facility] Work Phone: Start: 09-16-2011 End: 09-16-2011 Follow Up Appt 6 months Follow Up Appt 6 months [facility] Work Phone: Start: 06-15-2011 End: 06-15-2011 Follow Up Appt 3 months Follow Up Appt 3 months [facility] Work Phone: Start: 06-15-2011 End: 06-15-2011 Follow Up Appt 3 months Follow Up Appt 3 months [facility] Work Phone: Start: 05-06-2011 End: 06-15-2011 Cardiac Referral Cardiac Referral Abdi Reyna MD, [facility], [address], [place], [address] [facility] Work Phone: Start: 05-06-2011 End: 06-15-2011 Cardiac Referral Cardiac Referral Abdi Reyna MD, [facility], [address], [place], [address] [facility] Work Phone: Start: 01-10-2011 End: 06-15-2011 Follow Up Appt 6 months Follow Up Appt 6 months [facility] Work Phone: Start: 01-10-2011 End: 06-15-2011 Follow Up Appt 6 months Follow Up Appt 6 months [facility] Work Phone: Patient Education [facility] Work Phone: Immunizations Immunization Date Immunization Notes [facility] 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 Work Phone: [facility] Payers Date Payer Category Payer Self-pay [id number] 2024 Medicare [id number] 2024 Unknown [id number] 2013 Unknown [id number] Unknown [employer] TPA [id number] Unknown [id number] 2.16.8 [id number] Unknown [id number] 2.16.8 [id number] Unknown [id number] 2.16.8 [id number] Unknown [id number] 2.16.8 [id number] Unknown [id number] 2.16.8 [id number] Unknown [id number] 2.16.8 [id number] Unknown [id number] 2.16.8 [id number] Unknown [id number] 2.16.8 [id number] Unknown [id number] 2.16.8 [id number] Unknown [id number] 2.16.8 [id number] Unknown [id number] 2.16.8 [id number] Unknown [id number] 2.16.8 [id number] Social History Date Type Detail Facility Start: 04-28-2022 End: 06-05-2023 Tobacco smoking status NHIS Unknown if ever smoked [facility] Start: 1955 Sex Assigned At Male [facility] Start: 06-05-2023 Tobacco smoking stat us NHIS Ex-smoker (finding) [facility] Radiology Diagnostic study note 02-18-2025 Note Date & Type Note Facility 02-18-2025 Radiology Diagnostic study note [facility] Imaging Services [address] [place] [address] Knee 4 or More Views MR#: [id number] Acct: [id number] Name: OLESYA LANDON Rep #: [id number] : 1955 M 69 From: Jazmin Byrne MD PCP: Dr. 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 DO Status: REG CLI Study:Knee 4 or More Views Date of Exam: 02/17/25 Exam# [id number] Ordering Dr: 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 DO PROCEDURE: KNEE 4 OR MORE VIEWS 02/17/2025 REASON FOR EXAM: PAIN IN RIGHT KNEE TECHNIQUE: KNEE 4 OR MORE VIEWS COMPARISON: No FINDINGS: Tiny osteophytes. No significant osteoarthritis. No acute bone or soft tissue pathology. RAD/Knee 4 or More Views IMPRESSION: Near normal examination Reading Location: RAD-BYRNE-2 CC: Dr. 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 January 15, 2025 10:49am Ventricular tachycardia chronic J [facility] 2024 10:49am Atherosclerotic heart disease 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 pectoris chronic January 15, 2025 10:50am Essential hypertension chronic Ju [place] 2024 10:50am H/O cardiac radiofrequency ablation 2001 chronic January 10:50am Hyperlipidemia chronic January 15, 2025 10:50am 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 January 15, 2025 10:50am Ventricular tachycardia chronic J [facility] 2024 10:50am [facility] Work Phone: Evaluation note Note Date & Type Note Facility Evaluation note Diagnosis Onset Date Atherosclerotic heart diseas e 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 pectoris chronic Essential hypertension chron ic H/O cardiac radiofrequency ablation 2001 chronic History of coronary artery s tent placement 2002 chronic Hyperlipidemia chronic 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 chronic 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 H/O cardiac radiofrequency ablation 2002 chronic 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 [facility] Work Phone: Evaluation note Note Date & Type Note Facility Evaluation note Diagnosis Onset Date 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 chronic 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 Fatigue acute Atherosclerotic heart diseas e 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 pectoris chronic Essential hypertension chron ic H/O cardiac radiofrequency ablation 2002 chronic Hyperlipidemia chronic 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 chronic 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: Evaluation note Note Date & Type Note Facility Evaluation note No assessment information availa [facility] Work Phone: Evaluation note Note Date & Type Note Facility Evaluation note Diagnosis Onset Date H/O cardiac radiofrequency ablation 2002 chronic 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 chronic 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 Atherosclerotic heart diseas e 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 pectoris chronic Essential hypertension chron ic H/O cardiac radiofrequency ablation 2002 chronic Hyperlipidemia chronic 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 chronic 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: Evaluation note Note Date & Type Note Facility Evaluation note Diagnosis Onset Date Resolution Atherosclerotic heart disease 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 pectoris chronic January 15, 2025 10:50am Essential hypertension chronic Ju 2024 10:50am H/O cardiac radiofrequency ablation 2001 chronic January 10:50am Hyperlipidemia chronic January 15, 2025 10:50am 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 See s PFM@ 4pm NEED ORDER Reason for Visit Atherosclerotic hear t disease 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 pectoris Essential hypertension H/O cardiac radiofrequency ablation History of coronary artery stent placement Hyperlipidemia Presence of automatic (implantable) cardiac defibrillator Ventricular tachycardia H/O cardiac radiofrequency ablation Presence of automatic (implantable) cardiac defibrillator Chief Complaint E ORDERS FROM DR. CONNIE MUNROE 6 m fu/ 11am w BLANCA Reason for Visit Presence of automati c (implantable) cardiac defibrillator Ventricular tachycardia Fatigue Atherosclerotic heart disease 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 pectoris Essential hypertension H/O cardiac radiofrequency ablation Hyperlipidemia Presence of automatic (implantable) cardiac defibrillator Ventricular tachycardia Chief Complaint E-ORDER Chief Complaint E-ORDER 6 m fu/ 1030 w [facility] 6 m fu/ 10am w BLANCA PSA Reason for Visit H/O cardiac radiofre quency ablation Presence of automatic (implantable) cardiac defibrillator Ventricular tachycardia Atherosclerotic heart disease 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 pectoris Essential hypertension H/O cardiac radiofrequency ablation Hyperlipidemia Presence of automatic (implantable) cardiac defibrillator Ventricular tachycardia Chief Complaint Admit Date INT LAB ORDERS January 13, 2025 10:22 am 6 M In-Clinic Check/ Sees JR @ 11:30 Jan 10:49am 6 M FU/ Sees Blanca @ 11 January 15, 2025 10 :50am Reason for Visit Admit Date Atherosclerotic heart diseas e 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 pectoris January 15, 2025 10:50am Essential hypertension January 15, 2025 1 0:50am H/O cardiac radiofrequency ablation January 15, 2025 10:50am Hyperlipidemia January 15, 2025 10:5 0am Presence of automatic (implantable) card iac defibrillator January 15, 2025 10:50am Ventricular tachycardia January 15, 2025 10:50am Reason for Visit Admit Date H/O cardiac radiofrequency ablation January 15, 2025 10:49am Presence of automatic (implantable) card iac defibrillator January 15, 2025 10:49am Ventricular tachycardia January 15, 2025 10:49am Atherosclerotic heart diseas e 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 pectoris January 15, 2025 10:50am Essential hypertension January 15, 2025 1 0:50am H/O cardiac radiofrequency ablation January 15, 2025 10:50am Hyperlipidemia January 15, 2025 10:5 0am Presence of automatic (implantable) card iac defibrillator January 15, 2025 10:50am Ventricular tachycardia January 15, 2025 10:50am Chief Complaint Admit Date INT LAB ORDERS January 13, 2025 10:22 am Pacer Check Remote January 15, 2025 9:00 am 6 M In-Clinic Check/ Sees JR @ 11:30 Jaiden 2024 10:49am 6 M FU/ Sees Blanca @ 11 January 15, 2025 10 :50am Chief Complaint Admit Date INT LAB ORDERS January 13, 2025 10:22 am Pacer Check Remote January 15, 2025 9:00 am 6 M In-Clinic Check/ Sees JR @ 11:30 Jaiden e 2024 10:49am 6 M FU/ Sees Blanca @ 11 January 15, 2025 10 :50am XRAY RIGHT KNEE February 17, 2025 4:35 pm Advance Directives No Advanced Directives Records Found Advance Directive Response Recorded Date/ Time Advance Directives No February 19 7:59am Living Will No February 20, 2020 7:59am Power of Travel Registered Nurse Nicu No February 19 0 7:59am Advance Directive Response Recorded Date/ Time Advance Directives No February 19 8:59am Living Will No February 20, 2020 8:59am Power of Travel Registered Nurse Nicu No February 19 0 8:59am Advance Directive Response Recorded Date/ Time Advance Directives No February 19 8:59am Summary Purpose Family History No Family History Records Found Additional Source Comments Goals (unrecognized section and content) Goals may be documented in a n alternate sectionGoals may be documented in an alternate sectionGoals may be documented in an alternate sectionGoals may be documented in an alternate sectionGoals may be documented in an alternate sectionGoals may be documented in an alternate sectionGoals may be documented in an alternate sectionGoals may be documented in an alternate sectionGoals may be documented in an alternate sectionGoals may be documented in an alternate section Care Teams (unrecognized sec tion and content) Team Status: Active Member Role Status Dates Dr. 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 DO Primary Care Provider Active Team Status: Inactive Member Role Status Dates Dr. 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 DO Primary Care Provider Active Start: January 13, 2025 End: January 13, 2025 Terri Lowe PA, PA Attending Provider Active Start: January 13, 2025 End: January 13, 2025 Terri Lowe PA, PA Referring Provider Active Start: January 13, 2025 End: January 13, 2025 Team Status: Inactive Member Role Status Dates Dr. 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 DO Primary Care Provider Active Start: January 15, 2025 End: January 15, 2025 Dr. 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 DO Referring Provider Active Start: January 15, 2025 End: January 15, 2025 Nuris Nur Attending Provider Active Start: 2024 End: January 15, 2025 Team Status: Inactive Member Role Status Dates Dr. 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 DO Primary Care Provider Active Start: January 15, 2025 End: January 15, 2025 Dr. 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 DO Referring Provider Active Start: January 15, 2025 End: January 15, 2025 Tres Guadalupe POT OPERATOR, POT OPERATOR-C Attending Provider Active S tart: January 15, 2025 End: January 15, 2025 Team Status: Active Member Role Status Dates Dr. 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 DO Family Provider Active Dr. 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 DO Primary Care Provider Active Team Status: Inactive Member Role Status Dates Dr. 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 DO Primary Care Provider, Referrin g Provider Active Tres Guadalupe POT OPERATOR, POT OPERATOR-C Attending Provider Active Team Status: Inactive Member Role Status Dates Dr. 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 DO Primary Care Provider Active Tres Guadalupe POT OPERATOR, POT OPERATOR-C Attending Provider, Referring Pro vider Active Dr. Abdi Reyna MD Other Provider Active Team Status: Inactive Member Role Status Dates Dr. 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 DO Primary Care Provider Active Tres Guadalupe POT OPERATOR, POT OPERATOR-C Attending Provider, Referring Pro vider Active Team Status: Inactive Member Role Status Dates Dr. 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 DO Primary Care Provider, Referrin g Provider Active Nuris Nur Attending Provider Active Team Status: Inactive Member Role Status Dates Dr. 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 DO Primary Care Provider Active Dr. Corona Webster MD Attending Provider, Referr ing Provider Active Team Status: Inactive Member Role Status Dates Dr. 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 DO Primary Care Provider Active Dr. Corona Webster MD Attending Provider Active Team Status: Active Member Role Status Dates Dr. 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 DO Primary Care Provider Active Start: January 13, 2025 Terri Lowe PA, PA Attending Provider Active Start: January 13, 2025 Terri MARTINEZ PA Referring Provider Active Start: January 13, 2025 Team Status: Active Member Role Status Dates Dr. 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 DO Primary Care Provider Active Start: January 15, 2025 Dr. 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 DO Referring Provider Active Start: January 15, 2025 Nuris Nur Attending Provider Active Start: J 2024 Team Status: Inactive Member Role Status Dates Dr. 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 DO Primary Care Provider Active Start: January 15, 2025 End: January 15, 2025 Dr. Vin Doe MD Attending Provider Active S tart: January 15, 2025 End: January 15, 2025 Team Status: Active Member Role/Relationship Status Dates Dr. 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 DO Primary Care Provider Active Team Status: Inactive Member Role/Relationship Status Dates Dr. 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 DO Primary Care Provider Active Start: January 13, 2025 End: January 13, 2025 MICHELLE Nuñez Attending Provider Active Start: January 13, 2025 End: January 13, 2025 Terri MARTINEZ PA Referring Provider Active Start: January 13, 2025 End: January 13, 2025 Team Status: Inactive Member Role/Relationship Status Dates Dr. 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 DO Primary Care Provider Active Start: January 15, 2025 End: January 15, 2025 Dr. Vin Doe MD Attending Provider Active S tart: January 15, 2025 End: January 15, 2025 Team Status: Inactive Member Role/Relationship Status Dates Dr. 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 DO Primary Care Provider Active Start: January 15, 2025 End: January 15, 2025 Dr. Vin Doe MD Attending Provider Active S tart: January 15, 2025 End: January 15, 2025 Dr. Vin Doe MD Referring Provider Active S tart: January 15, 2025 End: January 15, 2025 Team Status: Inactive Member Role/Relationship Status Dates Dr. 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 DO Primary Care Provider Active Start: January 15, 2025 End: January 15, 2025 Dr. 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 DO Referring Provider Active Start: January 15, 2025 End: January 15, 2025 Tres Guadalupe POT OPERATOR, POT OPERATOR-C Attending Provider Active S tart: January 15, 2025 End: January 15, 2025 Team Status: Inactive Member Role/Relationship Status Dates Dr. 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 DO Primary Care Provider Active Start: February 17, 2025 End: February 17, 2025 Dr. 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 DO Attending Provider Active Start: February 17, 2025 End: February 17, 2025 Dr. 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 DO Referring Provider Active Start: February 17, 2025 End: February 17, 2025 (unrecognized sect ion and content) No Status Records Found INFORMATION SOURCE (unrecogn ized section and content) DATE CREATED AUTHOR 05/23/2025 [facility] FOR RECORDS PERTAINING TO PATIENTS WHO ARE OR HAVE BEEN ENROLLED IN A CHEMICAL DEPENDENCY/SUBSTANCEABUSE PROGRAM, SOME INFORMATION MAY BE OMITTED. This clinical summary was aggregated from multiple sources. Caution should be exercised in using it in the provision of clinical care. This summary normalizes information from multiple sources, and as a consequence, information in this document may materially change the coding, format and clinical context of patient data. In addition, data may be omitted in some cases. CLINICAL DECISIONS SHOULD BE BASED ON THE PRIMARY CLINICAL RECORDS. [employer] provides no warranty or guarantee of the accuracy or completeness of information in this document.
== END | disposition home or self-care (01) ==
LOC: LAB 14:17
PROVIDERS: PCP Family Medicine; Referring Provider Urology; Visit Provider Urology
DX: C61 Malignant neoplasm of prostate (principal)
CPT/HCPCS: 36415; 84153

== ENCOUNTER → 2025-07-25 | Outpatient (CLI) | payer MEDICARE, OTHER, SELFPAY ==
[2025-07-25 11:13] LABS: AST(SGOT) 27 U/L (<=37); Alanine Aminotransfer ALT/SGPT 26 U/L (<=46); Albumin, Serum 4.2 g/dL (3.4-4.8); Alkaline Phosphatase 67 U/L (40-129); Bilirubin, Direct 0.18 mg/dL (0.00-0.30); Cholesterol 142 mg/dL (<=200); Globulin 2.5 g/dL (2.2-4.2); Low Density Lipoprotein Calc. 83 mg/dL; Triglycerides 77 mg/dL; Very Low Density Lipoprotein 15 mg/dL (5-40); cholesterol:hdl ratio screen 3.22
== END | disposition home or self-care (01) ==
LOC: LAB 09:41
PROVIDERS: PCP Family Medicine; Referring Provider Nurse Practitioner Family; Visit Provider Nurse Practitioner Family
DX: E78.00 Pure hypercholesterolemia, unspecified (principal)
CPT/HCPCS: 36415; 80061; 80076